=== PATIENT | male | born 1970 | race Caucasian/White ===

== ENCOUNTER 2018-03-10 16:04 | Outpatient (REF) | payer MEDICAID, SELFPAY ==
[2018-03-10 20:16] LABS: Abs Immature Grans 0.03 k/cumm (0.0-0.09); Absolute Basophil Count 0.07 k/cumm (0.0-0.2); Absolute Lymphocyte Count 2.57 k/cumm (1.2-3.4); Absolute Monocyte Count 0.36 k/cumm (0.11-0.7); Absolute Neutrophil Count 2.37 k/cumm (1.2-6.7); Basophils % 1.3; Eosinophils % 3.6; Immature Grans % 0.5; Lymphocytes % 45.9; Mean Corp. HGB Concentration 35.6 g/dL (32.0-36.0); Mean Corpuscular Hemoglobin 30.6 pg (27.0-33.0); Mean Platelet Volume 10.4 fL (8.0-11.0); Monocytes % 6.4; Neutrophils % 42.3; Platelet Count 247 x1000/uL (130-400); RBC 5.23 m/cumm (4.50-6.00); RBC Distribution Width 12.5 % (11.8-14.1)
[2018-03-10 20:23] LABS: Mono Screening Negative (Negative)
== END 2018-03-10 16:24 ==
LOC: NCHCN 16:04
PROVIDERS: PCP Specialist/Technologist Athletic Trainer; Visit Provider Specialist/Technologist Athletic Trainer
DX: R53.83 Other fatigue (principal)
CPT/HCPCS: 85025; 86308

== ENCOUNTER 2018-03-17 09:59 | Outpatient (REF) | payer MEDICAID, SELFPAY ==
[2018-03-17 19:33] LABS: Abs Immature Grans 0.02 k/cumm (0.0-0.09); Absolute Basophil Count 0.07 k/cumm (0.0-0.2); Absolute Eosinophil Count 0.25 k/cumm (0.0-0.7); Absolute Lymphocyte Count 2.58 k/cumm (1.2-3.4); Absolute Monocyte Count 0.45 k/cumm (0.11-0.7); Absolute Neutrophil Count 2.49 k/cumm (1.2-6.7); Basophils % 1.2; Eosinophils % 4.3; HCT 44.7 % (40.0-50.0); HGB 16.1 g/dL (13.5-17.5); Immature Grans % 0.3; Mean Corpuscular Hemoglobin 30.4 pg (27.0-33.0); Mean Corpuscular Volume 84.5 fL (80-95); Mean Platelet Volume 9.8 fL (8.0-11.0); Monocytes % 7.7; Neutrophils % 42.5; Platelet Count 246 x1000/uL (130-400); RBC 5.29 m/cumm (4.50-6.00); RBC Distribution Width 12.3 % (11.8-14.1); White Blood Cell Count 5.86 k/cumm (4.4-10.8)
[2018-03-17 19:47] LABS: Anion Gap 10.1 mmol/L (3-11); BUN 19 mg/dL (7-18); C-Reactive Protein 0.17 mg/dL (0.0-0.3); CO2 24.9 mmol/L (21.0-32.0); Calcium 9.1 mg/dL (8.5-10.1); Chloride 104 mmol/L (98-107); Glucose 115 mg/dL (70-100); Magnesium 1.7 mg/dL (1.8-2.4); Potassium 4.1 mmol/L (3.5-5.1); Sodium 139 mmol/L (136-145)
[2018-03-17 21:04] LABS: ESR 5 MM/HR (0-15)
== END 2018-03-17 10:19 ==
LOC: NCHCN 09:59
PROVIDERS: PCP Specialist/Technologist Athletic Trainer; Visit Provider Specialist/Technologist Athletic Trainer
DX: R53.83 Other fatigue (principal)
CPT/HCPCS: 80048; 85652; 83735; 84443; 85025; 86140

== ENCOUNTER 2018-05-22 12:17 | Outpatient (REF) | payer MEDICAID, SELFPAY ==
[2018-05-22 19:18] LABS: HCT 43.6 % (40.0-50.0); HGB 15.4 g/dL (13.5-17.5); Mean Corp. HGB Concentration 35.3 g/dL (32.0-36.0); Mean Corpuscular Hemoglobin 30.4 pg (27.0-33.0); Mean Platelet Volume 10.4 fL (8.0-11.0); Platelet Count 243 x1000/uL (130-400); RBC 5.07 m/cumm (4.50-6.00); RBC Distribution Width 12.7 % (11.8-14.1); White Blood Cell Count 6.14 k/cumm (4.4-10.8)
[2018-05-22 19:30] LABS: ALT 25 U/L (12-78); AST 16 U/L (15-37); Albumin 3.8 g/dL (3.4-5.0); Alkaline Phosphatase 97 U/L (46-116); Anion Gap 10.9 mmol/L (3-11); BUN 16 mg/dL (7-18); Bilirubin, Total 0.6 mg/dL (0.2-1.0); CO2 25.1 mmol/L (21.0-32.0); Calcium 8.6 mg/dL (8.5-10.1); Chloride 106 mmol/L (98-107); Glucose 86 mg/dL (70-100); Potassium 3.9 mmol/L (3.5-5.1); Sodium 142 mmol/L (136-145); Total Protein 6.7 g/dL (6.4-8.2)
== END 2018-05-22 12:37 ==
LOC: NCHCN 12:17
PROVIDERS: PCP Specialist/Technologist Athletic Trainer; Visit Provider Nurse Practitioner Family
DX: R53.83 Other fatigue (principal); R51 Headache
CPT/HCPCS: 80053; 85027

== ENCOUNTER 2018-08-04 05:48 | Emergency (ER) | payer MEDICAID, SELFPAY ==
--- NOTE | 2018-08-04 05:50 | W.ED.GENAD ---
Discharge Plan Disposition Patient Disposition: HOME Condition: Stable Discharge Details Chief Complaint: Abd Prob Clinical Impression: Abdominal pain Primary Care Provider: Braxton Suero ED Provider: Maira Noel Home Meds and New Rx's Prescriptions: New ondansetron HCl [Zofran] 4 mg tablet 4 mg PO TID PRN (Reason: nausea and vomiting) Qty: 6 RF: 0 dicyclomine 20 mg tablet 20 mg PO QID PRN (Reason: abdominal pain) Qty: 10 RF: 0 Continued omeprazole 40 MG capsule,delayed release(DR/EC) 40 mg PO BID Qty: 60 RF: 3 aspirin 81 mg Tablet,Delayed Release (Dr/Ec) 81 mg PO DAILY RF: 0 Discharge Instructions Instructions: Abdominal Pain (ED) Additional Instructions: Take the Zofran as needed and directed for nausea and vomiting and the Bentyl as needed and directed for pain. Alternate Tylenol and Motrin as needed directed for pain. Follow-up with gastroenterology appointment scheduled for you at [facility] on September 29 at 9 AM. Return immediately to the emergency department with any worsening or concerning symptoms. Discharge Data Discharge Date/Time-TO BE ENTERED AT DEPARTURE: 08/04/18 09:40 Discharge Physician: Maira Noel Medical Decision Making <Dung Valero MD - Last Filed: 08/04/18 19:52> 48 yo male with hx of diverticulitis, gerd, comes in with chief complaint of left lower abdominal pain worsening for 1 day. Has had nausea but no vomit, denies fevers. Has had a ex lap and states they took his appendix out when they did this. He has no scrotal pain or swelling and no urinary symptoms. On exam he has no upper or right sided pain, has llq pain with minimal guarding. Will obtain lab work and imaging to eval for possible diverticulitis among other pathology pt's labs are unremarkable, awaiting CT. Still has quite a bit of pain, will order dilaudid CT scan shows no acute findings. Still has pain in the left lower and now has pain in the right lower abdomen, still no pain on testicle exam. he has mild guarding still in the left and is in severe pain. Will obtain surgical consult given his degree of pain pt will be signed out to oncoming provider pending surgical consult Differential Diagnosis diverticulitis, pneumoperitoneum, colitis Medical Records Medical records reviewed: Yes I reviewed the patient's medical records. Imaging Data Radiologic Study: Attestation: I personally reviewed and interpreted this imaging study as follows: Imaging: CT Scan Radiologist's impression: no acute findings Lab Data Lab results reviewed: Yes I reviewed the patient's lab results. <Maira Ross Schwartzfatimah, - Last Filed: 08/04/18 09:31> Please see Dr. Valero's note for initial presentation, exam and plan. Patient is a 48-year-old male with a history of diverticulitis, GERD, depression, suicide attempt and chronic abdominal pain who presented to ED with complaint of constant sharp lower abdominal pain, worse in the left lower quadrant since yesterday. Patient states the pain was worse after eating popcorn and felt similar to his previous episode of diverticulitis 3 years ago. Patient had lab work and imaging done on arrival which were unremarkable. Per Dr. Valero's reassessment, patient still in severe pain and was referred for surgical consult. Case was endorsed to follow-up with Dr. Teran regarding her recommendations. Discussed with Dr. Teran and she has seen patient multiple times in the past for chronic abdominal pain, as well as performed an EGD and colonoscopy in May of last year which noted mild esophagitis, gastritis, mild sigmoid diverticulosis as well as small internal hemorrhoids. She reviewed the CAT scan and does not see any acute findings and has no other recommendations for patient at this time. She states that there was a possible consideration for IBS in the past. She had referred patient to GI at [facility] in the past and recommends that patient follow-up with them for reevaluation. Patient has no risk factors or physical exam findings consistent with ischemia, so I do not see further indication for imaging for this at this time. Patient had a CTA abdomen 10/2017 which was negative. Had a long discussion with patient in the room as he is still complaining of pain. Patient discussed that he has been told in the past that he possibly could have IBS. Discussed with patient that with reassuring vital signs, lab work and CT imaging, do not see any acute indication for further testing or admission at this time and he is understanding of this and feels okay to go home at this time. Will give a dose of Zofran and Bentyl here as well as prescriptions for home. Care management was able to arrange for a follow-up appointment for patient with gastroenterology at [facility] on September 29 at 9 AM. He was also placed on a wait list. He is instructed to return here immediately with any significant worsening or new concerning symptoms. Medical Records Medical records reviewed: Yes I reviewed the patient's medical records. Imaging Data Radiologic Study: Radiologist's impression: CT Abdomen and Pelvis With Contrast EXAM DATE/TIME: 08/04/2018 5:56 AM FINDINGS: Lungs: Stable 7 mm subpleural nodule within the posterior segment of the left lower lobe (4:1). ABDOMEN: Liver: Normal. No mass. Gallbladder and bile ducts: Normal. No calcified stones. No ductal dilation. Pancreas: Normal. No ductal dilation. Spleen: Normal. No splenomegaly. Adrenals: Normal. No mass. Kidneys and ureters: Exophytic bilateral renal cysts. Stomach and bowel: Colonic diverticulosis. Appendix: Appendectomy. PELVIS: Bladder: Unremarkable as visualized. Reproductive: Prostate is enlarged. ABDOMEN and PELVIS: Intraperitoneal space: Normal. No free air. No significant fluid collection. Bones/joints: No acute fracture. No dislocation. Soft tissues: Unremarkable. Vasculature: Normal. No abdominal aortic aneurysm. Lymph nodes: Normal. No enlarged lymph nodes. IMPRESSION: No evidence of acute abdominopelvic pathology. Lab Data Lab results reviewed: Yes I reviewed the patient's lab results. Laboratory Tests Range/Units 08/04/18 08/04/18 08/04/18 06:16 06:16 06:16 WBC (4.4-10.8) k/cumm 5.18 RBC (4.50-6.00) m/cumm 5.26 Hgb (13.5-17.5) g/dL 16.0 Hct (40.0-50.0) % 44.2 MCV (80-95) fL 84.0 MCH (27.0-33.0) pg 30.4 MCHC (32.0-36.0) g/dL 36.2 H RDW (11.8-14.1) % 12.5 Plt Count (130-400) x1000/uL 224 MPV (8.0-11.0) fL 9.5 Immature Gran % 1.0 Neutrophils % 48.5 Lymphocytes % 36.3 Monocytes % 8.1 Eosinophils % 4.4 Basophils % 1.7 Absolute Neutrophils (1.2-6.7) k/cumm 2.51 Absolute Lymphocytes (1.2-3.4) k/cumm 1.88 Absolute Monocytes (0.11-0.7) k/cumm 0.42 Absolute Eosinophils (0.0-0.7) k/cumm 0.23 Absolute Basophils (0.0-0.2) k/cumm 0.09 PT (9.3-11.0) sec 10.2 INR (0.9-1.1) 1.0 APTT (21.0-31.4) sec 24.3 Sodium (136-145) mmol/L 139 Potassium (3.5-5.1) mmol/L 3.7 Chloride (98-107) mmol/L 103 Carbon Dioxide (21.0-32.0) mmol/L 27.9 Anion Gap (3-11) mmol/L 8.1 BUN (7-18) mg/dL 17 Creatinine (0.70-1.30) mg/dL 1.10 Estimated GFR/1.73 m2 (mL/min/1.73m2) >= 60.00 Glucose (70-100) mg/dL 125 H Calcium (8.5-10.1) mg/dL 8.3 L Magnesium (1.8-2.4) mg/dL 1.8 Total Bilirubin (0.2-1.0) mg/dL 0.6 AST (15-37) U/L 16 ALT (12-78) U/L 32 Alkaline Phosphatase (46-116) U/L 90 Total Protein (6.4-8.2) g/dL 6.7 Albumin (3.4-5.0) g/dL 3.6 Lipase (73-393) U/L 93 HPI <Dung Valero MD - Last Filed: 08/04/18 19:52> General Mode of arrival: ambulatory. Date/Time Provider Initiated Documentation: 08/04/18 05:50. Limitations to Documentation: no limitations. Information obtained by: patient. History of Present Illness 48 year old M presents to the emergency department with the chief complaint of abdominal pain, described as moderate, Quality is described as stabbing, and is localized to the abdomen. Patient reports no radiation. Patient started experiencing this day(s) (1) and it has been constant. No relieving factors improve symptom(s), No exacerbating factors reported . Patient notes other (nausea). Patient did receive the following treatments prior to arrival, none Related Data Home Medications Medication Instructions Recorded Confirmed omeprazole 40 mg PO BID #60 tab-cap 06/09/17 08/04/18 aspirin 81 mg PO DAILY 08/04/18 08/04/18 dicyclomine 20 mg PO QID PRN #10 tab 08/04/18 ondansetron HCl [Zofran] 4 mg PO TID PRN #6 tab 08/04/18 Previous Rx's Medication Instructions Recorded omeprazole 40 mg PO BID #60 tab-cap 06/09/17 dicyclomine 20 mg PO QID PRN #10 tab 08/04/18 ondansetron HCl [Zofran] 4 mg PO TID PRN #6 tab 08/04/18 Allergies Allergy/AdvReac Type Severity Reaction Status Date / Time No Known Allergies Allergy Unverified 08/04/18 05:53 Review of Systems <Dung Valero MD - Last Filed: 08/04/18 19:52> Review of Systems All systems reviewed & are unremarkable except as noted in HPI and below Constitutional Denies chills and Denies fever(s) Cardiovascular Denies chest pain and Denies dyspnea Respiratory Denies cough and Denies dyspnea Gastrointestinal Denies abdominal pain, Denies nausea and Denies vomiting PFSH <Dung Valero MD - Last Filed: 08/04/18 19:52> Medical History Diverticulitis Family History Grandfather No problems noted. Social History Smoking/Tobacco Use Status: Never Drug use: Occasionally Do you feel safe at home: Yes Do you feel safe in your relationship?: Yes Exam <Dung Valero MD - Last Filed: 08/04/18 19:52> Const General: no acute distress Orientation: alert HENOR Head: normal to inspection Ears: external ears normal General nose exam: external nose normal Mouth: moist mucous membranes Eyes General: appearance normal, both eyes and all related structures Neck Neck: normal visual inspection Resp Effort & Inspection: normal respiratory effort and able to speak in complete sentences Cardio Rate: regular rate GI Inspection: normal to inspection and no abdominal wall ecchymosis Skin General skin exam: no rashes or lesions noted Neuro General: alert and oriented x3 Extrem General: normal to inspection Psych Mental Status: mental status grossly normal Sign Out <Dung Valero MD - Last Filed: 08/04/18 19:52> Sign Out Data: Sign Out Comment: follow up on general surgery recommendations Last updated by Dung Valero MD at 08/04/18 07:44
[2018-08-04 05:51] VITALS: BP 158/107; PULSE 65; RESP 22; TEMP 37; O2SAT 96
--- NOTE | 2018-08-04 05:55 | DI.CT_ITS ---
SYMPTOM/DIAGNOSIS: LT LOW ABD PAIN ABDOMEN AND PELVIC CT: CT scan of the abdomen and pelvis was performed following the uneventful administration of intravenous contrast material. Comparison examination is 05/30/17. The lung bases again show left lower lobe pulmonary nodules which appear stable. The liver is normal in size. The portal, superior mesenteric and splenic veins are patent. The gallbladder is negative. There is no biliary ductal dilatation. The pancreas, spleen and adrenal glands are unremarkable. The kidneys show normal and symmetric enhancement. No evidence of a solid renal mass or obstruction is present. There are stable bilateral renal cysts. The urinary bladder is intact. The reproductive organs are unremarkable. The abdominal aorta is of normal caliber with mild atherosclerosis. No aneurysmal dilatation is present. No significant abdominal or pelvic adenopathy, ascites or pneumoperitoneum is present. There is diverticulosis seen in the sigmoid colon but no evidence of acute diverticulitis. The bowel is otherwise unremarkable. No findings of an acute appendicitis are present. The bones appear intact. IMPRESSION: No evidence of an acute abdomen.
[2018-08-04] MEDS: Ondansetron 4 MG/2 ML VIAL IVP (06:18)
[2018-08-04] MEDS: Normal Saline 1,000 ML 1000 ML IV (06:18)
[2018-08-04] MEDS: Ketorolac 15 MG/ML VIAL IVP (06:18)
[2018-08-04 06:23] LABS: Abs Immature Grans 0.05 k/cumm (0.0-0.09); Absolute Basophil Count 0.09 k/cumm (0.0-0.2); Absolute Eosinophil Count 0.23 k/cumm (0.0-0.7); Absolute Lymphocyte Count 1.88 k/cumm (1.2-3.4); Absolute Monocyte Count 0.42 k/cumm (0.11-0.7); Absolute Neutrophil Count 2.51 k/cumm (1.2-6.7); Basophils % 1.7; Eosinophils % 4.4; HCT 44.2 % (40.0-50.0); Lymphocytes % 36.3; Mean Corp. HGB Concentration 36.2 g/dL (32.0-36.0); Mean Corpuscular Hemoglobin 30.4 pg (27.0-33.0); Mean Platelet Volume 9.5 fL (8.0-11.0); Monocytes % 8.1; Neutrophils % 48.5; Platelet Count 224 x1000/uL (130-400); RBC 5.26 m/cumm (4.50-6.00); RBC Distribution Width 12.5 % (11.8-14.1); White Blood Cell Count 5.18 k/cumm (4.4-10.8)
[2018-08-04 06:36] LABS: ALT 32 U/L (12-78); AST 16 U/L (15-37); Albumin 3.6 g/dL (3.4-5.0); Alkaline Phosphatase 90 U/L (46-116); Anion Gap 8.1 mmol/L (3-11); BUN 17 mg/dL (7-18); Bilirubin, Total 0.6 mg/dL (0.2-1.0); CO2 27.9 mmol/L (21.0-32.0); Calcium 8.3 mg/dL (8.5-10.1); Chloride 103 mmol/L (98-107); Glucose 125 mg/dL (70-100); Lipase 93 U/L (73-393); Magnesium 1.8 mg/dL (1.8-2.4); PTT Activated 24.3 sec (21.0-31.4); Potassium 3.7 mmol/L (3.5-5.1); Prothrombin Time 10.2 sec (9.3-11.0); Sodium 139 mmol/L (136-145); Total Protein 6.7 g/dL (6.4-8.2)
[2018-08-04] MEDS: Omnipaque 350 MG/ML 100 ML BTL IJ (06:37)
[2018-08-04] MEDS: HYDROmorphone 2 MG/ML VIAL 1 MG IVP (06:55)
--- NOTE | 2018-08-04 07:29 | DI.VRAD_ITS ---
EXAM: CT Abdomen and Pelvis With Contrast EXAM DATE/TIME: 08/04/2018 5:56 AM CLINICAL HISTORY: 48 years old, male; Abdominal pain; Localized; Left lower quadrant (llq); Patient HX: HX diverticulitis; Additional info: Bloody stool a couple days after eating popcorn. HX diverticulitis TECHNIQUE: Imaging protocol: Axial computed tomography images of the abdomen and pelvis with intravenous contrast. Coronal and sagittal reformatted images were created and reviewed. Radiation optimization: All CT scans at this facility use at least one of these dose optimization techniques: automated exposure control; mA and/or kV adjustment per patient size (includes targeted exams where dose is matched to clinical indication); or iterative reconstruction. Contrast material: [id number]; Contrast volume: 100 ml; Contrast route: IV; COMPARISON: CT ABD PELVIS WITH CONTRAST 05/30/2017 5:30 PM FINDINGS: Lungs: Stable 7 mm subpleural nodule within the posterior segment of the left lower lobe (4:1). ABDOMEN: Liver: Normal. No mass. Gallbladder and bile ducts: Normal. No calcified stones. No ductal dilation. Pancreas: Normal. No ductal dilation. Spleen: Normal. No splenomegaly. Adrenals: Normal. No mass. Kidneys and ureters: Exophytic bilateral renal cysts. Stomach and bowel: Colonic diverticulosis. Appendix: Appendectomy. PELVIS: Bladder: Unremarkable as visualized. Reproductive: Prostate is enlarged. ABDOMEN and PELVIS: Intraperitoneal space: Normal. No free air. No significant fluid collection. Bones/joints: No acute fracture. No dislocation. Soft tissues: Unremarkable. Vasculature: Normal. No abdominal aortic aneurysm. Lymph nodes: Normal. No enlarged lymph nodes. IMPRESSION: No evidence of acute abdominopelvic pathology. Dictated and Authenticated by: Melvin Flood MD. Ordering:LADI Razo MD
[2018-08-04] MEDS: Dicyclomine 20 MG TAB PO (08:51)
[2018-08-04] MEDS: Ondansetron O.D.T. 4 MG TABEF PO (08:52)
[2018-08-04 09:38] VITALS: BP 130/78; PULSE 72; RESP 18; TEMP 37; O2SAT 96
--- NOTE | 2018-08-04 09:58 | PDOC.ERCMPRO ---
Care Management Progress Note 08/04-Dr. Noel requested assistance with a [facility] appt for abdominal pain ?IBS. Dr. jalloh has seen Malachi and referred him to [facility] in the past. Called [facility] and spoke with Laura. Laura scheduled Malachi to see Maira Stauffer APRN on September 29 at 0900. Laura has also added Malachi to the high priority wait list. Laura requested provider note and demographics be faxed to [phone] for which was done. Patient given appt card. Dr. Noel aware and in agreement with the above.
--- NOTE | 2018-08-04 10:09 | CMPROGNOTE_ITS ---
Care Management Progress Note 08/04-Dr. Noel requested assistance with [place] [facility] [place]. Dr. jalloh has seen Malachi and referred him [place] [facility] [place] [place]. [place] [facility] and spoke with Laura. Laura scheduled Malachi to see Maira Stauffer APRN on September 29 at 0900. Laura has also added Malachi to the high priority wait list. Laura requested provider note and demographics be faxed to [phone] for which was done. Patient given appt card. Dr. Noel aware and in agreement with the above.
== END 2018-08-04 09:40 | disposition home or self-care (01) ==
PROVIDERS: Emergency Medicine; Emergency Provider Physician Assistant; PCP Specialist/Technologist Athletic Trainer
DX: R10.31 Right lower quadrant pain (principal); R10.32 Left lower quadrant pain; Z98.890 Other specified postprocedural states
CPT/HCPCS: 80053; 83690; 96361; 96374; 96375; 99285; 74177; 83735; 85025; 85610; 85730; 99284; J1885; J2405; J3490

== ENCOUNTER 2018-08-05 15:28 | Emergency (ER) | payer MEDICAID, SELFPAY ==
[2018-08-05 16:08] VITALS: BP 150/83; PULSE 57; RESP 16; TEMP 36.7; O2SAT 98
[2018-08-05] MEDS: Ondansetron 4 MG/2 ML VIAL IVP (16:19)
[2018-08-05] MEDS: Normal Saline 500 ML 1000 ML IV (16:19)
[2018-08-05] MEDS: Pantoprazole 40 MG VIAL IVP (16:25)
[2018-08-05] MEDS: Metoclopramide 10 MG/2 ML VIAL IVP (16:30)
[2018-08-05 16:42] LABS: Abs Immature Grans 0.05 k/cumm (0.0-0.09); Absolute Basophil Count 0.09 k/cumm (0.0-0.2); Absolute Eosinophil Count 0.23 k/cumm (0.0-0.7); Absolute Lymphocyte Count 2.77 k/cumm (1.2-3.4); Absolute Monocyte Count 0.49 k/cumm (0.11-0.7); Absolute Neutrophil Count 2.55 k/cumm (1.2-6.7); Basophils % 1.5; Eosinophils % 3.7; HCT 42.1 % (40.0-50.0); HGB 15.3 g/dL (13.5-17.5); Immature Grans % 0.8; Lymphocytes % 44.8; Mean Corp. HGB Concentration 36.3 g/dL (32.0-36.0); Mean Corpuscular Hemoglobin 30.7 pg (27.0-33.0); Mean Corpuscular Volume 84.4 fL (80-95); Mean Platelet Volume 9.7 fL (8.0-11.0); Monocytes % 7.9; Neutrophils % 41.3; Platelet Count 223 x1000/uL (130-400); RBC 4.99 m/cumm (4.50-6.00); RBC Distribution Width 12.4 % (11.8-14.1); White Blood Cell Count 6.18 k/cumm (4.4-10.8)
[2018-08-05] MEDS: Sucralfate 1 GM TAB PO (16:45)
[2018-08-05 16:54] LABS: ALT 31 U/L (12-78); AST 15 U/L (15-37); Albumin 3.6 g/dL (3.4-5.0); Alkaline Phosphatase 91 U/L (46-116); BUN 13 mg/dL (7-18); Bilirubin, Total 0.4 mg/dL (0.2-1.0); CREATININE 1.16 mg/dL (0.70-1.30); Calcium 8.7 mg/dL (8.5-10.1); Chloride 104 mmol/L (98-107); Glucose 101 mg/dL (70-100); Lipase 96 U/L (73-393); Potassium 3.5 mmol/L (3.5-5.1); Sodium 138 mmol/L (136-145); Total Protein 6.8 g/dL (6.4-8.2)
[2018-08-05 17:09] LABS: Troponin I < 0.02 ng/mL (0.00-0.06)
--- NOTE | 2018-08-05 18:38 | ED.GENADUL_ITS ---
Discharge Plan Disposition Patient Disposition: HOME Condition: Improving Discharge Details Chief Complaint: Abd Prob Clinical Impression: Abdominal pain, Gastritis Primary Care Provider: Nanci Spivey ED Provider: Gian Salazar Home Meds and New Rx's Prescriptions: New ranitidine HCl 300 mg capsule 300 mg PO QHS Qty: 60 RF: 0 sucralfate [Carafate] 100 mg/mL suspension 10 ml PO QID Qty: 420 RF: 2 dicyclomine 20 mg tablet 20 mg PO QID Qty: 20 RF: 0 No Action omeprazole 40 MG capsule,delayed release(DR/EC) 40 mg PO BID Qty: 60 RF: 3 aspirin 81 mg Tablet,Delayed Release (Dr/Ec) 81 mg PO DAILY RF: 0 ondansetron HCl [Zofran] 4 mg tablet 4 mg PO TID PRN (Reason: nausea and vomiting) Qty: 6 RF: 0 dicyclomine 20 mg tablet 20 mg PO QID PRN (Reason: abdominal pain) Qty: 10 RF: 0 Discharge Instructions Instructions: Gastritis (ED), Abdominal Pain (ED) Additional Instructions: Please avoid any citrus-based products, mint products, spicy products, tomato- based products, caffeine, or coffee. Take the medication as directed. Use additional Mylanta as needed for pain. Please take the Bentyl as directed. If you notice any worsening of your symptoms, or any new symptoms such as vomiting, diarrhea, worsening abdominal pain, fever, chills, shortness of breath, chest pain, numbness, weakness, or fainting , please return immediately to the emergency department for reevaluation. Please follow up with your primary care provider as soon as possible for reassessment and reevaluation. As always, it was a pleasure participating in your medical care today. Stand Alone Forms: Work Release Referrals: Nanci Spivey [Primary Care Provider] - Discharge Data Discharge Date/Time-TO BE ENTERED AT DEPARTURE: 08/05/18 18:50 Medical Decision Making This is a pleasant 48-year-old male who presents today for evaluation of diffuse abdominal pain. He was seen and assessed yesterday, had a very appropriate work-up and after no significant abnormalities on CT imaging or labs, and feeling better he was discharged home with follow-up on an outpatient basis. He presents today for continuation of his mild to moderate generalized abdominal pain. There appears to be no focality. He has no vomiting or diarrhea. He does admit to occasional bright red blood in his stools, this is usually on the outside. His pain seems to be notable is really worse after eating, and the pain becomes severe roughly 5 to 10 minutes after eating. Although it is diffuse in nature he does describe some focality in the left upper abdominal quadrant. No clinical evidence of an appendicitis or acute cholecystitis clinically. Vital signs are notably reassuring with no tachycardia or fever. I did present the option of reimaging in the patient through shared decision making process would like to hold off on any additional CT scans. We did elect to do a repeat laboratory evaluation, and treat with a GI cocktail as there is a strong concern that his symptoms seem to be related to a gastric ulcer-like presentation, especially with his known history of this. Laboratory work-up has returned, lipase is normal, troponin is normal, EKG benign, no white count, electrolyte abnormality, bandemia or left shift. He has notably reassuring labs. After the GI cocktail the patient was actually feeling much better. He continues to demonstrate a nonsurgical abdomen with no medical evidence of an acute surgical pathology or recurrent life-threatening etiology requiring immediate admission or surgical intervention. With the patient's known history of gastric ulcer disease, those symptoms ameliorated by a GI cocktail, I do feel that his symptoms are most likely secondary to peptic ulcer disease. Stool Hemoccult was performed and this was negative for any evidence of blood. Clinical signs and symptoms as well as laboratory work-up is inconsistent with upper or lower GI bleed, I imagine it is mild hemorrhoids and fissures causing the bright red blood. We will start the patient on maximum dose [id number], recommend continuation of his omeprazole. We will give Bentyl, prescription for Carafate, for home use. We discussed the absolute importance of strict diet adherence. Discussed red flags for which to return and the importance of follow-up with his GI specialist at [facility]. I have extensively reviewed the treatment plan and discharge instructions with the patient and their family. I have addressed all patient concerns at this time. The patient and family was made aware of what symptoms to monitor for that would warrant a return to the emergency department. Discussed the plan with the patient and family, they demonstrate verbal understanding and agreement with our assessment and plan at this time. EKG 17: 22 Rate 52, sinus bradycardia, GA 200, intervals otherwise normal, no significant ST elevations or depressions, inverted T wave in lead III and aVR, unchanged from prior EKG on 11/13/2017. No evidence of STEMI. HPI General Date/Time Provider Initiated Documentation: 08/05/18 15:37 . HPI Narrative: This is a 48-year-old male with a past medical history of known gastritis, gastric ulcers, who presents today for evaluation of diffuse abdominal pain. The patient was seen and assessed here yesterday, at that time he had a thorough work-up by my colleagues Dr. Valero and Dr. Noel. At that time he had a negative CT scan of his abdomen and pelvis, benign laboratory work-up. Surgical consult was requested of Dr. Teran at that time, and although she did not personally see the patient she did review the labs and images and felt that there was nothing that she could add to his current management. Eventually the patient's pain improved and he was discharged home after having a gastroenterology appointment set up for him at [facility]. Patient is on omeprazole but denies any other new GI medications. He presents today for continuation of the pain. He describes it as gnawing and aching with associated nausea throughout his entire abdomen. No specific focality. He does smoke marijuana but only occasionally. He denies any vomiting or dry heaving. He denies any diarrhea. He does admit to seeing occasional bright red blood on the outside of his stool. He denies any melena. He states that when this occurs he does have pain with his bowel movement. After he does have a bowel movement his pain does slightly improved. He does also admit to bloating. Mild pain in his low back, and his pain is notably worsened with eating. Patient states that the pain gets significantly worse roughly 5 to 10 minutes after he eats. He does drink 1 cup of coffee a day, he denies any spicy foods, but occasionally does have tomato-based foods and mint-based foods. He denies significant citric food intake. Patient denies any other modifying factors. No other complaints at this time. Related Data Home Medications Medication Instructions Recorded Confirmed omeprazole 40 mg PO BID #60 tab-cap 06/09/17 08/05/18 aspirin 81 mg PO DAILY 08/04/18 08/05/18 dicyclomine 20 mg PO QID PRN #10 tab 08/04/18 08/05/18 ondansetron HCl [Zofran] 4 mg PO TID PRN #6 tab 08/04/18 08/05/18 dicyclomine 20 mg PO QID #20 tab 08/05/18 ranitidine HCl 300 mg PO QHS #60 cap 08/05/18 sucralfate [Carafate] 10 ml PO QID #420 ml 08/05/18 Previous Rx's Medication Instructions Recorded omeprazole 40 mg PO BID #60 tab-cap 06/09/17 dicyclomine 20 mg PO QID PRN #10 tab 08/04/18 ondansetron HCl [Zofran] 4 mg PO TID PRN #6 tab 08/04/18 dicyclomine 20 mg PO QID #20 tab 08/05/18 ranitidine HCl 300 mg PO QHS #60 cap 08/05/18 sucralfate [Carafate] 10 ml PO QID #420 ml 08/05/18 Allergies Allergy/AdvReac Type Severity Reaction Status Date / Time No Known Allergies Allergy Unverified 08/05/18 17:47 General Stated Complaint: Abd Prob NEELIMA: 3 Review of Systems Review of Systems All systems reviewed & are unremarkable except as noted in HPI and below PFSH Medical History Diverticulitis Family History Grandfather No problems noted. Social History Smoking/Tobacco Use Status: Never Drug use: Occasionally Do you feel safe at home: Yes Do you feel safe in your relationship?: Yes Exam Narrative Exam Narrative: 1.Const: Well-nourished, Well-developed, appearing stated age 2.Eyes: PERRL, no conjunctival injection, and symmetrical lids. 3.ENT: Atraumatic external nose and ears. Moist MM. Neck: Symmetric, trachea midline, No thyromegaly. 4.CVS: +S1/S2, No murmurs or gallops. Peripheral pulses 2+ and equal in all extremities. Brisk capillary refill in all extremities. 5.RESP: Unlabored respiratory effort. Clear to auscultation bilaterally. No wheezes rales or rhonchi 6.GI: Soft, Nondistended, No hepatosplenomegaly. No guarding or rebound. No pain at McBurney's point, negative Kline sign. Diffuse subjective tenderness throughout. No flank or CVA tenderness. Negative obturator and psoas signs. 7.MSK: Normocephalic/Atraumatic, Extremities w/o deformity or ttp No cyanosis or clubbing, Normal movement of all extremities 8.Skin: Warm, Dry. No rashes or lesions. 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 Sensation grossly intact, no focal neurologic deficits. 10.Psych: (AAO) x3. Appropriate mood and affect Course Vital Signs Temperature 36.7 C 08/05/18 16:08 Pulse 57 L 08/05/18 16:08 Respiratory Rate 16 08/05/18 16:08 Blood Pressure 150/83 H 08/05/18 16:08 Pulse Oximetry 98 08/05/18 16:08 Temperature 36.7 C 08/05/18 16:08 Temperature Source Skin 08/05/18 16:08 Pulse 57 L 08/05/18 16:08 Respiratory Rate 16 08/05/18 16:08 Respiratory Effort 08/05/18 16:08 Blood Pressure 150/83 H 08/05/18 16:08 Blood Pressure Position Sitting 08/05/18 16:08 Pulse Oximetry 98 08/05/18 16:08 Oxygen Delivery Method Room Air 08/05/18 16:08 Oxygen Flow Rate 0 08/05/18 16:08 Pain Level 9 08/05/18 16:08 Lab/Test Results Lab/Test Results: Laboratory Tests Range/Units 08/05/18 08/05/18 08/05/18 16:05 16:05 16:05 WBC (4.4-10.8) k/cumm 6.18 RBC (4.50-6.00) m/cumm 4.99 Hgb (13.5-17.5) g/dL 15.3 Hct (40.0-50.0) % 42.1 MCV (80-95) fL 84.4 MCH (27.0-33.0) pg 30.7 MCHC (32.0-36.0) g/dL 36.3 H RDW (11.8-14.1) % 12.4 Plt Count (130-400) x1000/uL 223 MPV (8.0-11.0) fL 9.7 Immature Gran % 0.8 Neutrophils % 41.3 Lymphocytes % 44.8 Monocytes % 7.9 Eosinophils % 3.7 Basophils % 1.5 Absolute Neutrophils (1.2-6.7) k/cumm 2.55 Absolute Lymphocytes (1.2-3.4) k/cumm 2.77 Absolute Monocytes (0.11-0.7) k/cumm 0.49 Absolute Eosinophils (0.0-0.7) k/cumm 0.23 Absolute Basophils (0.0-0.2) k/cumm 0.09 Sodium (136-145) mmol/L 138 Potassium (3.5-5.1) mmol/L 3.5 Chloride (98-107) mmol/L 104 Carbon Dioxide (21.0-32.0) mmol/L 27.0 Anion Gap (3-11) mmol/L 7.0 BUN (7-18) mg/dL 13 Creatinine (0.70-1.30) mg/dL 1.16 Estimated GFR/1.73 m2 (mL/min/1.73m2) >= 60.00 Glucose (70-100) mg/dL 101 H Calcium (8.5-10.1) mg/dL 8.7 Total Bilirubin (0.2-1.0) mg/dL 0.4 AST (15-37) U/L 15 ALT (12-78) U/L 31 Alkaline Phosphatase (46-116) U/L 91 Troponin I (0.00-0.06) ng/mL < 0.02 Total Protein (6.4-8.2) g/dL 6.8 Albumin (3.4-5.0) g/dL 3.6 Lipase (73-393) U/L 96
[2018-08-05] MEDS: Dicyclomine 20 MG TAB PO (18:40)
[2018-08-05 18:55] VITALS: BP 138/93; PULSE 56; RESP 16; TEMP 36.7; O2SAT 98
[2018-08-11 12:19] LABS: Helicobacter pylori Ag, Feces Negative (NEGAT)
== END 2018-08-05 18:50 | disposition home or self-care (01) ==
PROVIDERS: Emergency Provider Student in an Organized Health Care Education/Training Program; PCP Nurse Practitioner Family
DX: R10.84 Generalized abdominal pain (principal); R10.12 Left upper quadrant pain; K29.00 Acute gastritis without bleeding; R11.0 Nausea
CPT/HCPCS: 36415; 80053; 83690; 87338; 93005; 96361; 96374; 96375; 99284; 84484; 85025; 93010; 99285; J2405; J2765

== ENCOUNTER 2018-08-11 10:24 | Emergency (ER) | payer MEDICAID, SELFPAY ==
[2018-08-11 10:31] VITALS: BP 140/92; PULSE 52; PULSE 55; RESP 11; O2SAT 96
[2018-08-11 10:34] VITALS: BP 164/98; PULSE 53; RESP 12; TEMP 36.5; O2SAT 96
[2018-08-11 10:46] VITALS: BP 144/98; PULSE 50; PULSE 51; RESP 11; O2SAT 97
--- NOTE | 2018-08-11 10:56 | DI.CT_ITS ---
SYMPTOMS/DIAGNOSIS: LEFT EYE VISION LOSS NONCONTRAST HEAD CT: No intracranial hemorrhage, mass or infarct is seen. The ventricles are normal in size. There is no evidence of atrophy. The sinuses show mild mucosal thickening. No air fluid levels or bony destruction is seen. The mastoid air cells appear clear. IMPRESSION: Sinus disease, otherwise negative.
[2018-08-11 11:01] VITALS: BP 161/100; PULSE 47; PULSE 56; RESP 16; O2SAT 95
[2018-08-11 11:14] LABS: Abs Immature Grans 0.06 k/cumm (0.0-0.09); Absolute Basophil Count 0.08 k/cumm (0.0-0.2); Absolute Eosinophil Count 0.21 k/cumm (0.0-0.7); Absolute Monocyte Count 0.38 k/cumm (0.11-0.7); Absolute Neutrophil Count 2.34 k/cumm (1.2-6.7); Basophils % 1.4; Eosinophils % 3.6; HGB 15.7 g/dL (13.5-17.5); Lymphocytes % 46.8; Mean Corp. HGB Concentration 36.5 g/dL (32.0-36.0); Mean Corpuscular Volume 84.8 fL (80-95); Mean Platelet Volume 9.4 fL (8.0-11.0); Monocytes % 6.6; Neutrophils % 40.6; Platelet Count 224 x1000/uL (130-400); RBC 5.07 m/cumm (4.50-6.00); RBC Distribution Width 12.6 % (11.8-14.1); White Blood Cell Count 5.77 k/cumm (4.4-10.8)
[2018-08-11] MEDS: Acetaminophen 500 MG TAB 1000 MG PO (11:27)
[2018-08-11] MEDS: diphenhydrAMINE 50 MG/ML VIAL 25 MG IVP (11:27)
[2018-08-11] MEDS: Normal Saline 1,000 ML 1000 ML IV (11:28)
[2018-08-11] MEDS: Prochlorperazine 10 MG/2 ML VIAL IVP (11:29)
--- NOTE | 2018-08-11 11:30 | ED.GENADUL_ITS ---
Discharge Plan Disposition Patient Disposition: HOME Condition: Good Discharge Details Chief Complaint: Headache Clinical Impression: Ophthalmic migraine Primary Care Provider: Nanci Spivey ED Provider: Gian Salazar Home Meds and New Rx's Prescriptions: New sumatriptan succinate [Imitrex] 25 mg tablet 25 mg PO ONCE Qty: 10 RF: 0 No Action omeprazole 40 MG capsule,delayed release(DR/EC) 40 mg PO BID Qty: 60 RF: 3 aspirin 81 mg Tablet,Delayed Release (Dr/Ec) 81 mg PO DAILY RF: 0 dicyclomine 20 mg tablet 20 mg PO QID PRN (Reason: abdominal pain) Qty: 10 RF: 0 ranitidine HCl 300 mg capsule 300 mg PO QHS Qty: 60 RF: 0 sucralfate [Carafate] 100 mg/mL suspension 10 ml PO QID Qty: 420 RF: 2 Discharge Instructions Instructions: Ocular Migraine (ED) Additional Instructions: Please follow-up promptly with neurology. I suspect that you have an ocular migraine as the cause of your symptoms. If you notice any return of your symptoms so please return immediately for reassessment. 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 If you notice any worsening of your symptoms, or any new symptoms such as vomiting, diarrhea, fever, chills, shortness of breath, chest pain, numbness, weakness, or fainting , please return immediately to the emergency department for reevaluation. Please follow up with your primary care provider as soon as possible for reassessment and reevaluation. As always, it was a pleasure participating in your medical care today. Referrals: Nanci Spivey [Primary Care Provider] - Medical Decision Making This is a very pleasant 48-year-old male who presents for intermittent left eye vision loss over the last 2 days. Episodes last 1 to 2 minutes, he has had 11 episodes total between today and yesterday. He had a very thorough ophthalmologic work-up yesterday at the [facility], no abnormaliti es were noted at that time. He was discharged home but had continuation and worsening of his symptoms today. He was again seen and assessed there, they continued to note no abnormalities and recommended evaluation here for further assessment. Exam demonstrates a notably normal neurologic exam, normal sensation, and normal vision. Pupils equal round reactive, the retina shows no signs of a vascular component. Bedside ultrasound shows no abnormalities, both eyes were compared and are symmetric in identical, optic nerve is less than 5 mm. Exam demonstrates no evidence of neurologic deficit, neck pain or stiffness. No clinical evidence of meningitis. Pressures in the eyes are symmetric bilaterally and 14 bilaterally. No evidence of acute angle-closure glaucoma. Vision is intact. Differential includes temporal arteritis which I feel less likely, complex optic migraine, or mass. We will get a CT scan to rule out acute intracranial process. We will treat with migraine cocktail, get basic labs, and reassess. 2:[address] scan results have returned there is no evidence of acute intracranial process per Dr. Estrada. After the migraine cocktail the patient had complete resolution of his symptoms. He has no visual complaints whatsoever, and his headache is gone. On reassessment of the historical component, it appears that the visual murray were wildly variant. At one point it was the right side of his vision in his left eye at another point it was the left, one time it was top and one time it was the bottom. 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 Especially with his resolution after migraine cocktail. I discussed with the patient overnight admission, MRI, neurology consult and at this time understanding the risks and benefits, the patient does feel comfortable going home and would like to go home. We will schedule outpatient neurology follow-up, and we have made it very clear that if he has any return of his symptoms he needs to come back immediately for reassessment. We will give Imitrex for home use, he has no cardiac disease, history of cardiac disease or smoking. We discussed red flags which to return, the risks and benefits of discharge versus admission, and the patient understands and is of sound mind. Additionally repeat neurologic exam prior to discharge demonstrates no significant abnormalities. I have extensively reviewed the treatment plan and discharge instructions with the patient. I have addressed all patient concerns at this time. The patient was made aware of what symptoms to monitor for that would warrant a return to the emergency department. Discussed the plan with the patient, they demonstrate verbal understanding and agreement with our assessment and plan at this time. Ocular US Exam type: diagnostic\par Indication for exam: vision complaint Views obtained: Eye transverse and longitudinal Findings and interpretations: all views were adequate. Retinal contour was normal. Vitreous body was anechoic. Lens was well positioned. No evidence of lens dislocation or retinal detachment. Optic nerve was measured and found to be less than 5mm. The patient tolerated the procedure well and there were no complications. EKG 11: 09 Rate 45, LA 214, QTc 382, QRS 90, sinus bradycardia, no significant ST elevations or depression. Inverted T wave in lead III which is chronic, flattened T wave in V2, which appears slightly new from 08/05/2018. No evidence of STEMI. HPI General Date/Time Provider Initiated Documentation: 08/11/18 10:56 . HPI Narrative: This is a pleasant 48-year-old male with a past medical history of notable gastric ulcers for which he is medicated, as well as a history of occasional migraine headaches, who presents today for intermittent left-sided vision loss. The patient states that over the last 2 to 3 days he has had transient loss of vision in his left eye. He would describe it as large black spots, that completely off his gait most of his vision in his left eye. He has associated pain with this, which she describes as an achy-like sensation and pressure behind his eye.. The episodes last 1 to 2 minutes and then completely resolved. When they occur the pain is made worse with light. He denies any worsening of his symptoms with movement. They relieve on their own spontaneously. He did see optometry yesterday and again today, yesterday he had normal macula, normal retinal contour, normal pressures, no evidence of any abnormality, no signs of iritis. He returned again today because of his continued symptoms, optometry again noted normal pressures, and normal exam without abnormality. They sent him over here for further evaluation. The patient does admit to having an episode like this a few years ago, it resolved on his own, with no subsequent abnormalities. He denies any trauma, history of autoimmune disease, history of lupus, stroke, or [place]. He has no history of high cholesterol or diabetes. No other modifying factors. Related Data Home Medications Medication Instructions Recorded Confirmed omeprazole 40 mg PO BID #60 tab-cap 06/09/17 08/11/18 aspirin 81 mg PO DAILY 08/04/18 08/11/18 dicyclomine 20 mg PO QID PRN #10 tab 08/04/18 08/11/18 ranitidine HCl 300 mg PO QHS #60 cap 08/05/18 08/11/18 sucralfate [Carafate] 10 ml PO QID #420 ml 08/05/18 08/11/18 sumatriptan succinate [Imitrex] 25 mg PO ONCE #10 tab 08/11/18 Previous Rx's Medication Instructions Recorded omeprazole 40 mg PO BID #60 tab-cap 06/09/17 dicyclomine 20 mg PO QID PRN #10 tab 08/04/18 ranitidine HCl 300 mg PO QHS #60 cap 08/05/18 sucralfate [Carafate] 10 ml PO QID #420 ml 08/05/18 sumatriptan succinate [Imitrex] 25 mg PO ONCE #10 tab 08/11/18 Allergies Allergy/AdvReac Type Severity Reaction Status Date / Time No Known Allergies Allergy Unverified 08/11/18 10:38 General Stated Complaint: Headache NEELIMA: 2 Review of Systems Review of Systems All systems reviewed & are unremarkable except as noted in HPI and below PFSH Medical History Diverticulitis Family History Grandfather No problems noted. Social History Smoking/Tobacco Use Status: Never Alcohol Intake: current Alcohol Intake frequency: a few times a week Drug use: Occasionally Substance use type: marijuana Do you feel safe at home: Yes Do you feel safe in your relationship?: Yes Exam Narrative Exam Narrative: 1.Const: Well-nourished, Well-developed, appearing stated age 2.Eyes: PERRL, no conjunctival injection, and symmetrical lids. Left eye: EOMI, PERRL, Peripheral vision intact. No nystagmus. Fundoscopic exam shows normal optic discs and normal vasculature. No external signs of preseptal cellulitis, no redness around the eye, no proptosis. No hyphema, no signs of trauma around the eye, no periorbital emphysema. Visual acuity as documented in chart. No tenderness over the left temporal artery. 3.ENT: Atraumatic external nose and ears. Moist MM. Neck: Symmetric, trachea midline, No thyromegaly. 4.CVS: +S1/S2, No murmurs or gallops. Peripheral pulses 2+ and equal in all extremities. Brisk capillary refill in all extremities. 5.RESP: Unlabored respiratory effort. Clear to auscultation bilaterally. No wheezes rales or rhonchi 6.GI: Soft, Nontender/Nondistended, No hepatosplenomegaly. No guarding or rebound. 7.MSK: Normocephalic/Atraumatic, Extremities w/o deformity or ttp No cyanosis or clubbing, Normal movement of all extremities 8.Skin: Warm, Dry. No rashes or lesions. 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 Sensation grossly intact, no focal neurologic deficits. All 6 cardinal planes of vision are fully intact. No evidence of rotatory or vertical nystagmus. The patient demonstrated a normal [id number], good dexterity. There was no evidence of dysdiadochokinesia. Patient was able to ambulate without difficulty. There was no wide-based gait. Romberg, and [id number] are both normal on testing. Sensation was intact bilaterally as well as muscle strength bilaterally for all extremities. Patient was able to verbalize butter cup with no slurring, or miss pronunciation. 10.Psych: (AAO) x3. Appropriate mood and affect Course Vital Signs Temperature 36.5 C 08/11/18 10:34 Pulse 53 L 08/11/18 10:34 Respiratory Rate 12 08/11/18 10:34 Blood Pressure 164/98 H 08/11/18 10:34 Pulse Oximetry 96 08/11/18 10:34 Temperature 36.5 C 08/11/18 10:34 Temperature Source Temporal Artery Scan 08/11/18 10:34 Pulse 53 L 08/11/18 10:34 Respiratory Rate 12 08/11/18 10:34 Respiratory Effort Non-Labored 08/11/18 10:37 Blood Pressure 164/98 H 08/11/18 10:34 Blood Pressure Position Supine 08/11/18 10:34 Pulse Oximetry 96 08/11/18 10:34 Oxygen Delivery Method Room Air 08/11/18 10:34 Oxygen Flow Rate 0 08/11/18 10:34 Pain Level 9 08/11/18 10:34 Comment 08/11/18 10:34 Lab/Test Results Lab/Test Results: Laboratory Tests Range/Units 08/11/18 10:46 WBC (4.4-10.8) k/cumm 5.77 RBC (4.50-6.00) m/cumm 5.07 Hgb (13.5-17.5) g/dL 15.7 Hct (40.0-50.0) % 43.0 MCV (80-95) fL 84.8 MCH (27.0-33.0) pg 31.0 MCHC (32.0-36.0) g/dL 36.5 H RDW (11.8-14.1) % 12.6 Plt Count (130-400) x1000/uL 224 MPV (8.0-11.0) fL 9.4 Immature Gran % 1.0 Neutrophils % 40.6 Lymphocytes % 46.8 Monocytes % 6.6 Eosinophils % 3.6 Basophils % 1.4 Absolute Neutrophils (1.2-6.7) k/cumm 2.34 Absolute Lymphocytes (1.2-3.4) k/cumm 2.70 Absolute Monocytes (0.11-0.7) k/cumm 0.38 Absolute Eosinophils (0.0-0.7) k/cumm 0.21 Absolute Basophils (0.0-0.2) k/cumm 0.08
[2018-08-11 11:32] LABS: ALT 27 U/L (12-78); AST 14 U/L (15-37); Albumin 3.8 g/dL (3.4-5.0); Alkaline Phosphatase 99 U/L (46-116); Anion Gap 9.5 mmol/L (3-11); BUN 14 mg/dL (7-18); Bilirubin, Total 0.4 mg/dL (0.2-1.0); CO2 25.5 mmol/L (21.0-32.0); CREATININE 1.16 mg/dL (0.70-1.30); Calcium 8.6 mg/dL (8.5-10.1); Chloride 105 mmol/L (98-107); Glucose 96 mg/dL (70-100); Potassium 3.8 mmol/L (3.5-5.1); Sodium 140 mmol/L (136-145)
[2018-08-11 11:39] LABS: C-Reactive Protein 0.13 mg/dL (0.0-0.3)
[2018-08-11 11:59] LABS: ESR 4 MM/HR (0-15)
[2018-08-11] MEDS: methylPREDNISolone SUCC 125 MG VIAL IVP (12:51)
[2018-08-11] MEDS: Ketorolac 15 MG/ML VIAL IVP (12:51)
[2018-08-11 14:42] VITALS: BP 161/100; PULSE 47; RESP 16; TEMP 36.5; O2SAT 95
--- NOTE | 2018-08-12 08:10 | CMPROGNOTE_ITS ---
Care Management Progress Note 08/12-Dr Salazar requested assistance with a neurology consult within one month for complex optic migraine. Referral faxed to [facility] Neurology this am.
== END 2018-08-11 14:18 | disposition home or self-care (01) ==
PROVIDERS: Emergency Provider Student in an Organized Health Care Education/Training Program; PCP Nurse Practitioner Family
DX: G43.B0 Ophthalmoplegic migraine, not intractable (principal)
CPT/HCPCS: 80053; 85652; 93005; 99284; 70450; 85025; 86140; 93010; J0780; J1200; J1885; J2930

== ENCOUNTER 2018-09-06 07:00 | Emergency (ER) | payer MEDICAID, SELFPAY ==
[2018-09-06 07:03] VITALS: BP 142/93; PULSE 64; RESP 20; TEMP 36.7; O2SAT 96
--- NOTE | 2018-09-06 07:32 | W.ED.GENAD ---
Discharge Plan Disposition Patient Disposition: HOME Condition: Good Discharge Details Chief Complaint: Cellulitis Clinical Impression: Subungual foreign body of finger Primary Care Provider: Nanci Spivey ED Provider: Gian Salazar Home Meds and New Rx's Prescriptions: New cephalexin [Keflex] 500 mg capsule 500 mg PO QID 7 Days Qty: 28 RF: 0 No Action sumatriptan succinate [Imitrex] 25 mg tablet 25 mg PO ONCE Qty: 10 RF: 0 omeprazole 40 MG capsule,delayed release(DR/EC) 40 mg PO DAILY RF: 0 sucralfate [Carafate] 100 mg/mL suspension 10 ml PO QID Qty: 420 RF: 2 Discharge Instructions Instructions: Cellulitis (ED) Additional Instructions: There is a small amount of infection in your fingertip. Please take the antibiotic as directed. Please wash the fingertip and continue to apply triple antibiotic ointment 2-3 times daily. If you notice any continuing redness, worsening of the redness, spreading, worsening pain, please return immediately for reassessment. Referrals: Nanci Spivey [Primary Care Provider] - Medical Decision Making This is a pleasant 48-year-old male who states that his tetanus is up-to-date presents with complaint of pain under the fingernail of his middle finger on his right hand. He was taking Imdur yesterday which led to a notable amount of dirt going fairly deep under the nail. Currently there is dirt roughly 1 cm back under the nail causing notable pain. There is mild redness in the finger itself. Symptoms are concerning for foreign body under the nail, with mild associated infection. We will perform a digital block, and remove said debris. I do feel that the patient would benefit from a course of antibiotics for improvement of the infection. 8 AM Patient's finger was numbed with 10 cc of a 50-50 mixture of lidocaine with Pinnacaine. Patient tolerated this well, small aspect of the distal tip of his nail was removed, and all debris was removed from underneath the nail. Small splinter was also removed from the pulp aspect of his fingertip. He tolerated all this very well. It was then bandaged after triple antibiotic application. Patient tolerated this well. He will be discharged home. We are unable to find his tetanus status but he assures us that it is up-to-date. He is refusing tetanus shot at this time. I have extensively reviewed the treatment plan and discharge instructions with the patient. I have addressed all patient concerns at this time. The patient was made aware of what symptoms to monitor for that would warrant a return to the emergency department. Discussed the plan with the patient, they demonstrate verbal understanding and agreement with our assessment and plan at this time. HPI General Date/Time Provider Initiated Documentation: 09/06/18 07:15. HPI Narrative: This is a pleasant 48-year-old male who presents today with pain under the fingernail of his middle finger in his right hand. 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 He tried to get it out yesterday however he was unable to get deep enough. Since then he has had notable worsening of his pain, subsequent swelling. He is concerned for infection. He denies any IV or illicit drug use, any trauma, or any other associated complaints. He denies any numbness or tingling. Related Data Home Medications Medication Instructions Recorded Confirmed sucralfate [Carafate] 10 ml PO QID #420 ml 08/05/18 09/06/18 sumatriptan succinate [Imitrex] 25 mg PO ONCE #10 tab 08/11/18 09/06/18 cephalexin [Keflex] 500 mg PO QID 7 Days #28 cap 09/06/18 omeprazole 40 mg PO DAILY 09/06/18 09/06/18 Previous Rx's Medication Instructions Recorded sucralfate [Carafate] 10 ml PO QID #420 ml 08/05/18 sumatriptan succinate [Imitrex] 25 mg PO ONCE #10 tab 08/11/18 cephalexin [Keflex] 500 mg PO QID 7 Days #28 cap 09/06/18 Allergies Allergy/AdvReac Type Severity Reaction Status Date / Time No Known Allergies Allergy Unverified 08/11/18 10:38 General Stated Complaint: Cellulitis NEELIMA: 4 Review of Systems Review of Systems All systems reviewed & are unremarkable except as noted in HPI and below PFSH Medical History Diverticulitis Family History Grandfather No problems noted. Social History Smoking/Tobacco Use Status: Never Alcohol Intake: current Alcohol Intake frequency: a few times a week Drug use: Occasionally Substance use type: marijuana Do you feel safe at home: Yes Do you feel safe in your relationship?: Yes Exam Narrative Exam Narrative: 1.Const: Well-nourished, Well-developed, appearing stated age 2.Eyes: PERRL, no conjunctival injection, and symmetrical lids. 3.ENT: Atraumatic external nose and ears. Moist MM. Neck: Symmetric, trachea midline, No thyromegaly. 4.CVS: +S1/S2, No murmurs or gallops. Peripheral pulses 2+ and equal in all extremities. Brisk capillary refill in all extremities. 5.RESP: Unlabored respiratory effort. Clear to auscultation bilaterally. No wheezes rales or rhonchi 6.GI: Soft, Nontender/Nondistended, No hepatosplenomegaly. No guarding or rebound. 7.MSK: Normocephalic/Atraumatic, Extremities w/o deformity or ttp No cyanosis or clubbing, Normal movement of all extremities. Finger nail of the middle finger on the right hand demonstrates a mild to moderate amount of dirt extending roughly 1 cm under the nail in the central aspect. There is notable redness, tenderness to palpation of the distal fingertip because of this. No subungual hematoma. 8.Skin: Warm, Dry. No rashes or lesions. 9.Neuro: siding mechanic II-XII grossly intact. Sensation grossly intact, no focal neurologic deficits. 10.Psych: (AAO) x3. Appropriate mood and affect Course Vital Signs Temperature 36.7 C 09/06/18 07:03 Pulse 64 09/06/18 07:03 Respiratory Rate 20 09/06/18 07:03 Blood Pressure 142/93 H 09/06/18 07:03 Pulse Oximetry 96 09/06/18 07:03 Temperature 36.7 C 09/06/18 07:03 Temperature Source Skin 09/06/18 07:03 Pulse 64 09/06/18 07:03 Respiratory Rate 20 09/06/18 07:03 Respiratory Effort 09/06/18 07:06 Blood Pressure 142/93 H 09/06/18 07:03 Blood Pressure Position Sitting 09/06/18 07:03 Pulse Oximetry 96 09/06/18 07:03 Oxygen Delivery Method Room Air 09/06/18 07:03 Oxygen Flow Rate 0 09/06/18 07:03 Pain Level 8 09/06/18 07:03
== END 2018-09-06 07:59 | disposition home or self-care (01) ==
PROVIDERS: Emergency Provider Student in an Organized Health Care Education/Training Program; PCP Nurse Practitioner Family
DX: S60.452A Superficial foreign body of right middle finger, initial encounter (principal); L03.113 Cellulitis of right upper limb; X58.XXXA Exposure to other specified factors, initial encounter
CPT/HCPCS: 64450; 99283

== ENCOUNTER 2018-11-08 20:09 | Emergency (ER) | payer MEDICAID, SELFPAY ==
[2018-11-08 20:13] VITALS: BP 141/93; PULSE 71; RESP 18; TEMP 36.7; O2SAT 94
--- NOTE | 2018-11-08 20:26 | ED.GENADUL_ITS ---
Discharge Plan Disposition Patient Disposition: HOME Condition: Improving Discharge Details Chief Complaint: Abd Prob Clinical Impression: Abdominal pain Primary Care Provider: Nanci Spivey ED Provider: Rafael Almanza Home Meds and New Rx's Prescriptions: New amoxicillin-pot clavulanate 875-125 mg tablet 1 tab PO BID 10 Days Qty: 20 RF: 0 Continued sumatriptan succinate [Imitrex] 25 mg tablet 25 mg PO ONCE Qty: 10 RF: 0 omeprazole 40 MG capsule,delayed release(DR/EC) 40 mg PO DAILY RF: 0 Discharge Instructions Instructions: Abdominal Pain (ED) Additional Instructions: Home to rest this evening. Small, frequent sips of fluids to maintain hydration. As we discussed, we will begin a course of Augmentin. I recommend you take an [id number] probiotic once daily in the middle of the day while on the antibiotic. Follow-up with Nanci Arriaga if not improving in 3 to 5 days time. Return to the emergency department if develop progressive or worsening pain, abdominal distention, fever, or any other acute concern Medical Decision Making 48-year-old male presents from home with 3 to 4 days of progressive, constant predominantly right-sided abdominal pain that is worse with eating and worse with movement. He does have history of diverticulitis. Status post appendectomy. He is afebrile with essentially normal vital signs, and exam that reveals significant right-sided abdominal tenderness with mild rebound. Differential diagnosis includes diverticulitis, colitis, biliary colic or cholecystitis. IV placed, labs obtained, patient given fluids, parenteral medications. He is improving. Diagnostics: CBC with white count 7, hematocrit 43, platelets 236. Chemistries notable for BUN of 23, creatinine 1.1, glucose 116, normal LFTs with exception of slightly elevated AST of 86. Troponin negative. Lipase is normal. UA: Unremarkable. CT scan of the abdomen pelvis read as no significant acute findings. His presentation is suspicious for smoldering diverticulitis without radiographic findings. I discussed this with the patient and his at the bedside. We will start a course of Augmentin, single therapy for presumptive diverticulitis. He will follow-up with regular doctor if not improving in 3 to 5 days time. They understand return precautions to the ED Lab Data Lab results reviewed: Yes I reviewed the patient's lab results. Laboratory Results - last 24 hr 11/08/18 11/08/18 20:27 20:27 WBC 7.04 RBC 5.03 Hgb 15.6 Hct 43.1 MCV 85.7 MCH 31.0 MCHC 36.2 H RDW 12.5 Plt Count 236 MPV 9.8 Immature Gran % 0.6 Neutrophils % 44.8 Lymphocytes % 42.2 Monocytes % 8.1 Eosinophils % 3.3 Basophils % 1.0 Absolute Neutrophils 3.16 Absolute Lymphocytes 2.97 Absolute Monocytes 0.57 Absolute Eosinophils 0.23 Absolute Basophils 0.07 Sodium 141 Potassium 3.7 Chloride 106 Carbon Dioxide 23.2 Anion Gap 11.8 H BUN 23 H Creatinine 1.19 Estimated GFR/1.73 m2 >= 60.00 Glucose 116 H Calcium 8.5 Magnesium 1.9 Total Bilirubin 0.4 AST 86 H ALT 61 Alkaline Phosphatase 110 Total Protein 7.1 Albumin 3.8 Lipase 105 ECG Data Attestation: I personally reviewed and interpreted this ECG (s) as follows: Interpretation: Sinus bradycardia, rate 54, the QRS is narrow, there is discrete J-point elevation present in leads I and aVL. No acute ST segment elevation. HPI General Mode of arrival: ambulatory . Date/Time Provider Initiated Documentation: 11/08/18 20:10 . Limitations to Documentation: no limitations . Information obtained by: patient and family . History of Present Illness 48 year old M presents to the emergency department with the chief complaint of Right-sided abdominal pain, described as moderate, Quality is described as dull, and is localized to the abdomen and right. Patient started experiencing this day(s) and it has been constant. Rest improves symptom(s), Eating worsens symptoms and Movement worsens symptoms . Patient notes fever/chills and loss of appetite; denies chest pain. Patient did receive the following treatments prior to arrival, none Related Data Home Medications Medication Instructions Recorded Confirmed sumatriptan succinate [Imitrex] 25 mg PO ONCE #10 tab 08/11/18 11/08/18 omeprazole 40 mg PO DAILY 09/06/18 11/08/18 amoxicillin-pot clavulanate 1 tab PO BID 10 Days #20 tab 11/08/18 Previous Rx's Medication Instructions Recorded sumatriptan succinate [Imitrex] 25 mg PO ONCE #10 tab 08/11/18 amoxicillin-pot clavulanate 1 tab PO BID 10 Days #20 tab 11/08/18 Allergies Allergy/AdvReac Type Severity Reaction Status Date / Time No Known Allergies Allergy Unverified 11/08/18 20:16 General Stated Complaint: Abd Prob NEELIMA: 3 Review of Systems Review of Systems Watery stool, fever and chills, nauseated. No vomiting. Recently well. No travel. 8 systems reviewed and otherwise negative [facility] Medical History Depression (Chronic) Diverticulitis GERD (gastroesophageal reflux disease) (Chronic) Surgical History Appendectomy Colonoscopy - MAC (05/13/17) EGD - MAC (05/13/17) wrist surgery Family History Grandfather No problems noted. Social History Smoking/Tobacco Use Status: Never Alcohol Intake: current Alcohol Intake frequency: a few times a week Drug use: Occasionally Substance use type: marijuana Do you feel safe at home: Yes Do you feel safe in your relationship?: Yes Exam Narrative Exam Narrative: GEN: awake, alert, oriented 3. Pleasant, well groomed, interact carmelita. HEAD: Normocephalic, atraumatic ENT: Mucous membranes moist, oropharynx unremarkable, External ear exam unremarkable EYES: PERRL, EOMI NECK: Full ROM, no NATY, no menigismus CHEST/RESP: Nontender, clear to auscultation bilateral, no wheeze/rhonchi/rales CARDIOVASCULAR: RRR, no murmur, rub dudley. 2+ Rad pulse bilateral ABDOMEN: Soft, tender in the right upper and lower quadrants with mild rebound, no mass. +Bowel sounds, diminished EXT: Full ROM, no edema, no rash Neuro: Grossly normal neurologic exam, conversant, interactive. Psych: Speech fluent, thoughts congruent, affect normal Course Vital Signs Temperature 36.7 C 11/08/18 20:13 Pulse 71 11/08/18 20:13 Respiratory Rate 18 11/08/18 20:13 Blood Pressure 141/93 H 11/08/18 20:13 Pulse Oximetry 94 L 11/08/18 20:13 Temperature 36.7 C 11/08/18 20:13 Temperature Source Skin 11/08/18 20:13 Pulse 71 11/08/18 20:13 Respiratory Rate 18 11/08/18 20:13 Blood Pressure 141/93 H 11/08/18 20:13 Pulse Oximetry 94 L 11/08/18 20:13 Pain Level 8 11/08/18 20:13
[2018-11-08] MEDS: Normal Saline 1,000 ML 1000 ML IV (20:35)
[2018-11-08] MEDS: HYDROmorphone 2 MG/ML VIAL 0.5 MG IVP (20:37)
[2018-11-08] MEDS: Ondansetron 4 MG/2 ML VIAL IVP (20:37)
[2018-11-08 20:39] LABS: Abs Immature Grans 0.04 k/cumm (0.0-0.09); Absolute Basophil Count 0.07 k/cumm (0.0-0.2); Absolute Eosinophil Count 0.23 k/cumm (0.0-0.7); Absolute Lymphocyte Count 2.97 k/cumm (1.2-3.4); Absolute Monocyte Count 0.57 k/cumm (0.11-0.7); Absolute Neutrophil Count 3.16 k/cumm (1.2-6.7); Eosinophils % 3.3; HCT 43.1 % (40.0-50.0); HGB 15.6 g/dL (13.5-17.5); Immature Grans % 0.6; Lymphocytes % 42.2; Mean Corp. HGB Concentration 36.2 g/dL (32.0-36.0); Mean Corpuscular Volume 85.7 fL (80-95); Mean Platelet Volume 9.8 fL (8.0-11.0); Monocytes % 8.1; Neutrophils % 44.8; Platelet Count 236 x1000/uL (130-400); RBC 5.03 m/cumm (4.50-6.00); RBC Distribution Width 12.5 % (11.8-14.1); White Blood Cell Count 7.04 k/cumm (4.4-10.8)
[2018-11-08 21:00] LABS: ALT 61 U/L (12-78); AST 86 U/L (15-37); Albumin 3.8 g/dL (3.4-5.0); Alkaline Phosphatase 110 U/L (46-116); Anion Gap 11.8 mmol/L (3-11); BUN 23 mg/dL (7-18); Bilirubin, Total 0.4 mg/dL (0.2-1.0); CO2 23.2 mmol/L (21.0-32.0); CREATININE 1.19 mg/dL (0.70-1.30); Calcium 8.5 mg/dL (8.5-10.1); Chloride 106 mmol/L (98-107); Glucose 116 mg/dL (70-100); Lipase 105 U/L (73-393); Magnesium 1.9 mg/dL (1.8-2.4); Potassium 3.7 mmol/L (3.5-5.1); Sodium 141 mmol/L (136-145); Total Protein 7.1 g/dL (6.4-8.2)
[2018-11-08] MEDS: Omnipaque 350 MG/ML 100 ML BTL IJ (21:01)
--- NOTE | 2018-11-08 21:05 | DI.CT_ITS ---
SYMPTOM/DIAGNOSIS: RT SIDED ABD PAIN, PREV H/O DIVERTICULITIS ABDOMINAL AND PELVIC CT: 11/08 CT examination of the abdomen and pelvis was performed with a bolus infusion of 100 cc Omnipaque 350. Note is made of two nodules at the left lung base, these measure about 7 and 6 mm in mean diameter respectively. These have been present on previous CT examinations dating back to Jan 2016. These appear stable. Liver, spleen and pancreas appear normal. Gallbladder and bile ducts are CT normal. Adrenals and kidneys are unremarkable in appearance except for small bilateral renal presumed cysts. No evidence of hydronephrosis or nephrolithiasis. Abdominal aorta is of normal diameter and no major vascular abnormalities seen. No significant abdominal wall hernia seen. Appendix appears to have been surgically removed. No evidence of diverticulitis or bowel obstruction. No abdominal or pelvic adenopathy. CONCLUSION: No evidence of acute intra-abdominal process.
[2018-11-08] MEDS: HYDROmorphone 2 MG/ML VIAL 1 MG IVP (21:24)
[2018-11-08 21:27] VITALS: BP 134/77; PULSE 53; RESP 16; O2SAT 95
--- NOTE | 2018-11-08 21:46 | DI.VRAD_ITS ---
Addendum created by Deuce Novak DO on 11/08/2018 9:57:14 PM EDT 7 mm nodule in left lung base. Pseudo-CT is recommended in 6-12 months if at low risk and at 3-6 months if at high risk for development of lung cancer. Initial report created on 11/08/2018 9:46:17 PM EDT EXAM: CT Abdomen and Pelvis With Contrast EXAM DATE/TIME: 11/08/2018 8:26 PM CLINICAL HISTORY: 48 years old, male; Abdominal pain; Generalized; Prior surgery; Surgery date: 6+ months; Surgery type: Appendectomy; Patient HX: Abdominal mostly pain in ruq but also mid abdomen; Additional info: Nausea, watery stool, prev HX of diverticulitis TECHNIQUE: Imaging protocol: Axial computed tomography images of the abdomen and pelvis with intravenous contrast. Coronal and sagittal reformatted images were created and reviewed. Radiation optimization: All CT scans at this facility use at least one of these dose optimization techniques: automated exposure control; mA and/or kV adjustment per patient size (includes targeted exams where dose is matched to clinical indication); or iterative reconstruction. Contrast material: OMNIPAQUE 350;Contrast volume: 100 ml;Contrast route: IV RAC; COMPARISON: CT ABDOMEN PELVIS W 08/04/2018 6:32 AM FINDINGS: Lungs: There is minimal bibasilar atelectasis. 7 mm, average diameter subpleural nodule left lung base. Liver: Normal. No mass. Gallbladder and bile ducts: Normal. No calcified stones. No ductal dilation. Pancreas: Normal. No ductal dilation. Spleen: Normal. No splenomegaly. Adrenals: Normal. No mass. Kidneys and ureters: Simple cyst right kidney. Stomach and bowel: Colonic diverticula. No obstruction. Appendix: No appendix demonstrated. Intraperitoneal space: Normal. No free air. No significant fluid collection. Vasculature: Normal. No abdominal aortic aneurysm. Lymph nodes: Normal. No enlarged lymph nodes. Bladder: Unremarkable as visualized. Reproductive: Unremarkable as visualized. Bones/joints: No acute fracture. No dislocation. Soft tissues: Unremarkable. IMPRESSION: No acute findings. Dictated and Authenticated by: Deuce Novak MD. Ordering:CARY Hall MD
[2018-11-08 22:12] VITALS: BP 125/72; PULSE 55; RESP 16; O2SAT 94
[2018-11-08 22:38] LABS: Troponin I < 0.05 ng/mL (0.00-0.06)
[2018-11-08 23:04] LABS: Bilirubin Negative (Negative); Blood Small (Negative); Clarity Clear (Clear); Glucose Negative (Negative); Ketones Negative (Negative); Leukocyte Esterase Negative (Negative); Nitrite Negative (Negative); Urobilinogen 0.2 EU/dL (Up TO 0.2)
[2018-11-08 23:10] LABS: Bacteria Rare HPF (Negative); C & S Indicated? No; Casts Negative LPF (Negative); Crystals Negative HPF (Negative); Epithelial Cells Rare HPF (Negative); Mucus Negative (Negative); Other Cells Negative (Negative); WBC Negative HPF (0-5)
[2018-11-08 23:11] LABS: RBC 0-2 (0-2)
[2018-11-08 23:25] VITALS: BP 127/79; PULSE 57; RESP 16; O2SAT 97
[2018-11-08] MEDS: Amoxicillin 875/Clav. 125 TAB PO (23:25)
== END 2018-11-08 23:30 | disposition home or self-care (01) ==
PROVIDERS: Emergency Provider Emergency Medicine; PCP Nurse Practitioner Family
DX: R19.7 Diarrhea, unspecified (principal); R50.9 Fever, unspecified; R11.0 Nausea; R10.11 Right upper quadrant pain; R10.31 Right lower quadrant pain
CPT/HCPCS: 36415; 80053; 83690; 93005; 96361; 96374; 96375; 96376; 99285; 74177; 81003; 81015; 83735; 84484; 85025; 93010; 99284; J2405; J3490

== ENCOUNTER 2018-11-11 08:22 | Observation (INO) | payer MEDICAID, SELFPAY ==
[2018-11-11] VITALS (20 sets, daily range): BP systolic 110–153; BP diastolic 61–86; PULSE 53–80; RESP 14–20; TEMP 36–36.8; O2SAT 91–97
--- NOTE | 2018-11-11 08:37 | ED.GENADUL_ITS ---
Discharge Plan Discharge Details Chief Complaint: Abd Prob Primary Care Provider: Nanci Spivey ED Provider: Dung Valero Home Meds and New Rx's Prescriptions: No Action sumatriptan succinate [Imitrex] 25 mg tablet 25 mg PO ONCE Qty: 10 RF: 0 omeprazole 40 MG capsule,delayed release(DR/EC) 40 mg PO DAILY RF: 0 amoxicillin-pot clavulanate 875-125 mg tablet 1 tab PO BID 10 Days Qty: 20 RF: 0 Medical Decision Making 48 yo male with hx of prior appendectomy and was here in the ED on 11/08 and dx'd with likely diverticulitis with negative imaging and started on augment, comes in with acute worsening of pain along with onset of n/v today. Denies fevers, chest pain, dyspnea. Has diffuse pain in the abdomen and is tender most on exam in the lower quadrants, abdomen is not rigid. Pt does appear anxious on exam as well. Will obtain CTA to eval for possible ischemic bowel and obtain lipase and lfts and monitor. ct and labs unremarkable, he is sleeping when I enter the room but when I wake him up he states he still has severe pain and is localizes to the ruq. No evidence of cholelithiasis, cholecystitis on ct. Discussed other imaging we could do and after discussion will obtain u/s to evaluate for possible gallbladder disorders u/s also negative. still has quite a bit of pain and tender in the upper abdomen. Will consult surgery for assessment dr. conrad assessed and will admit for endoscopy Differential Diagnosis colitis, diverticulitis, pneumoperitoneum Imaging Data Radiologic Study: Attestation: I personally reviewed and interpreted this imaging study as follows: Imaging: CT Scan Radiologist's impression: no acute findings Radiologic Study #2: Attestation: I personally reviewed and interpreted this imaging study as follows: Imaging: Ultrasound Radiologist's impression: negative ultrasound Lab Data Lab results reviewed: Yes I reviewed the patient's lab results. HPI General Mode of arrival: ambulatory . Date/Time Provider Initiated Documentation: 11/11/18 08:24 . Limitations to Documentation: no limitations . Information obtained by: patient . History of Present Illness 48 year old M presents to the emergency department with the chief complaint of abdominal pain, described as moderate and severe, Quality is described as stabbing, and is localized to the abdomen. Patient reports no radiation. Patient started experiencing this day(s) (3) No relieving factors improve symptom(s), No exacerbating factors reported . Patient notes nausea/vomiting. Related Data Home Medications Medication Instructions Recorded Confirmed sumatriptan succinate [Imitrex] 25 mg PO ONCE #10 tab 08/11/18 11/08/18 omeprazole 40 mg PO DAILY 09/06/18 11/08/18 amoxicillin-pot clavulanate 1 tab PO BID 10 Days #20 tab 11/08/18 Previous Rx's Medication Instructions Recorded sumatriptan succinate [Imitrex] 25 mg PO ONCE #10 tab 08/11/18 amoxicillin-pot clavulanate 1 tab PO BID 10 Days #20 tab 11/08/18 Allergies Allergy/AdvReac Type Severity Reaction Status Date / Time No Known Allergies Allergy Unverified 11/08/18 20:16 General Stated Complaint: Abd Prob NEELIMA: 3 Review of Systems Review of Systems All systems reviewed & are unremarkable except as noted in HPI and below Constitutional Denies chills, Denies fever(s) and Denies weakness Cardiovascular Denies chest pain and Denies dyspnea Respiratory Denies cough and Denies dyspnea Genitourinary Denies dysuria Integumentary/Breasts Denies rash Neurologic Denies weakness [facility] Social History Smoking/Tobacco Use Status: Never Alcohol Intake: current Alcohol Intake frequency: a few times a week Drug use: Occasionally Substance use type: marijuana Do you feel safe at home: Yes Do you feel safe in your relationship?: Yes Exam Const General: anxious Orientation: alert HENMT Head: normal to inspection Ears: external ears normal General nose exam: external nose normal Mouth: moist mucous membranes Eyes General: appearance normal, both eyes and all related structures Neck Neck: normal visual inspection Resp Effort & Inspection: normal respiratory effort and able to speak in complete sentences Cardio Rate: regular rate GI Palpation: soft Skin General skin exam: no rashes or lesions noted Neuro General: alert and oriented x3 Extrem General: normal to inspection Psych Mental Status: mental status grossly normal Course Vital Signs Temperature 36.4 C L 11/11/18 08:25 Pulse 64 11/11/18 08:25 Respiratory Rate 20 11/11/18 08:25 Blood Pressure 153/74 H 11/11/18 08:25 Pulse Oximetry 95 11/11/18 08:25 Temperature 36.4 C L 11/11/18 08:25 Temperature Source Temporal Artery Scan 11/11/18 08:25 Pulse 64 11/11/18 08:25 Respiratory Rate 20 11/11/18 08:25 Respiratory Effort Non-Labored 11/11/18 08:26 Blood Pressure 153/74 H 11/11/18 08:25 Pulse Oximetry 95 11/11/18 08:25 Pain Level 9 11/11/18 08:26
[2018-11-11] MEDS: Normal Saline 1,000 ML 1000 ML IV (08:46)
[2018-11-11] MEDS: Ondansetron 4 MG/2 ML VIAL IVP ×3 (08:46→21:09)
[2018-11-11] MEDS: Ketorolac 15 MG/ML VIAL IVP (08:46)
[2018-11-11] MEDS: LORazepam 2 MG/ML VIAL 1 MG IVP (08:46)
[2018-11-11 08:48] LABS: Lactate 1.2 mmol/L (0.6-1.4)
[2018-11-11 08:56] LABS: Abs Immature Grans 0.04 k/cumm (0.0-0.09); Absolute Basophil Count 0.11 k/cumm (0.0-0.2); Absolute Eosinophil Count 0.25 k/cumm (0.0-0.7); Absolute Lymphocyte Count 2.22 k/cumm (1.2-3.4); Absolute Monocyte Count 0.54 k/cumm (0.11-0.7); Absolute Neutrophil Count 3.42 k/cumm (1.2-6.7); Basophils % 1.7; Eosinophils % 3.8; HCT 47.1 % (40.0-50.0); Immature Grans % 0.6; Lymphocytes % 33.7; Mean Corp. HGB Concentration 36.1 g/dL (32.0-36.0); Mean Corpuscular Hemoglobin 30.5 pg (27.0-33.0); Mean Corpuscular Volume 84.6 fL (80-95); Mean Platelet Volume 9.8 fL (8.0-11.0); Monocytes % 8.2; Platelet Count 264 x1000/uL (130-400); RBC 5.57 m/cumm (4.50-6.00); RBC Distribution Width 12.6 % (11.8-14.1); White Blood Cell Count 6.58 k/cumm (4.4-10.8)
[2018-11-11 09:21] LABS: ALT 53 U/L (12-78); AST 54 U/L (15-37); Albumin 4.1 g/dL (3.4-5.0); Alkaline Phosphatase 96 U/L (46-116); Anion Gap 13.6 mmol/L (3-11); BUN 20 mg/dL (7-18); Bilirubin, Total 0.7 mg/dL (0.2-1.0); CO2 21.4 mmol/L (21.0-32.0); CREATININE 1.21 mg/dL (0.70-1.30); Calcium 9.1 mg/dL (8.5-10.1); Chloride 104 mmol/L (98-107); Glucose 119 mg/dL (70-100); Lipase 149 U/L (73-393); Potassium 3.6 mmol/L (3.5-5.1); Sodium 139 mmol/L (136-145); Total Protein 7.6 g/dL (6.4-8.2)
[2018-11-11 09:24] LABS: Bilirubin, Total 0.7 mg/dL (0.2-1.0)
[2018-11-11] MEDS: Omnipaque 350 MG/ML 100 ML BTL IJ (09:36)
[2018-11-11] MEDS: Omnipaque 350 MG/ML 50 ML BTL IJ (09:38)
--- NOTE | 2018-11-11 09:39 | DI.CT_ITS ---
SYMPTOMS/DIAGNOSIS: ACUTE SEVERE ABD PAIN, ? MESENTERIC ISCHEMIA CTA OF THE ABDOMEN AND PELVIS: CT angiography was performed with multi slice acquisition and multi planar and 3D reconstruction. Comparison is made with standard abdomen and pelvic CT of [id number]. There is no evidence of vascular occlusion, stenosis or atherosclerotic change. The vessels are normal in diameter throughout. There is no evidence of mesenteric ischemia. The heart size appears normal. There is a nodule at the left lung base which appears stable when compared with exams back to 2012. The liver, gallbladder, spleen, pancreas and adrenals are unremarkable. A cyst is again noted laterally in the right kidney. There is no bowel dilatation or wall thickening. The patient is status post appendectomy. There are diverticula in the sigmoid colon but no evidence of diverticulitis. The bladder and prostate are unremarkable. IMPRESSION: Negative CT angiography of the abdomen and pelvis. No vascular abnormality or significant atherosclerosis is present. There is no evidence of mesenteric ischemia or other acute abnormality.
--- NOTE | 2018-11-11 10:21 | DI.US_ITS ---
SYMPTOMS/DIAGNOSIS: RIGHT UPPER ABDOMINAL PAIN, LIMITED RIGHT UPPER QUADRANT RIGHT UPPER QUADRANT ULTRASOUND: Comparison is made with CT performed earlier the same day. The liver is normal in size and echogenicity. No biliary dilatation is seen. The gallbladder has a normal appearance. There is no abnormal gallbladder distention, wall thickening or evidence of stones. The right kidney shows a 2 cm cyst laterally. No hydronephrosis is seen. There is no right upper quadrant fluid. The pancreas is unremarkable as visualized. The aorta is normal in diameter. IMPRESSION: Negative right upper quadrant ultrasound.
[2018-11-11] MEDS: fentaNYL 100 MCG/2 ML VIAL 50 MCG IVP (12:19)
--- NOTE | 2018-11-11 13:00 | HPE_ITS ---
Date of service: 11/11/18 Time of Service: 13:02 Assessment and Plan (1) Hiatal hernia: Current visit: Yes Status: Chronic (2) Elevated LFTs: Current visit: Yes Status: Acute (3) GERD (gastroesophageal reflux disease): Current visit: No Status: Acute (4) Chronic abdominal pain: Current visit: No Status: Chronic (5) Rectal arterial hemorrhage: Current visit: Yes Status: Acute (6) Acute abdominal pain in right upper quadrant: Current visit: Yes Status: Acute will take pt for EGD risks: Bleeding infection perforation aspiration and complications of anesthesia. pt will be admitted for hydration/IV protonix & carafate therapy/pain management/ HIDA w/ CCK in am. History of Present Illness Chief Complaint: abdom pain and vomting Consults Consult date: 11/11/18 Requesting physician: Dugn Valero Narrative: pt was seen in ED friday w/RUQ pain and vomiting. He has not been vomiting blood says there is BR blood in his stools. for the past 24 hrs he has been vomting and not able to eat anything. no fever/chills. Stools have been diarrhea for the past week. Yes there were walsh. He has a hx of reflux (H/I) and has been well controlled on PPI. This has been long standing use. denies smoking. denies heavy ETOH use. He has actually been trying to eat more healthy adn exercise. He notes he has lost wt as pants are fitting better. He has an extensive family Hx of GB dx. He is not DM. He has been on augmentin for the past week. The pain has been progressing. Today it is his whole belly that is distended and painful. He can't say if its more in one specific area. He notes he feels very distended and bloated. He denies fever/chills. no FROM ED notes: 48 yo male with hx of prior appendectomy and was here in the ED on 11/08 and dx'd with likely diverticulitis with negative imaging and started on augment, comes in with acute worsening of pain along with onset of n/v today. Denies fevers, chest pain, dyspnea. Has diffuse pain in the abdomen and is tender most on exam in the lower quadrants, abdomen is not rigid. Pt does appear anxious on exam as well. Will obtain CTA to eval for possible ischemic bowel and obtain lipase and lfts and monitor. ct and labs unremarkable, he is sleeping when I enter the room but when I wake him up he states he still has severe pain and is localizes to the ruq. No evidence of cholelithiasis, cholecystitis on ct. Discussed other imaging we could do and after discussion will obtain u/s to evaluate for possible gallbladder disorders Review of Systems Review of Systems All systems reviewed & are unremarkable except as noted in HPI and below Constitutional Reports as per HPI, Reports system reviewed and no additional complaints, except as docu, Denies anorexia, Denies chills, Denies difficulty sleeping, Denies fatigue, Denies headache(s), Denies lethargy, Denies malaise, Denies poor appetite, Denies weakness, Denies weight gain and Denies weight loss Eyes Reports as per HPI, Reports system reviewed and no additional complaints, except as docu and Denies change in vision ENT Reports system reviewed and no additional complaints, except as docu, Reports as per HPI, Denies change in voice, Denies dental pain, Denies dysphagia, Denies dizziness, Denies facial pain, Denies headache(s) and Denies odynophagia Cardiovascular Reports as per HPI, Reports system reviewed and no additional complaints, except as docu, Denies chest pain, Denies chest pain with activity, Denies syncope, Denies leg edema and Denies dyspnea Respiratory Reports as per HPI, Reports system reviewed and no additional complaints, except as docu, Denies chest congestion, Denies cough, Denies pain with cough and Denies dyspnea Gastrointestinal Reports as per HPI, Reports system reviewed and no additional complaints, except as docu, Reports abdominal pain, Reports bloating, Denies change in bowel habit s, Reports change in stool character, Denies constipation, Reports cramping, Denies dysphagia, Denies early satiety, Denies heartburn, Reports diarrhea, Reports loose stools, Reports nausea, Denies odynophagia and Reports vomiting Comments: stools yest were lose and walsh. pt says they have been bloody- bright red. last friday pt was having RUQ pain and nausea. pt states he was having diarrhea prior to be started on the augment (which he has been on and taking since friday night). pt has done some lifestyle improvements and has been trying to lose wt and notes clothes are fitting looser. doesn't know an exact number. He has never had anything like this before. he does have a hx of diverticula. he was scoped in 2016. the divertic were very few/minor. CT scan was nl. Pt does have a hx of chronic abdominal pain /IBS as well. Genitourinary Reports system reviewed and no additional complaints, except as docu Musculoskeletal Reports system reviewed and no additional complaints, except as docu, Reports as per HPI, Denies abnormal gait, Denies arthralgias and Denies muscle weakness Integumentary/Breasts Reports system reviewed and no additional complaints, except as docu, Reports as per HPI, Denies changing lesions, Denies new lesions and Denies jaundice Neurologic Reports system reviewed and no additional complaints, except as docu, Reports as per HPI, Denies abnormal speech, Denies abnormal gait, Denies dizziness, Denies syncope, Denies headache(s), Denies memory loss and Denies weakness Psychiatric Reports system reviewed and no additional complaints, except as docu, Reports as per HPI, Denies change in appetite and Denies memory loss Endocrine Denies fatigue, Denies polydipsia and Denies polyuria Hematologic/Lymphatic Reports system reviewed and no additional complaints, except as docu, Denies easy bleeding and Denies easy bruising Allergic/Immunologic Denies system reviewed and no additional complaints, except as docu, Reports as per HPI and Denies urticaria PFSH Medical History (Updated 11/11/18 @ 14:29 by Frances Warner DO) Depression (Chronic) Diverticulitis Elevated LFTs (Acute) Gastric ulcer (Acute) GERD (gastroesophageal reflux disease) (Chronic) Hiatal hernia (Chronic) Surgical History Appendectomy Colonoscopy - MAC (05/13/17) EGD - MAC (05/13/17) wrist surgery Social History Smoking/Tobacco Use Status: Never Alcohol Intake: current Alcohol Intake frequency: a few times a week Drug use: Occasionally Substance use type: marijuana Do you feel safe at home: Yes Do you feel safe in your relationship?: Yes Meds Home Medications Medication Instructions Recorded Confirmed Type sumatriptan succinate [Imitrex] 25 mg PO ONCE #10 tab 08/11/18 11/08/18 Rx omeprazole 40 mg PO DAILY 09/06/18 11/08/18 History amoxicillin-pot clavulanate 1 tab PO BID 10 Days #20 tab 11/08/18 Rx Allergies Allergy/AdvReac Type Severity Reaction Status Date / Time No Known Allergies Allergy Unverified 11/08/18 20:16 Exam Const General: cooperative, healthy appearing, comfortable, no acute distress, well developed and well groomed Nutritional Appearance: average body habitus and well nourished Orientation: alert, awake and oriented x3 HENMT Head: normal to inspection, normocephalic and atraumatic Ears: hearing grossly normal bilaterally and external ears normal General nose exam: external nose normal Face and sinus: normal facial exam and sinuses nontender Mouth: oral mucosae normal, lip normal, tongue normal and moist mucous membranes Teeth and gingiva: dentition normal Eyes General: appearance normal, both eyes and all related structures Conjunctivae: conjunctivae normal Sclera: sclerae normal Pupils: PERRL Neck Neck: normal visual inspection and full ROM Chest Chest: normal inspection of the chest Resp Effort & Inspection: normal respiratory effort, able to speak in complete sentences, no cough, no nasal flaring, not tachypneic and no use of accessory muscles Auscultation: clear to auscultation bilaterally, no rales, no rhonchi and no wheezes Cardio Jugular venous pressure: no JVD Rate: regular rate Rhythm: regular rhythm GI Inspection: normal to inspection, no edema and distended Palpation: soft, no masses, tender and No ascites Auscultation: normal bowel sounds Other: mild diffuse distention. pt thinks he is tender more in epigastric/RUQ region. + BS. no true peritonitis Skin General skin exam: no rashes or lesions noted Trauma: no lacerations or abrasions Neuro General: alert, oriented x3, oriented, gait normal, moves all extremities, no focal motor deficits and CN's II-XI intact bilaterally Cognition: normal cognition Speech: speech normal Gait: normal gait Motor: muscle tone normal throughout Extrem General: normal to inspection, full ROM and no clubbing, cyanosis or edema Psych Appearance: grossly normal and well kempt Mental Status: mental status grossly normal Speech and Movement: speech and movement normal Affect: normal affect Results Labs : 11/11/18 08:35 11/11/18 08:35 Laboratory Results - last 24 hr 11/11/18 11/11/18 11/11/18 08:35 08:35 08:35 WBC 6.58 RBC 5.57 Hgb 17.0 Hct 47.1 MCV 84.6 MCH 30.5 MCHC 36.1 H RDW 12.6 Plt Count 264 MPV 9.8 Immature Gran % 0.6 Neutrophils % 52.0 Lymphocytes % 33.7 Monocytes % 8.2 Eosinophils % 3.8 Basophils % 1.7 Absolute Neutrophils 3.42 Absolute Lymphocytes 2.22 Absolute Monocytes 0.54 Absolute Eosinophils 0.25 Absolute Basophils 0.11 Sodium 139 Potassium 3.6 Chloride 104 Carbon Dioxide 21.4 Anion Gap 13.6 H BUN 20 H Creatinine 1.21 Estimated GFR/1.73 m2 >= 60.00 Glucose 119 H Lactate Calcium 9.1 Total Bilirubin 0.7 0.7 AST 54 H ALT 53 Alkaline Phosphatase 96 Total Protein 7.6 Albumin 4.1 Lipase 149 11/11/18 08:45 WBC RBC Hgb Hct MCV MCH MCHC RDW Plt Count MPV Immature Gran % Neutrophils % Lymphocytes % Monocytes % Eosinophils % Basophils % Absolute Neutrophils Absolute Lymphocytes Absolute Monocytes Absolute Eosinophils Absolute Basophils Sodium Potassium Chloride Carbon Dioxide Anion Gap BUN Creatinine Estimated GFR/1.73 m2 Glucose Lactate 1.2 Calcium Total Bilirubin AST ALT Alkaline Phosphatase Total Protein Albumin Lipase Last Vital Signs Temp 36.4 C L 11/11/18 08:25 Pulse 54 L 11/11/18 12:16 Resp 20 11/11/18 08:25 BP 127/84 11/11/18 12:16 Pulse Ox 91 L 11/11/18 12:20
[2018-11-11] MEDS: Midazolam 2 MG/2 ML VIAL (13:15)
[2018-11-11] MEDS: Lidocaine 2% Pres-Free 5 ML VIAL (13:20)
--- NOTE | 2018-11-11 13:30 | STOM_PTH ---
PATIENT: Malachi Senior LOC: [place] Wei#:[id number] AGE/SX: 48/M ROOM: RE11/11/[address]: Frances Warner : 1970 BED: A DIS: 11/13/2018 SPEC #: [id number] RECD: 11/11/18 17:03 STATUS: [facility] #: [id number] DOE: 11/11/18 13:[address]: Frances Warner DEPT: Surgical Specimen RECD BY: Jaycee Slaughter ENTERED: 11/11/18 17:05 SP TYPE: STOMACH OTHR DR: Nanci Spivey Tissues: 1 - BIOPSY BOWEL 2 - STOMACH BIOPSY 3 - STOMACH BIOPSY 4 - ESOPHAGUS BIOPSY Procedures: GROSS AND MICRO LEVEL 4 Comments: [id number]
[2018-11-11] MEDS: Lactated Ringers 1,000 ML 100 ML IV (13:45)
--- NOTE | 2018-11-11 13:45 | W.PM.ENDDOP ---
Date of service: 11/11/18 Time of Service: 13:45 Endoscopy Report DATE OF PROCEDURE: 11/11/18 PRE-OP DIAGNOSIS: ruq pain. rectal bleeding/ hx of gerd POST-OP DIAGNOSIS: other (duodentis/gastritis. hermorragic ulcer. hiatal hernia ) PROCEDURE: egd w/ bx SURGEON: Frances Warner ANESTHESIA: GETA ESTIMATED BLOOD LOSS: 3 PATHOLOGY: other COMPLICATIONS: None DISPOSITION: PACU INDICATIONS: abdominal pain PROCEDURE DESCRIPTION: dictated.
[2018-11-11] MEDS: Sucralfate 1 GM TAB PO ×3 (14:20→21:09)
[2018-11-11] MEDS: Pantoprazole 40 MG VIAL IVP (14:22)
[2018-11-11] MEDS: Normal Saline Flush 10 ML SYR IVP (14:22)
[2018-11-11] MEDS: Lactated Ringers 1,000 ML 150 ML IV (15:46)
[2018-11-11] MEDS: Ketorolac 30 MG/ML VIAL IVP (16:20)
[2018-11-11] MEDS: Normal Saline 1,000 ML 150 ML IV (18:06)
[2018-11-11] MEDS: ACETAMINOPHEN 1,000 MG/100 ML BTL 400 MG IVPB (18:14)
[2018-11-12 00:22] VITALS: BP 123/61; PULSE 60; RESP 18; TEMP 36.2; O2SAT 94
[2018-11-12] MEDS: Normal Saline 1,000 ML 150 ML IV ×4 (01:13→21:58)
[2018-11-12] MEDS: Normal Saline Flush 10 ML SYR IVP ×6 (01:48→19:29)
[2018-11-12 07:28] VITALS: BP 148/88; PULSE 56; RESP 18; TEMP 36.5; O2SAT 96
--- NOTE | 2018-11-12 08:43 | PGE_ITS ---
Documented by User: DENISE Crum 11/12/18 08:47 Date of Service Date of service: 11/12/18 Time of Service: 08:43 Assessment and Plan (1) Hiatal hernia: Current visit: Yes Status: Chronic (2) Elevated LFTs: Current visit: Yes Status: Acute (3) GERD (gastroesophageal reflux disease): Current visit: No Status: Acute (4) Chronic abdominal pain: Current visit: No Status: Chronic (5) Rectal arterial hemorrhage: Current visit: Yes Status: Acute (6) Acute abdominal pain in right upper quadrant: Current visit: Yes Status: Acute The patient is receiving- hydration/IV protonix & carafate therapy/pain management Unable to do HIDA secondary to receiving Morphine. (-) BM RUQ pain Subjective Interval history since last seen: Patient reports that he continues to have RUQ pain. He was given morphine early this morning with improvement in his symptoms. Exam Const General: cooperative and acute distress Resp Effort & Inspection: normal respiratory effort, no audible wheezes and no cough Objective Objective Clinical Data: Abnormal lab results 11/11/18 11/11/18 Range/Units 08:35 08:35 MCHC 36.1 H (32.0-36.0) g/dL Anion Gap 13.6 H (3-11) mmol/L BUN 20 H (7-18) mg/dL Glucose 119 H (70-100) mg/dL AST 54 H (15-37) U/L Vital Signs Temperature 36.2 C L 11/12/18 00:22 Temperature Source Tympanic 11/12/18 00:22 Pulse 60 11/12/18 00:22 Pulse Rhythm Regular 11/12/18 00:00 Respiratory Rate 18 11/12/18 00:22 Respiratory Effort 11/12/18 00:00 Respiratory Depth Normal 11/12/18 00:00 Respiratory Pattern Normal 11/12/18 00:00 Blood Pressure 123/61 11/12/18 00:22 Blood Pressure Mean 97 11/11/18 13:00 Pulse Oximetry 94 L 11/12/18 00:22 Oxygen Delivery Method Room Air 11/12/18 00:22 Oxygen Flow Rate 0 11/12/18 00:22 Pain Level 5 11/12/18 07:03 Comment 11/12/18 00:22 Intake & Output 11/11/18 11/12/18 11/12/18 18:59 06:59 18:59 Intake Total 1300 / 2550 1250 / 2550 1000 / 1000 Output Total 300 / 700 400 / 700 Balance 1000 / 1850 850 / 1850 1000 / 1000 Weight 102.058 kg Intake: IV 1300 / 2400 1100 / 2400 1000 / 1000 Oral 150 / 150 Output: Urine 300 / 700 400 / 700 Other: Urine Color Light Mayra Dark Mayra Urine Appearance Clear Clear Urine Odor Normal Strong Voiding Methods Urinal Urinal Laboratory Results WBC 6.58 k/cumm (4.4-10.8) 11/11/18 08:35 RBC 5.57 m/cumm (4.50-6.00) 11/11/18 08:35 Hgb 17.0 g/dL (13.5-17.5) 11/11/18 08:35 Hct 47.1 % (40.0-50.0) 11/11/18 08:35 MCV 84.6 fL (80-95) 11/11/18 08:35 MCH 30.5 pg (27.0-33.0) 11/11/18 08:35 MCHC 36.1 g/dL (32.0-36.0) H 11/11/18 08:35 RDW 12.6 % (11.8-14.1) 11/11/18 08:35 Plt Count 264 x1000/uL (130-400) 11/11/18 08:35 MPV 9.8 fL (8.0-11.0) 11/11/18 08:35 Immature Gran % 0.6 11/11/18 08:35 52.0 11/11/18 08:35 33.7 11/11/18 08:35 8.2 11/11/18 08:35 3.8 11/11/18 08:35 1.7 11/11/18 08:35 Absolute Neutrophils 3.42 k/cumm (1.2-6.7) 11/11/18 08:35 Absolute Lymphocytes 2.22 k/cumm (1.2-3.4) 11/11/18 08:35 Absolute Monocytes 0.54 k/cumm (0.11-0.7) 11/11/18 08:35 Absolute Eosinophils 0.25 k/cumm (0.0-0.7) 11/11/18 08:35 Absolute Basophils 0.11 k/cumm (0.0-0.2) 11/11/18 08:35 Sodium 139 mmol/L (136-145) 11/11/18 08:35 Potassium 3.6 mmol/L (3.5-5.1) 11/11/18 08:35 Chloride 104 mmol/L (98-107) 11/11/18 08:35 Carbon Dioxide 21.4 mmol/L (21.0-32.0) 11/11/18 08:35 13.6 mmol/L (3-11) H 11/11/18 08:35 BUN 20 mg/dL (7-18) H 11/11/18 08:35 1.21 mg/dL (0.70-1.30) 11/11/18 08:35 >= 60.00 (mL/min/1.73m2) 11/11/18 08:35 Glucose 119 mg/dL (70-100) H 11/11/18 08:35 1.2 mmol/L (0.6-1.4) 11/11/18 08:45 Calcium 9.1 mg/dL (8.5-10.1) 11/11/18 08:35 0.7 mg/dL (0.2-1.0) 11/11/18 08:35 0.7 mg/dL (0.2-1.0) 11/11/18 08:35 AST 54 U/L (15-37) H 11/11/18 08:35 ALT 53 U/L (12-78) 11/11/18 08:35 96 U/L (46-116) 11/11/18 08:35 7.6 g/dL (6.4-8.2) 11/11/18 08:35 4.1 g/dL (3.4-5.0) 11/11/18 08:35 149 U/L (73-393) 11/11/18 08:35 Documented by User: Frances Warner, DO 11/12/18 14:55 Assessment and Plan (1) Acute abdominal pain in right upper quadrant: Current visit: Yes Status: Acute pt seen and examined. Amee w/ above. pt continues to c/o RUQ pain. intense abdomin pain in RUQ/bloating and nausea. Can't eat. Has not had BM since admission. Pt continues to require IV narcs for pain control. Labs/CT/US were all nl. EGD- results noted. Unclear if this is the etiology of the pain or if this is from N/V. Pt states the pain is not improved since he was started on IV protonix or carafate. Will add bentyl and see if this helps. -pt has to be off of all narcotics for 48hrs prior to HIDA. Per policy. -Continue currently course of therapy and see if improves s/s. appendix is out. Pt has had a CE in 2016 for a hx of diverticular dx. CE shows minor tics. Pt also has a Hx of low pain tolerance/chronic abdominal pain. pt does have a stronng [facility] hx of GB dx.
[2018-11-12] MEDS: Sucralfate 1 GM TAB PO ×4 (08:46→23:25)
[2018-11-12 09:26] VITALS: BP 136/78; PULSE 55; RESP 18; TEMP 36.6; O2SAT 95
--- NOTE | 2018-11-12 10:12 | ENDO_ITS ---
NOVEMBER 11, 2018 PREOPERATIVE DIAGNOSIS: Abdominal pain and rectal bleeding. POSTOPERATIVE DIAGNOSIS: Gastritis, duodenitis. Gastric ulcers. Hiatal hernia. Gastroesophageal reflux. INDICATIONS: Mr. Senior is a 48-year-old man who presented to the Emergency Room complaining of abdominal pain and vomiting. This is his second visit in a week's time. He complains of diffuse abdominal pain and says that he feels like he has swallowed basketball, feeling very distended and bloated. He also says that he has been seeing bright red blood in his stools. All of his labs and CT on Friday and repeat CT today were normal. The patient does have significant diffuse tenderness predominantly in the epigastric and right upper quadrant regions. He will be taken down for esophagogastroduodenoscopy today. Informed consent is obtained explaining the risks and benefits of the procedure including, but not limited to, bleeding, infection, perforation, aspiration and complications from the anesthesia. PROCEDURE: The patient was brought to the endoscopy suite and placed in the left lateral position. Anesthesia was administered by the Department of Anesthesia. Bite block was placed. Time out is performed. The previously lubricated endoscope was inserted into the oropharynx and passed down the esophagus. There were no esophageal erosions, varices, diverticula or stricture apparent. He does have a hiatal hernia. Once we entered the stomach he has significant ulcer disease at the antrum in a striped fashion. This has a large eschar over it. There is about six linear branches of this w/ dark eschar. There is no active or old bleeding. The remainder of the body of the stomach has a diffuse red pattern as well, indicating gastritis. There are no signs of active or old blood. The pylorus is freely patent. Upon entering the duodenum, again, there is redness and irritation indicating duodenitis. Biopsies were taken of the duodenum, antrum, greater curvature and the gastroesophageal junction. All specimens were retrieved. No bleeding was noted. The insufflate and gas is removed. The scope is then withdrawn. The patient tolerated the procedure well without complication. He was transferred to the Recovery Room in stable condition.
--- NOTE | 2018-11-12 10:13 | PDOC.CMIN ---
Care Management Initial Assess REASON FOR HOSPITALIZATION:: Abdominal Pain PAST MEDICAL HISTORY/PAST SURGICAL HISTORY:: Depression, Diverticulitis, Elevated LFTs, Gastric Ulcer, GERD, Hiatal Hernia, Appendectomy, Colonoscopy, EGD, wrist surgery PREVIOUS FUNCTIONAL STATUS/SOCIAL/FAMILY SUPPORTS:: Malachi resides in [place] with his signficant other, Nicole. He is independent in the community at baseline. CURRENT FUNCTIONAL STATUS:: CM was unable to connect with Malachi; will reattempt. Per RN notes he is currently refusing food and only drinking fluids. Hyda scan was unable to be completed due to morphine being administered. CM continues to follow. ADVANCE DIRECTIVES:: None on file. Did the patient sign up for the portal?: No CODE STATUS:: Full Code INSURANCE COVERAGE / FINANCIAL ISSUES:: Medicaid CURRENT HOME/COMMUNITY SERVICES/EQUIPMENT:: No current services or equipment. PRIMARY CARE PHYSICIAN:: Nanci Spivey POTENTIAL DISCHARGE NEEDS:: Follow up appointments. PATIENT/FAMILY EDUCATION NEEDS:: Review of discharge instructions, discuss [employer] Me [employer]. ANTICIPATED BARRIERS TO DISCHARGE:: None identified. TRANSPORTATION:: Via private vehicle with his significant other. PLAN:: Malachi will return home when ready per MD. No additional services anticipated at this time. Malachi will transport via private vehicle with his significant other, Nicole.
[2018-11-12] MEDS: Ondansetron 4 MG/2 ML VIAL IVP ×3 (10:59→23:24)
[2018-11-12] MEDS: Pantoprazole 40 MG VIAL IVP (14:28)
[2018-11-12 15:54] VITALS: BP 151/95; PULSE 53; RESP 18; TEMP 36.3; O2SAT 95
[2018-11-12] MEDS: Ketorolac 30 MG/ML VIAL IVP (17:00)
[2018-11-12] MEDS: ACETAMINOPHEN 1,000 MG/100 ML BTL 400 MG IVPB (19:21)
[2018-11-12 23:26] VITALS: BP 116/71; PULSE 66; RESP 16; TEMP 36.3; O2SAT 97
[2018-11-13] MEDS: Normal Saline 1,000 ML 150 ML IV (04:57)
[2018-11-13] MEDS: Sucralfate 1 GM TAB PO (07:54)
[2018-11-13] MEDS: Ketorolac 30 MG/ML VIAL IVP (08:18)
[2018-11-13] MEDS: Normal Saline Flush 10 ML SYR IVP ×2 (08:19→08:49)
[2018-11-13] MEDS: ACETAMINOPHEN 1,000 MG/100 ML BTL 400 MG IVPB (08:21)
--- NOTE | 2018-11-13 08:27 | W.PM.PROGNOT ---
Documented by User: DENIES Crum 11/13/18 08:42 Date of Service Date of service: 11/13/18 Time of Service: 08:27 Assessment and Plan (1) Acute abdominal pain in right upper quadrant: Current visit: Yes Status: Acute RUQ pain continues despite tylenol and Toradol. Patient did not having any medications for pain overnight and reports he slept well Nsg encouraged him to take medications this morning to reduce his pain level which was currenlty a 6/10PL. Abdominal US, Abd/Pelvis CTA and Abd/Pelvis CT were all unremarkable. Endoscopy showed astritis, duodenitis. Gastric ulcers. Hiatal hernia. Gastroesophageal reflux. He is currently on Carfate and Protonix. Labs are unremarkable. No elevated WBC. The next step would ideally be a HIDA scan with CCK to evaluate the function of the gallbladder to r/o dyskinesia. However this cannot be performed until the patient is been 48 hrs without narcotics for this would effect the results of the testing. Discussed this with the patient. The earliest he will be able to have this done will be Friday11/16/18. Patient has a history of ETOH use per medical history. Ordered CIWA assessments. Spoke with Dr. Warner and relayed patient's concerns to her. Subjective Interval history since last seen: Arrived with patient expressing he was extremely upset that his HIDA scan was cancelled. He was educated that his scan was cancelled due to having received morphine yesterday morning. He reports over night he was able to sleep well, with 5/10PL. This morning he reports his pain level to be a extremely strong 6/10PL He continued to express his frustration and stated that he want's to be transferred to a different hospital, [place] or [facility]. Attempted to speak with him further, however he requested this provider leave, he did not want to speak to anyone else except for the doctor or a document imaging manager. Exam Narrative Exam Narrative: Unable to perform a physical exam, for this provider was asked to leave. Const General: healthy appearing and acute distress Orientation: alert and oriented x3 Resp Effort & Inspection: normal respiratory effort, no audible wheezes and no cough Objective Objective Clinical Data: Vital Signs Temperature 36.3 C L 11/12/18 23:26 Temperature Source Tympanic 11/12/18 23:26 Pulse 66 11/12/18 23:26 Pulse Rhythm Regular 11/12/18 23:26 Respiratory Rate 16 11/12/18 23:26 Respiratory Effort Non-Labored 11/12/18 23:26 Respiratory Depth Normal 11/12/18 23:26 Respiratory Pattern Normal 11/12/18 23:26 Blood Pressure 116/71 11/12/18 23:26 Blood Pressure Mean 97 11/11/18 13:00 Pulse Oximetry 97 11/12/18 23:26 Oxygen Delivery Method Room Air 11/12/18 23:26 Oxygen Flow Rate 0 11/12/18 23:26 Pain Level 6 11/13/18 08:21 Comment 11/12/18 00:22 Intake & Output 11/12/18 11/13/18 11/13/18 18:59 06:59 18:59 Intake Total 1984 2100 / 4085 Output Total 1250 / 2450 1200 / 2450 Balance 735 / 1635 900 / 1635 Intake: IV 1984 2100 / 4085 Output: Urine 1250 / 2450 1200 / 2450 Other: Urine Color Yellow Yellow Urine Appearance Clear Clear Urine Odor Normal Normal Voiding Methods Urinal Urinal Laboratory Results WBC 6.58 k/cumm (4.4-10.8) 11/11/18 08:35 RBC 5.57 m/cumm (4.50-6.00) 11/11/18 08:35 Hgb 17.0 g/dL (13.5-17.5) 11/11/18 08:35 Hct 47.1 % (40.0-50.0) 11/11/18 08:35 MCV 84.6 fL (80-95) 11/11/18 08:35 MCH 30.5 pg (27.0-33.0) 11/11/18 08:35 MCHC 36.1 g/dL (32.0-36.0) H 11/11/18 08:35 RDW 12.6 % (11.8-14.1) 11/11/18 08:35 Plt Count 264 x1000/uL (130-400) 11/11/18 08:35 MPV 9.8 fL (8.0-11.0) 11/11/18 08:35 Immature Gran % 0.6 11/11/18 08:35 52.0 11/11/18 08:35 33.7 11/11/18 08:35 8.2 11/11/18 08:35 3.8 11/11/18 08:35 1.7 11/11/18 08:35 Absolute Neutrophils 3.42 k/cumm (1.2-6.7) 11/11/18 08:35 Absolute Lymphocytes 2.22 k/cumm (1.2-3.4) 11/11/18 08:35 Absolute Monocytes 0.54 k/cumm (0.11-0.7) 11/11/18 08:35 Absolute Eosinophils 0.25 k/cumm (0.0-0.7) 11/11/18 08:35 Absolute Basophils 0.11 k/cumm (0.0-0.2) 11/11/18 08:35 Sodium 139 mmol/L (136-145) 11/11/18 08:35 Potassium 3.6 mmol/L (3.5-5.1) 11/11/18 08:35 Chloride 104 mmol/L (98-107) 11/11/18 08:35 Carbon Dioxide 21.4 mmol/L (21.0-32.0) 11/11/18 08:35 13.6 mmol/L (3-11) H 11/11/18 08:35 BUN 20 mg/dL (7-18) H 11/11/18 08:35 1.21 mg/dL (0.70-1.30) 11/11/18 08:35 >= 60.00 (mL/min/1.73m2) 11/11/18 08:35 Glucose 119 mg/dL (70-100) H 11/11/18 08:35 1.2 mmol/L (0.6-1.4) 11/11/18 08:45 Calcium 9.1 mg/dL (8.5-10.1) 11/11/18 08:35 0.7 mg/dL (0.2-1.0) 11/11/18 08:35 0.7 mg/dL (0.2-1.0) 11/11/18 08:35 AST 54 U/L (15-37) H 11/11/18 08:35 ALT 53 U/L (12-78) 11/11/18 08:35 96 U/L (46-116) 11/11/18 08:35 7.6 g/dL (6.4-8.2) 11/11/18 08:35 4.1 g/dL (3.4-5.0) 11/11/18 08:35 149 U/L (73-393) 11/11/18 08:35 Documented by User: Frances Warner, 11/13/18 12:39 Assessment and Plan (1) RUQ abdominal pain: Current visit: Yes Status: Acute pt seen and examined w/ his RN and Nursing supervisor typesetting and present. pt is upset b/c we don't know what his diagnosis is. We aren't treating his pain and we are not doing the HIDA scan. Pt has to be off of ALL narcotics for 48 hrs prior to HIDA scan. Pt was admitted on fri after his EGD for ulcer Dx. He was not prescribed any narcotics. Pt c/o to RN's that he had severe pain despite using non narcotic pain adjuncts and demanded something strong for pain. The med-surg charge nurse from Fri night happens to be here, and states that pt was informed that receiving narcotics would delay his HIDA scan. Pt was adamant he wanted something for pain. Pt did receive narcotics for pain. He has no fever or WBC count. US of GB was nl. LFT's are nl. X2 CT scan are nl. Pt states he is NOT having diarrhea and is upset that he is in insolation precautions. The pt did tell me he is having severe diarrhea. He has not had a stool since admission. pt c/o abdominal pain and nausea, however we do not seem to have an etiology for this. All labs and rads studies are nl. -Notes in the computer note that he has had mult + drug screens in the past. He has been given a Dg of chronic abdominal pain/IBS. He had a CE in 2016- which shows minor diverticula and no infection. They were few and minor. Bx were nl. He was worked up for sprue- this was all nl. He has had his appendix out. pt denies hx of ETOH. He is insulted that he was put on CIWA. pt is belligerent adn wants to know why we can't treat his pain and figure out what is wrong with him. Ultimately, pt chooses to leave AMA. he did not get a Rx for protonic/carafate. pt does have a lg ulcer in his stomach. His cbc is nl. VSS and no signs of active bleeding or peritonitis. pt is stable to leave AMA
[2018-11-13] MEDS: Ondansetron 4 MG/2 ML VIAL IVP (08:48)
[2018-11-13 09:24] VITALS: BP 135/83; PULSE 52; RESP 16; TEMP 36.8; O2SAT 97
--- NOTE | 2018-11-13 14:07 | NUR.NOTE ---
Nursing Note: This patient complained yesterday that he was very dissatisfied with the communication within this facility. He further stated that he was extremely frustrated that he was supposed to have a HIDDA scan and was now unable to do so because the night nurse gave him a narcotic, which means the test could not be performed. Patient continued and stated that he was never told what was going on and would have suffered through the pain if he had been told the test would be cancelled if he took morphine. This morning Jaylene Gross RN informed him that his HIDDA scan scheduled for today was cancelled and would not be done until until Friday. This patient became very agitated, yelling that he was leaving and that he was sick of this place. Patient did calm down with de-escalation. Patient was informed a short time later that he had been placed on CIWA and why. Patient became extremely agitated once again and stated he was definitely leaving AMA this time. Patient signed his AMA form, IV site was discontinued but then the patient agreed to stay and meet with the [employer] and Dr Warner prior to leaving. This patient reiterated to them several times how unhappy he is with his care and how he wanted to simply have the exam and find out what was wrong. patient stated multiple times that he was not a drug addict or an alcoholic. Patient was told again that all of his labs are normal, that he had 2 normal CAT scans and was scoped at which time ulcers were found. Patient told that staying here for supportive care until the HIDDA scan could be done was the best that could be done at this time. Patient stated that he wanted a shower and he would think about whether he was going to stay or not. This RN checked on him 3 times over the next two to three hours while he was still thinking about what he was going to do. The patient never verbally told this RN that he was going to leave. He was seen getting on the elevator at 1225.
--- NOTE | 2018-11-13 15:35 | NUR.NOTE ---
Nursing Note: 0745- RN informed pt that hida scan was cancelled and would be rescheduled for friday. pt was very upset and frustrated. backstory: 11/12 pt claims he didn't get told that he couldn't have the hida scan if he had morphine. or at least didn't know he would have to wait 24-48 hours to get the scan. pt was also not informed why people were coming in his room with precaution gowns. pt said he had diarrhea once and had a regular bm following that one, and hadn't had a bm since 11/10. pt felt there was a lack of communication upon his arrival to [facility] floor until the morning of 11/12. pt in severe pain and visibly upset about the communication and wait. 0900- cwa's ordered for pt. pt even more upset because he felt like he was being accused of being an alcoholic. pt states just because hes upset about the lack of communication and long anticipated wait for the scan doesn't mean he was withdrawing from alcohol and got angry. pt wanting to leave AMA.
== END 2018-11-13 12:25 | disposition left against medical advice (07) ==
LOC: DSU 14:59 → ER 14:59 → MS 15:11
PROVIDERS: Admitting Provider Surgery; Emergency Provider Emergency Medicine; PCP Nurse Practitioner Family; Visit Provider Surgery
PROC: 0DJ68ZZ Inspection of Stomach, Via Natural or Artificial Opening Endoscopic (ICD-10-PCS; CPT 43235; principal; 2018-11-11 13:00)
DX: K29.71 Gastritis, unspecified, with bleeding (principal); K25.4 Chronic or unspecified gastric ulcer with hemorrhage; K29.80 Duodenitis without bleeding; R10.11 Right upper quadrant pain; K44.9 Diaphragmatic hernia without obstruction or gangrene; K21.9 Gastro-esophageal reflux disease without esophagitis; R79.89 Other specified abnormal findings of blood chemistry
CPT/HCPCS: 43239; 36415; 80053; 83690; 88305; 96361; 96374; 96375; 96376; 99222; 99232; 99285; NC; 74174; 76705; 82247; 83605; 85025; 99284; G0378; J0131; J1885; J2060; J2250; J2405; J3010; J3490; Q9967

== ENCOUNTER 2019-03-10 12:41 | Outpatient (REF) | payer MEDICAID, SELFPAY ==
[2019-03-10 19:37] LABS: Abs Immature Grans 0.04 k/cumm (0.0-0.09); Absolute Basophil Count 0.07 k/cumm (0.0-0.2); Absolute Eosinophil Count 0.32 k/cumm (0.0-0.7); Absolute Lymphocyte Count 2.22 k/cumm (1.2-3.4); Absolute Neutrophil Count 3.15 k/cumm (1.2-6.7); Basophils % 1.1; Eosinophils % 5.2; HCT 43.6 % (40.0-50.0); HGB 15.4 g/dL (13.5-17.5); Immature Grans % 0.6; Lymphocytes % 35.8; Mean Corp. HGB Concentration 35.3 g/dL (32.0-36.0); Mean Corpuscular Hemoglobin 30.5 pg (27.0-33.0); Mean Corpuscular Volume 86.3 fL (80-95); Mean Platelet Volume 9.8 fL (8.0-11.0); Monocytes % 6.5; Neutrophils % 50.8; Platelet Count 227 x1000/uL (130-400); RBC 5.05 m/cumm (4.50-6.00); RBC Distribution Width 12.4 % (11.8-14.1)
[2019-03-10 20:28] LABS: ALT 26 U/L (16-63); AST 13 U/L (15-37); Albumin 3.9 g/dL (3.4-5.0); Alkaline Phosphatase 98 U/L (46-116); Amylase 58 U/L (25-115); BUN 15 mg/dL (7-18); Bilirubin, Total 0.5 mg/dL (0.2-1.0); CREATININE 1.02 mg/dL (0.70-1.30); Calcium 8.8 mg/dL (8.5-10.1); Chloride 108 mmol/L (98-107); Glucose 93 mg/dL (74-106); Lipase 79 U/L (73-393); Potassium 3.9 mmol/L (3.5-5.1); Sodium 144 mmol/L (136-145); Total Protein 6.8 g/dL (6.4-8.2)
== END 2019-03-10 13:01 ==
LOC: NCHCN 12:41
PROVIDERS: PCP Nurse Practitioner Family; Visit Provider Nurse Practitioner Family
DX: R10.9 Unspecified abdominal pain (principal)
CPT/HCPCS: 80053; 83690; 82150; 85025

== ENCOUNTER 2019-04-21 14:24 | Outpatient (REF) | payer MEDICAID, SELFPAY ==
[2019-04-21 20:04] LABS: Bilirubin Negative (Negative); Blood Trace-intact (Negative); Clarity Clear (Clear); Glucose Negative (Negative); Ketones Negative (Negative); Leukocyte Esterase Negative (Negative); Nitrite Negative (Negative); Specific Gravity >= 1.030 (1.005-1.025); Urobilinogen 0.2 EU/dL (Up TO 0.2)
[2019-04-21 20:36] LABS: Bacteria Negative HPF (Negative); C & S Indicated? No; Crystals Negative HPF (Negative); Epithelial Cells Negative HPF (Negative); Mucus Negative (Negative); RBC 0-2 HPF (0-2); WBC 0-2 HPF (0-5)
== END 2019-04-21 14:44 ==
LOC: NCHCN 14:24
PROVIDERS: PCP Nurse Practitioner Family; Visit Provider Nurse Practitioner Family
DX: R39.89 Other symptoms and signs involving the genitourinary system (principal)
CPT/HCPCS: 81003; 81015; 82043; 82570

== ENCOUNTER 2019-04-21 14:47 | Outpatient (CLI) | payer MEDICAID, SELFPAY ==
--- NOTE | 2019-04-21 14:48 | DI.CT_ITS ---
EXAM: CT ABDOMEN AND PELVIS WO/W CLINICAL HISTORY: URINARY SYMPTOMS, R39.9,ACUTE ABD PAIN,R10.9 TECHNIQUE: Noncontrast examination was performed. COMPARISON: ABD PELVIS WITH CONTRAST from 10/30/2015 CT ABDOMEN/ PELVIS CTA from 11/11/2018 FINDINGS: There is no evidence of nephrolithiasis, ureterolithiasis or hydronephrosis. No bladder stones are p resent. Postcontrast images were obtained. There are stable pulmonary nodules in the left lower lobe. The l iver, gallbladder, bile ducts, pancreas, spleen and adrenal glands are unremarkable. There are stabl e bilateral renal cysts. No solid renal mass is present. The kidneys show normal and symmetric enha ncement. The urinary bladder is unremarkable. Prostate gland is mildly enlarged and impinges upon t he base of the urinary bladder. There is diverticulosis of the colon but no evidence of acute diverti culitis. There is no evidence of bowel obstruction or inflammation. No evidence of acute appendicit is is present. The abdominal aorta is of normal caliber. No significant abdominal or pelvic adenopa thy, ascites or pneumoperitoneum is present. Degenerative changes are seen in the spine. Delayed images of the renal collecting system were performed. There is no dilatation of the collecti ng system. The urinary bladder appears intact. No filling defects are seen. IMPRESSION: No evidence of nephrolithiasis or hydronephrosis. No evidence of a renal or bladder mass. Mildly enlarged prostate gland, which impinges upon the base of the urinary bladder.
[2019-04-21] MEDS: Omnipaque 350 MG/ML 100 ML BTL IJ (15:17)
[2019-04-21] MEDS: Normal Saline - Diluent 50 ML VIAL IV ×2 (15:18)
== END 2019-04-21 15:07 ==
PROVIDERS: PCP Nurse Practitioner Family; Visit Provider Nurse Practitioner Family
DX: R39.9 Unspecified symptoms and signs involving the genitourinary system (principal); R10.9 Unspecified abdominal pain; N40.0 Benign prostatic hyperplasia without lower urinary tract symptoms; N28.1 Cyst of kidney, acquired
CPT/HCPCS: 74178; J3490

== ENCOUNTER 2019-04-23 12:26 | Outpatient (CLI) | payer MEDICAID, SELFPAY ==
[2019-04-23 13:13] LABS: Bilirubin Negative (Negative); Blood Trace-intact (Negative); Clarity Clear (Clear); Glucose Negative (Negative); Ketones Negative (Negative); Leukocyte Esterase Negative (Negative); Nitrite Negative (Negative); Specific Gravity >= 1.030 (1.005-1.025); Urobilinogen 0.2 EU/dL (Up TO 0.2); pH 5.5 (5-8)
[2019-04-23 13:23] LABS: Bacteria Negative HPF (Negative); C & S Indicated? No; Casts Negative LPF (Negative); Crystals Negative HPF (Negative); Epithelial Cells Negative HPF (Negative); Mucus Trace (Negative); Other Cells Negative (Negative); RBC 0-2 HPF (0-2); WBC 0-2 HPF (0-5)
== END 2019-04-23 12:46 ==
PROVIDERS: Nurse Practitioner Family; PCP Nurse Practitioner Family; Visit Provider Nurse Practitioner Family
DX: R39.89 Other symptoms and signs involving the genitourinary system (principal)
CPT/HCPCS: 81003; 81015

== ENCOUNTER 2019-05-01 12:44 | Emergency (ER) | payer MEDICAID, SELFPAY ==
[2019-05-01 12:47] VITALS: BP 137/91; PULSE 60; RESP 18; TEMP 36.8; O2SAT 98
--- NOTE | 2019-05-01 13:04 | ED.GENADUL_ITS ---
Discharge Plan Disposition Patient Disposition: HOME Condition: Good Discharge Details Chief Complaint: Laceration Clinical Impression: Hand laceration Primary Care Provider: Nanci Spivey ED Provider: Janet Davison Home Meds and New Rx's Prescriptions: Continued silodosin 4 mg capsule 4 mg PO DAILY Qty: 30 RF: 12 Toviaz 4 mg tablet extended release 24 hr 4 mg PO DAILY Qty: 30 RF: 12 omeprazole 40 MG capsule,delayed release(DR/EC) 40 mg PO DAILY RF: 0 sumatriptan succinate [Imitrex] 25 mg tablet 25 mg PO ONCE PRNRF: 0 Discharge Instructions Instructions: Laceration (ED) Additional Instructions: Keep wound clean, dry, covered. Keep current dressing until tomorrow. After that time, you may wash with running water and soap. Cover with a Band-Aid. Monitor wound for signs of infection occluding redness, warmth, drainage, increased pain, fever/chills. If you develop these or other new/worsening symptoms please seek care urgently once again. Otherwise, please return in 1 week for suture removal. Tetanus was updated today. Referrals: Nanci Spivey [Primary Care Provider] - Discharge Data Discharge Date/Time-TO BE ENTERED AT DEPARTURE: 05/01/19 14:27 Medical Decision Making Patient is a pleasant [id number] 49-year-old gentleman presents today with chief complaint of laceration to left hand. He reports a prior to arrival it was knocking on a glass door with his left hand and the glass broke causing lacerations to left hand. He has 2 lacerations, one is 5 mm linear just ulnar to the third metacarpal. No significant wound is a 1.5 cm curvilinear laceration to the radial side just distal to the third MCP joint. No active bleeding. He believes tetanus is up-to-date. He describes glass going into the laceration at the MCP joint. I do not appreciate any foreign body on exam, plan for imaging for further evaluation. FINDINGS: Bones/joints: Normal. Soft tissues: Normal. IMPRESSION: No acute findings. Discussed these findings with the patient. Discussed results both as well as expected procedural steps and closure of the wound flap. Voiced understanding and wished to proceed. Please see procedure note. Patient tolerated this well. Wound was copiously irrigated and explored to base in a bloodless field no foreign body or debris noted. Patient I discussed wound care in depth. He was given return precautions. He will return in 7 days for suture removal. All his questions concerns were addressed and is agreement this plan. HPI General Mode of arrival: ambulatory . Date/Time Provider Initiated Documentation: 05/01/19 13:04 . Limitations to Documentation: no limitations . Information obtained by: patient, family (accompanied by ) and RN notes reviewed . History of Present Illness 49 year old M presents to the emergency department with the chief complaint of Lacerations left hand, described as moderate, with intensity rated at 5. Quality is described as aching, and is localized to the left and upper extremity. Patient reports no radiation. Patient started experiencing this minute(s) and it has been constant. No relieving factors improve symptom(s), No exacerbating factors reported . Patient notes no other symptoms.. Patient did receive the following treatments prior to arrival, none Related Data Home Medications Medication Instructions Recorded Confirmed omeprazole 40 mg PO DAILY 09/06/18 05/01/19 fesoterodine 4 mg tablet,extended 4 mg PO DAILY #30 tab 04/29/19 05/01/19 release 24 hr silodosin 4 mg capsule 4 mg PO DAILY #30 cap 04/29/19 05/01/19 sumatriptan succinate [Imitrex] 25 mg PO ONCE PRN 05/01/19 05/01/19 Previous Rx's Medication Instructions Recorded fesoterodine 4 mg tablet,extended 4 mg PO DAILY #30 tab 04/29/19 release 24 hr silodosin 4 mg capsule 4 mg PO DAILY #30 cap 04/29/19 Allergies Allergy/AdvReac Type Severity Reaction Status Date / Time No Known Allergies Allergy Unverified 05/01/19 12:49 General Stated Complaint: Laceration NEELIMA: 4 Review of Systems Constitutional Constitutional: Reports as per HPI, Denies chills, Denies fever(s), Denies headache(s) and Denies weakness ENT Ears, Nose, Mouth, and Throat: Denies headache(s) Cardiovascular Cardiovascular: Reports as per HPI Respiratory Respiratory: Reports as per HPI and Denies cough Musculoskeletal Musculoskeletal: Reports as per HPI and Denies tingling Integumentary/Breasts Skin/Breast: Reports as per HPI, Denies rash and Reports wounds Neurologic Neurologic: Reports as per HPI, Denies headache(s), Denies tingling, Denies paresthesias and Denies weakness [facility] Medical History Depression (Chronic) Diverticulitis Elevated LFTs (Acute) Gastric ulcer (Acute) GERD (gastroesophageal reflux disease) (Chronic) Hiatal hernia (Chronic) History of urinary urgency (Acute) Surgical History Appendectomy Colonoscopy - MAC (05/13/17) EGD - MAC (05/13/17) wrist surgery Social History Smoking/Tobacco Use Status: Never Alcohol Intake: current Alcohol Intake frequency: a few times a week Drug use: Occasionally Substance use type: marijuana Do you feel safe at home: Yes Do you feel safe in your relationship?: Yes Exam Const General: cooperative, healthy appearing, comfortable, no acute distress, well developed and well groomed Nutritional Appearance: average body habitus and well nourished Orientation: alert and awake Resp Effort & Inspection: normal respiratory effort, able to speak in complete sentences and no respiratory distress Cardio Rate: regular rate Rhythm: regular rhythm Skin Trauma: laceration (2 lacerations as drawn below) Neuro General: alert and awake Cognition: normal cognition Speech: speech normal Gait: normal gait Motor: muscle tone normal throughout Sensory Exam: no sensory deficits noted Extrem Left upper extremity: full ROM, normal capillary refill, no joint enlargement and hand Details: normal to inspection, normal capillary refill, neuromotor exam normal, neurosensory exam normal, tendon exam normal, tenderness (over lacerations), vascular exam Details: radial pulse present and normal capillary refill, normal ROM of fingers and laceration; no unusual warmth, no swelling, no ecchymosis and no foreign bodies (none noted on palpation); abnormal to inspection (Lacerations as drawn below) and no cyanosis Hand/finger images: 1. 5mm laceration into subQ tissues, no active bleeding. No FB visualized or palpable 2. 1.5cm curvilinear laceration into subQ. Tendon exam intact, sensation intact, good capillary refill. No visible or palpable FB. No active bleeding. Psych Appearance: grossly normal and well kempt Mental Status: mental status grossly normal Speech and Movement: speech and movement normal Course Vital Signs Vital signs: Vital Signs Temperature 36.8 C 05/01/19 12:47 Pulse 60 05/01/19 12:47 Respiratory Rate 18 05/01/19 12:47 Blood Pressure 137/91 H 05/01/19 12:47 Pulse Oximetry 98 05/01/19 12:47 Temperature 36.8 C 05/01/19 12:47 Temperature Source Temporal Artery Scan 05/01/19 12:47 Pulse 60 05/01/19 12:47 Respiratory Rate 18 05/01/19 12:47 Respiratory Effort Non-Labored 05/01/19 12:52 Blood Pressure 137/91 H 05/01/19 12:47 Blood Pressure Position Sitting 05/01/19 12:47 Pulse Oximetry 98 05/01/19 12:47 Oxygen Delivery Method Room Air 05/01/19 12:47 Oxygen Flow Rate 0 05/01/19 12:47 Pain Level 5 05/01/19 12:47 Procedures Laceration Laceration 1: Site: hand Side (If applicable): left Size (cm): 1.5 Description: flap Depth: simple, single layer Local Anesthetic: Lidocaine 1% Amount of anesthesia used (mL): 5 Pre-repair: wound explored, irrigated extensively and deep structures intact Skin layer closed with: nylon Size (cm): 6-0 Number of sutures: 3 Technique: simple, interrupted
--- NOTE | 2019-05-01 13:30 | DI.RAD_ITS ---
EXAM: XR HAND LT COMPLETE INDICATION: broken glass, ?FB, lacerations 3rd MCP. COMPARISON: No exams were available for comparison TECHNIQUE: 2D digital imaging was performed. FINDINGS: No acute fracture or dislocation is present. No radiopaque foreign bodies are seen in the soft tissu es. There is soft tissue swelling of the index and middle fingers. IMPRESSION: No acute abnormality.
--- NOTE | 2019-05-01 13:59 | DI.VRAD_ITS ---
PROCEDURE INFORMATION: Exam: XR Left Hand Exam date and time: 05/01/2019 1:27 PM Age: 49 years old Clinical indication: Pain; Hand; Left; Patient HX: Broken glass ? fb, laceration 3rd mcp. TECHNIQUE: Imaging protocol: XR Left hand. Views: 3 or more views. COMPARISON: No relevant prior studies available. FINDINGS: Bones/joints: Normal. Soft tissues: Normal. IMPRESSION: No acute findings. Dictated and Authenticated by: Augustin Jones MD. Ordering:EVER Gonzales MD
== END 2019-05-01 14:27 | disposition home or self-care (01) ==
PROVIDERS: Emergency Provider Physician Assistant; PCP Nurse Practitioner Family
DX: S61.412A Laceration without foreign body of left hand, initial encounter (principal); W25.XXXA Contact with sharp glass, initial encounter
CPT/HCPCS: 12001; 90471; 99283; 73130; 99281

== ENCOUNTER 2019-05-11 05:41 | Emergency (ER) | payer MEDICAID, SELFPAY ==
[2019-05-11 05:45] VITALS: BP 142/94; PULSE 84; RESP 20; TEMP 36.7; O2SAT 98
--- NOTE | 2019-05-11 06:07 | W.ED.GENAD ---
Discharge Plan Disposition Patient Disposition: HOME Condition: Good Discharge Details Chief Complaint: Abd Prob Clinical Impression: Male pelvic pain Primary Care Provider: Nanci Spivey ED Provider: Ti Mark Meds and New Rx's Prescriptions: New ibuprofen [IBU-200] 200 mg tablet 600 mg PO Q8H PRN (Reason: pain) Qty: 60 RF: 0 promethazine 25 mg tablet 25 mg PO TID PRN (Reason: nausea and vomiting) Qty: 15 RF: 0 Continued Toviaz 4 mg tablet extended release 24 hr 4 mg PO DAILY Qty: 30 RF: 12 tamsulosin 0.4 mg capsule 0.4 mg PO DAILY Qty: 30 RF: 12 omeprazole 40 MG capsule,delayed release(DR/EC) 40 mg PO DAILY RF: 0 sumatriptan succinate [Imitrex] 25 mg tablet 25 mg PO ONCE PRNRF: 0 Discharge Instructions Additional Instructions: Laboratory studies today are normal. Abdominal exam and exam unremarkable with no evidence of surgical problem. Continue current medications. Use ibuprofen and promethazine for the next couple of days for symptoms. Follow-up with primary care and/or urology. Return to ED for fever, vomiting, worsening or new pain, inability urinate, other concerns or problems. Referrals: Tres Garland MD [ [facility]IAN] - Nanci Spivey [Primary Care Provider] - Medical Decision Making Patient with recurrent lower abdominal/pelvic pain which he reports having previously with negative work-ups. CT scan just done at the end of March unremarkable. Follow up with Dr. Garland and started on medication for enlarged prostate. Multiple scans in the past. Completely benign abdomen as well as unremarkable exam. Will place IV and give Toradol and Phenergan. Will check urine and labs. Will avoid imaging. 07:45 -patient is feeling better after medications. Laboratory studies are unremarkable. He has just provided a urine sample. Assuming this is negative for infection, we will plan discharge home on Motrin and Phenergan to follow-up with primary care and urology. I discussed with patient who is agreeable with plan. Return to ED for fever, vomiting, new or worsening pain. Medical Records Medical records reviewed: Yes I reviewed the patient's medical records. Lab Data Lab results reviewed: Yes I reviewed the patient's lab results. HPI General Mode of arrival: ambulatory. Date/Time Provider Initiated Documentation: 05/11/19 06:04. Limitations to Documentation: no limitations. Information obtained by: patient, RN notes reviewed and old records reviewed. HPI Narrative: Patient presents to ED with lower abdominal pain radiating from the back into the groin and testicles for the last 2 days. He has had this previously. He was actually seen here at the end of March for similar discomfort. CT scan then was negative. He was sent seen by urology, Dr. Garlnad, and started on medications. In reviewing his records, he is actually had multiple CT scans as well as CTAs of the abdomen pelvis as well as admissions with negative work-ups. At one time he did have acute diverticulitis. He denies fevers or chills. He has nausea but no vomiting. He has no urinary symptoms. He has no diarrhea or constipation. Related Data Home Medications Medication Instructions Recorded Confirmed omeprazole 40 mg PO DAILY 09/06/18 05/11/19 fesoterodine 4 mg tablet,extended 4 mg PO DAILY #30 tab 04/29/19 05/11/19 release 24 hr sumatriptan succinate [Imitrex] 25 mg PO ONCE PRN 05/01/19 05/11/19 tamsulosin 0.4 mg capsule 0.4 mg PO DAILY #30 cap 05/04/19 05/11/19 ibuprofen [IBU-200] 600 mg PO Q8H PRN #60 tab 05/11/19 promethazine 25 mg PO TID PRN #15 tab 05/11/19 Previous Rx's Medication Instructions Recorded fesoterodine 4 mg tablet,extended 4 mg PO DAILY #30 tab 04/29/19 release 24 hr tamsulosin 0.4 mg capsule 0.4 mg PO DAILY #30 cap 05/04/19 ibuprofen [IBU-200] 600 mg PO Q8H PRN #60 tab 05/11/19 promethazine 25 mg PO TID PRN #15 tab 05/11/19 Allergies Allergy/AdvReac Type Severity Reaction Status Date / Time No Known Allergies Allergy Unverified 05/11/19 05:55 General Stated Complaint: Abd Prob NEELIMA: 3 Review of Systems Narrative: As documented in HPI otherwise negative as below. Const: no fever, chills, weakness Resp: no cough, SOB, pleuritic pain CV: no CP, diaphoresis, edema, syncope GI: abdominal pain, nausea; no vomiting, diarrhea Neuro: no headache, numbness, focal weakness, confusion FOR[facility], [facility] Medical History Depression (Chronic) Diverticulitis Gastric ulcer (Chronic) GERD (gastroesophageal reflux disease) (Chronic) Hiatal hernia (Chronic) History of urinary urgency (Acute) Surgical History Appendectomy Colonoscopy - MAC (05/13/17) EGD - MAC (05/13/17) wrist surgery Social History Smoking/Tobacco Use Status: Never Alcohol Intake: current Alcohol Intake frequency: a few times a week Drug use: Occasionally Substance use type: marijuana Do you feel safe at home: Yes Do you feel safe in your relationship?: Yes Exam Narrative Exam Narrative: Vitals: Afebrile. Elevated blood pressure otherwise normal vitals and room air pulse oximetry. Const: WDWN male in NAD. HEENT: NC/AT. Normal facial exam. Eyes: Normal conjunctiva and sclera. Neck: Supple. Trachea midline. Lungs: Normal respiratory effort. Lungs are clear. Cor: RRR without murmur/gallop. Good radial pulses. GI: Soft. NT/ND. No guarding or rebound. Back: No CVAT : Normal male genitalia. No hernias. Testicles nontender and nonswollen. No erythema. No perineal tenderness. Neuro: A+O x 3. Normal speech, mentation, gait. Cranial nerves II - XII grossly intact. No gross motor or sensory deficit. Ext: No C/C/E. Skin: Warm and dry without rash. Course Vital Signs Vital signs: Vital Signs Temperature 98.1 F 05/11/19 05:45 Pulse 84 05/11/19 05:45 Respiratory Rate 05/11/19 05:45 Blood Pressure 142/94 H 05/11/19 05:45 Pulse Oximetry 98 05/11/19 05:45 Temperature 98.1 F 05/11/19 05:45 Temperature Source Skin 05/11/19 05:45 Pulse 84 05/11/19 05:45 Respiratory Rate 20 05/11/19 05:45 Respiratory Effort Non-Labored 05/11/19 05:54 Blood Pressure 142/94 H 05/11/19 05:45 Blood Pressure Position Supine 05/11/19 05:45 Pulse Oximetry 98 05/11/19 05:45 Oxygen Delivery Method Room Air 05/11/19 05:45 Oxygen Flow Rate 0 05/11/19 05:45 Pain Level 8 05/11/19 05:45
[2019-05-11 06:23] LABS: Lactate 1.2 mmol/L (0.6-1.4)
[2019-05-11 06:29] LABS: Abs Immature Grans 0.04 k/cumm (0.0-0.09); Absolute Basophil Count 0.06 k/cumm (0.0-0.2); Absolute Eosinophil Count 0.23 k/cumm (0.0-0.7); Absolute Lymphocyte Count 2.07 k/cumm (1.2-3.4); Absolute Monocyte Count 0.46 k/cumm (0.11-0.7); Absolute Neutrophil Count 2.62 k/cumm (1.2-6.7); Basophils % 1.1; Eosinophils % 4.2; HCT 41.8 % (40.0-50.0); HGB 15.4 g/dL (13.5-17.5); Immature Grans % 0.7 %; Lymphocytes % 37.8; Mean Corp. HGB Concentration 36.8 g/dL (32.0-36.0); Mean Corpuscular Hemoglobin 31.4 pg (27.0-33.0); Mean Corpuscular Volume 85.1 fL (80-95); Mean Platelet Volume 9.4 fL (8.0-11.0); Monocytes % 8.4; Neutrophils % 47.8; Platelet Count 246 x1000/uL (130-400); RBC 4.91 m/cumm (4.50-6.00); RBC Distribution Width 12.2 % (11.8-14.1); White Blood Cell Count 5.48 k/cumm (4.4-10.8)
[2019-05-11] MEDS: Ketorolac 30 MG/ML VIAL IVP (06:35)
[2019-05-11 06:55] LABS: ALT 21 U/L (16-63); AST 12 U/L (15-37); Albumin 3.6 g/dL (3.4-5.0); Alkaline Phosphatase 109 U/L (46-116); Anion Gap 8.1 mmol/L (3-11); BUN 16 mg/dL (7-18); Bilirubin, Total 0.4 mg/dL (0.2-1.0); CO2 25.9 mmol/L (21.0-32.0); Calcium 8.1 mg/dL (8.5-10.1); Chloride 106 mmol/L (98-107); Estimated GFR 58.67 (mL/min/1.73m2); Glucose 118 mg/dL (74-106); Lipase 97 U/L (73-393); Potassium 3.7 mmol/L (3.5-5.1); Sodium 140 mmol/L (136-145); Total Protein 6.6 g/dL (6.4-8.2)
[2019-05-11 07:50] LABS: Bilirubin Negative (Negative); Blood Negative (Negative); Clarity Clear (Clear); Glucose Negative (Negative); Ketones Negative (Negative); Leukocyte Esterase Negative (Negative); Nitrite Negative (Negative); Specific Gravity 1.025 (1.005-1.025); Urobilinogen 0.2 EU/dL (Up TO 0.2)
[2019-05-11 08:26] VITALS: BP 127/91; PULSE 59; RESP 18; TEMP 37.1; O2SAT 96
[2019-05-11 08:40] VITALS: BP 142/94; PULSE 84; RESP 18; O2SAT 96
== END 2019-05-11 08:39 | disposition home or self-care (01) ==
PROVIDERS: Emergency Provider Emergency Medicine; PCP Nurse Practitioner Family
DX: R10.2 Pelvic and perineal pain (principal)
CPT/HCPCS: 36415; 80053; 83690; 96365; 96375; 99284; 81003; 83605; 85025; J1885

== ENCOUNTER 2019-06-07 06:11 | Emergency (ER) | payer MEDICAID, SELFPAY ==
[2019-06-07] VITALS (13 sets, daily range): BP systolic 127–146; BP diastolic 89–100; PULSE 51–65; RESP 8–23; TEMP 36.9; O2SAT 96–98
--- NOTE | 2019-06-07 06:31 | ED.GENADUL_ITS ---
Discharge Plan Disposition Patient Disposition: HOME Condition: Stable Discharge Details Chief Complaint: Chest Pain Clinical Impression: Left shoulder pain Primary Care Provider: Nanci Spivey ED Provider: Dung Valero Home Meds and New Rx's Prescriptions: New cyclobenzaprine 10 mg tablet 10 mg PO TID PRN (Reason: muscle spasm) Qty: 20 RF: 0 Continued omeprazole 40 MG capsule,delayed release(DR/EC) 40 mg PO DAILY RF: 0 sumatriptan succinate [Imitrex] 25 mg tablet 25 mg PO ONCE PRNRF: 0 ibuprofen [IBU-200] 200 mg tablet 600 mg PO Q8H PRN (Reason: pain) Qty: 60 RF: 0 promethazine 25 mg tablet 25 mg PO TID PRN (Reason: nausea and vomiting) Qty: 15 RF: 0 Discharge Instructions Instructions: Shoulder Pain (ED) Additional Instructions: do not drink alcohol or drive if you take the cyclobenzaprine follow up with your primarycare provider if pain continues in a week if you feel more ill, have worsening shortness of breath or pain return to the emergency department Medical Decision Making 49 yo male who has hx of gerd, no alcohol or drug use, smoker for ~1 year and quit 30 years ago, no prior cardiac history, comes in with left upper chest and shoulder pain since yesterday. 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 He didn't have a fall or other trauma but thinks he may have strained the shoulder. He has pain in left upper chest and the left shoulder and has pain when trying to move the shoulder. I am able to fully range the shoulder passively though with pain. No n/v, no back pain, normal vascular exam and normal sensation. Suspect this is a strain vs rotator cuff injury vs muscle spasm. His heart score is 2 and seems musculoskeletal, ekg unchanged from prior, will send troponin and if negative feel he can f/u with pcp. Wells low perc negative so doubt PE. Normal vascular exam and no tearing back pain so doubt dissection. pt declined muscle relaxer as he is driving. His lab work shows no acute findings and since pain started last night do not feel delta troponin indicated. Suspect strain vs spasm of the shoulder. Xray negative on my read, if radiology agrees will d/c and have him f/u with pcp and return precauions given Differential Diagnosis Differential Diagnosis: strain, spasm, nstemi Medical Records Medical records reviewed: Yes I reviewed the patient's medical records. Imaging Data Radiologic Study: Attestation: I personally reviewed and interpreted this imaging study as follows: Radiologist's impression: no acute findings on shoulder xray Radiologic Study #2: Attestation: I personally reviewed and interpreted this imaging study as follows: Imaging: X-Ray Radiologist's impression: no acute findingson chest xray ECG Data Attestation: I personally reviewed and interpreted this ECG (s) as follows: Prior ECG tracings: available for review Interpretation: sinus bradycardia, rate of 56, qtc 421, no acute changes from prior ekg's HPI General Mode of arrival: ambulatory . Date/Time Provider Initiated Documentation: 06/07/19 06:12 . Limitations to Documentation: no limitations . Information obtained by: patient . History of Present Illness 49 year old M presents to the emergency department with the chief complaint of left shoulder and chest pain, described as moderate, Patient started experiencing this day(s) (1) and it has been constant. No relieving factors improve symptom(s), Other factors that worsen symptoms (moving left shoulder) . Patient did receive the following treatments prior to arrival, none Related Data Home Medications Medication Instructions Recorded Confirmed omeprazole 40 mg PO DAILY 09/06/18 06/07/19 sumatriptan succinate [Imitrex] 25 mg PO ONCE PRN 05/01/19 06/07/19 ibuprofen [IBU-200] 600 mg PO Q8H PRN #60 tab 05/11/19 06/07/19 promethazine 25 mg PO TID PRN #15 tab 05/11/19 06/07/19 cyclobenzaprine 10 mg PO TID PRN #20 tab 06/07/19 Previous Rx's Medication Instructions Recorded ibuprofen [IBU-200] 600 mg PO Q8H PRN #60 tab 05/11/19 promethazine 25 mg PO TID PRN #15 tab 05/11/19 cyclobenzaprine 10 mg PO TID PRN #20 tab 06/07/19 Allergies Allergy/AdvReac Type Severity Reaction Status Date / Time No Known Allergies Allergy Unverified 06/07/19 06:17 General Stated Complaint: Chest Pain NEELIMA: 3 Review of Systems All systems reviewed & are unremarkable except as noted in HPI and below Constitutional Constitutional: Denies chills, Denies fever(s) and Denies weakness Cardiovascular Cardiovascular: Denies dyspnea Respiratory Respiratory: Denies cough and Denies dyspnea Gastrointestinal Gastrointestinal: Denies abdominal pain, Denies nausea and Denies vomiting Musculoskeletal Musculoskeletal: Denies joint swelling Neurologic Neurologic: Denies weakness Psychiatric Psychiatric: Denies depression [facility] Social History Smoking/Tobacco Use Status: Never Alcohol Intake: current Alcohol Intake frequency: a few times a week Drug use: Occasionally Substance use type: marijuana Do you feel safe at home: Yes Do you feel safe in your relationship?: Yes Exam Const General: no acute distress Orientation: alert HENMT Head: normal to inspection Ears: external ears normal General nose exam: external nose normal Mouth: moist mucous membranes Eyes General: appearance normal, both eyes and all related structures Neck Neck: normal visual inspection Resp Effort & Inspection: normal respiratory effort and able to speak in complete sentences Cardio Rate: regular rate Skin General skin exam: no rashes or lesions noted Neuro General: alert and oriented x3 Extrem General: normal to inspection Psych Mental Status: mental status grossly normal Course Vital Signs Vital signs: Vital Signs Temperature 36.9 C 06/07/19 06:15 Pulse 61 06/07/19 06:15 Respiratory Rate 18 06/07/19 06:15 Blood Pressure 136/90 06/07/19 06:15 Pulse Oximetry 98 06/07/19 06:15 Temperature 36.9 C 06/07/19 06:15 Temperature Source Skin 06/07/19 06:15 Pulse 61 06/07/19 06:15 Respiratory Rate 16 06/07/19 06:19 Respiratory Effort 06/07/19 06:19 Blood Pressure 136/90 06/07/19 06:15 Pulse Oximetry 98 06/07/19 06:15 Oxygen Delivery Method Room Air 06/07/19 06:15 Oxygen Flow Rate 0 06/07/19 06:15 Pain Level 8 06/07/19 06:15
[2019-06-07 06:40] LABS: Abs Immature Grans 0.03 k/cumm (0.0-0.09); Absolute Basophil Count 0.06 k/cumm (0.0-0.2); Absolute Eosinophil Count 0.18 k/cumm (0.0-0.7); Absolute Lymphocyte Count 1.89 k/cumm (1.2-3.4); Absolute Monocyte Count 0.37 k/cumm (0.11-0.7); Absolute Neutrophil Count 2.19 k/cumm (1.2-6.7); Basophils % 1.3; Eosinophils % 3.8; HCT 42.7 % (40.0-50.0); HGB 15.4 g/dL (13.5-17.5); Immature Grans % 0.6 %; Mean Corp. HGB Concentration 36.1 g/dL (32.0-36.0); Mean Corpuscular Hemoglobin 30.7 pg (27.0-33.0); Mean Corpuscular Volume 85.2 fL (80-95); Mean Platelet Volume 9.3 fL (8.0-11.0); Monocytes % 7.8; Neutrophils % 46.5; Platelet Count 247 x1000/uL (130-400); RBC 5.01 m/cumm (4.50-6.00); RBC Distribution Width 12.5 % (11.8-14.1); White Blood Cell Count 4.72 k/cumm (4.4-10.8)
[2019-06-07] MEDS: Aspirin 81 MG CHEW 324 MG CH (06:41)
--- NOTE | 2019-06-07 06:50 | DI.RAD_ITS ---
EXAM: XR SHOULDER LT COMPLETE 2+V CLINICAL HISTORY: pain in left shoulder. TECHNIQUE: 2D digital imaging was performed. COMPARISON: No exams were available for comparison FINDINGS: BONES: No acute fracture is present. No bony destructive lesion is seen. JOINTS: No dislocation present. SOFT TISSUE: Normal. IMPRESSION: Unremarkable radiographs of the left shoulder. DATA REPOSITORY: RADIATION DOSE DELIVERED:
--- NOTE | 2019-06-07 06:50 | DI.RAD_ITS ---
EXAM: XR CHEST 2V PA LATERAL CLINICAL HISTORY: chest pain TECHNIQUE: 2D digital imaging was performed. COMPARISON: CHEST 2 VIEWS PA,LAT from 11/13/2017 FINDINGS: MEDIASTINUM: Normal. HEART: Normal. PULMONARY VASCULATURE: Normal. LUNGS: Clear. PLEURAL SPACE: No pleural effusion or pneumothorax. BONE:Normal. OTHER FINDINGS:Normal. IMPRESSION: No acute pulmonary findings. DATA REPOSITORY: RADIATION DOSE DELIVERED:
[2019-06-07 07:03] LABS: ALT 25 U/L (16-63); AST 16 U/L (15-37); Albumin 3.8 g/dL (3.4-5.0); Alkaline Phosphatase 91 U/L (46-116); BUN 16 mg/dL (7-18); Bilirubin, Total 0.8 mg/dL (0.2-1.0); CREATININE 1.15 mg/dL (0.70-1.30); Calcium 8.4 mg/dL (8.5-10.1); Chloride 106 mmol/L (98-107); Glucose 115 mg/dL (74-106); Lipase 83 U/L (73-393); Magnesium 1.6 mg/dL (1.8-2.4); NT-proBNP 18 pg/mL (<300); PTT Activated 26.1 sec (21.0-31.4); Potassium 3.8 mmol/L (3.5-5.1); Prothrombin Time 10.5 sec (9.3-11.0); Sodium 141 mmol/L (136-145); Total Protein 6.8 g/dL (6.4-8.2)
[2019-06-07 07:06] LABS: Troponin I < 0.05 ng/Ml (<0.06)
--- NOTE | 2019-06-07 07:24 | DI.VRAD_ITS ---
PROCEDURE INFORMATION: Exam: XR Left Shoulder Exam date and time: 06/07/2019 6:51 AM Age: 49 years old Clinical indication: Patient HX: Left shoulder pain radiating down, no trauma TECHNIQUE: Imaging protocol: XR Left shoulder. Views: 2 or more views. COMPARISON: No relevant prior studies available. FINDINGS: Bones/joints: Normal. Soft tissues: Normal. IMPRESSION: No acute findings. Dictated and Authenticated by: Braxton Singh MD. Ordering:LADI Razo MD
--- NOTE | 2019-06-07 07:28 | DI.VRAD_ITS ---
PROCEDURE INFORMATION: Exam: XR Chest, 2 Views Exam date and time: 06/07/2019 6:48 AM Age: 49 years old Clinical indication: Left-sided chest pain; Patient HX: Chest pain on left more than right TECHNIQUE: Imaging protocol: XR of the chest Views: 2 views. COMPARISON: No relevant prior studies available. FINDINGS: Lungs: Nonspecific mild central interstitial prominence. Pleural space: Unremarkable. No pleural effusion. No pneumothorax. Heart/Mediastinum: Unremarkable. No cardiomegaly. Bones/joints: Unremarkable. IMPRESSION: Nonspecific mild central interstitial prominence. Dictated and Authenticated by: Braxton Singh MD. Ordering:LADI Razo MD
== END 2019-06-07 08:45 | disposition home or self-care (01) ==
PROVIDERS: Emergency Provider Emergency Medicine; PCP Nurse Practitioner Family
DX: M25.512 Pain in left shoulder (principal); M70.812 Other soft tissue disorders related to use, overuse and pressure, left shoulder
CPT/HCPCS: 36415; 80053; 83690; 93005; 99285; 71046; 73030; 83735; 83880; 84484; 85025; 85610; 85730; 93010; 99284; J3360

== ENCOUNTER 2019-07-13 12:49 | Emergency (ER) | payer MEDICAID, SELFPAY ==
[2019-07-13 12:54] VITALS: BP 148/94; PULSE 73; TEMP 37; O2SAT 97
--- NOTE | 2019-07-13 13:00 | DI.US_ITS ---
TECHNIQUE: Ultrasound abdomen performed using standard protocol. COMPARISON: US abdomen limited from 11/11/2018 FINDINGS: ABDOMINAL AORTA AND IVC: Visualized portions normal caliber. PANCREAS: Normal where visualized. LIVER: Normal. Hepatopedal flow in the Portal Vein. GALLBLADDER: No evidence of cholelithiasis. No evidence of wall thickening. No pericholecystic fluid identified. There are a few small echogenic nodules fixed along the wall of the gallbladder. The lar gest measures 0.5 cm. These are most suggestive of gallbladder polyps. BILIARY SYSTEM: Common bile duct measures 4 mm. No intrahepatic biliary ductal dilation. VALENTINE'S SIGN: Negative. KIDNEYS: The right kidney is unremarkable. No evidence of renal calculi. No evidence of hydronephros is. No renal mass or cyst identified. ASCITES: None seen. IMPRESSION: Gallbladder polyps otherwise unremarkable limited abdominal ultrasound. DATA REPOSITORY:
[2019-07-13 13:15] LABS: Lactate 1.1 mmol/L (0.6-1.4)
--- NOTE | 2019-07-13 13:15 | ED.GENADUL_ITS ---
Discharge Plan Disposition Patient Disposition: HOME Condition: Stable Discharge Details Chief Complaint: Abd Prob Clinical Impression: Polyp of gallbladder Primary Care Provider: Nanci Spivey ED Provider: Judy Le Home Meds and New Rx's Prescriptions: New dicyclomine 10 mg capsule 10 mg PO BID PRN (Reason: stomach upset) Qty: 10 RF: 0 Continued omeprazole 40 MG capsule,delayed release(DR/EC) 40 mg PO DAILY RF: 0 sumatriptan succinate [Imitrex] 25 mg tablet 25 mg PO ONCE PRNRF: 0 ibuprofen [IBU-200] 200 mg tablet 600 mg PO Q8H PRN (Reason: pain) Qty: 60 RF: 0 promethazine 25 mg tablet 25 mg PO TID PRN (Reason: nausea and vomiting) Qty: 15 RF: 0 cyclobenzaprine 10 mg tablet 10 mg PO TID PRN (Reason: muscle spasm) Qty: 20 RF: 0 Discharge Instructions Instructions: Biliary Colic (ED), Abdominal Pain (ED) Additional Instructions: Follow up with primary care provider in 3-5 days. Return to ED sooner if any worsening or concerns. Increase oral fluids. Follow-up with surgery regarding gallbladder. You have some gallbladder polyps today. He also have an elevated lipase at 583. Call Dr. Martinez's office to be seen in the next week. Take medications as directed. Referrals: Elvi Reed MD [ [facility] STAFF PHYSICIAN] - Nanci Spivey [Primary Care Provider] - Medical Decision Making 49-year-old male presents with right upper quadrant abdominal pain he reports that it radiates from his back up to his friend times last 3 days associated with nausea and diarrhea. Denies vomiting. History of laparoscopic exploratory abdominal surgery in 2008 and appendectomy. He denies fever chills, no problems urinating or dysuria. 1408: Spoke with [facility] for preliminary, result positive Gallbladder polyps. no evidence of cholecystitis. Upon patient evaluation he is still complaining of right upper quadrant abdominal pain. 2 mg morphine ordered. For total of [address] abdomen pelvis with IV contrast ordered due to elevated lipase of 583, gallbladder polyps to rule out any diverticulosis, diverticulitis pancreatitis involvement or any other explanation for his abdominal pain. ECHNIQUE: Ultrasound abdomen performed using standard protocol. COMPARISON: US abdomen limited from 11/11/2018 FINDINGS: ABDOMINAL AORTA AND IVC: Visualized portions normal caliber. PANCREAS: Normal where visualized. LIVER: Normal. Hepatopedal flow in the Portal Vein. GALLBLADDER: No evidence of cholelithiasis. No evidence of wall thickening. No pericholecystic fluid identified. There are a few small echogenic nodules fixed along the wall of the gallbladder. The largest measures 0.5 cm. These are most suggestive of gallbladder polyps. BILIARY SYSTEM: Common bile duct measures 4 mm. No intrahepatic biliary ductal dilation. KLINE'S SIGN: Negative. KIDNEYS: The right kidney is unremarkable. No evidence of renal calculi. No evidence of hydronephrosis. No renal mass or cyst identified. ASCITES: None seen. IMPRESSION: Gallbladder polyps otherwise unremarkable limited abdominal ultrasound. CONTRAST MATERIAL: Intravenous: Omnipaque 350 Contrast volume:100 mL Oral: No COMPARISON: CT ABDOMEN PELVIS WO/W from 04/21/2019 FINDINGS: ABDOMEN: Lung Bases: There are 2 stable noncalcified pulmonary nodules in the left lower lobe. Liver: Normal density. No measurable mass. Portal, Superior Mesenteric, and Splenic Veins: Unremarkable. Gallbladder and Biliary Tract: No radiodense calculus or dilation. Pancreas: Normal density, no abnormal calcifications or inflammatory process. Spleen: Normal. Adrenals: No masses seen. Kidneys: Normal size, contour and axis. No radiodense stones or obstructive uropathy. No masses seen. There is a stable cyst on the right kidney. Abdominal Aorta: Abdominal portion non-dilated. Bowel: No obstruction or bowel wall thickening. Patient is status post appendectomy. There is colonic diverticulosis but no evidence of acute diverticulitis. Peritoneal Cavity: No ascites, collection or mesenteric inflammatory response. Lymph Nodes: Within normal limits. Bones: Unremarkable. Soft Tissues: Unremarkable. PELVIS: Bladder: Symmetric distention, no gross wall thickening. Reproductive Organs: Unremarkable as visualized. Lymph Nodes: Within normal limits. Bones: Within normal limits. IMPRESSION: No acute abdominal or pelvic process. The findings were discussed with the emergency department on the date of the examination. Patient discharged with instructions to follow-up with surgery. Prescription given for dicyclomine p.o. Patient received a GI cocktail prior to discharge. HPI General Mode of arrival: ambulatory . Date/Time Provider Initiated Documentation: 07/13/19 13:01 . Limitations to Documentation: no limitations . Information obtained by: patient . HPI Narrative: 49-year-old male presents with right upper quadrant abdominal pain he reports that it radiates from his back up to his friend times last 3 days associated with nausea and diarrhea. Denies vomiting. History of laparoscopic exploratory abdominal surgery in 2008 and appendectomy. He denies fever chills, no problems urinating or dysuria. Related Data Home Medications Medication Instructions Recorded Confirmed omeprazole 40 mg PO DAILY 09/06/18 07/13/19 sumatriptan succinate [Imitrex] 25 mg PO ONCE PRN 05/01/19 07/13/19 ibuprofen [IBU-200] 600 mg PO Q8H PRN #60 tab 05/11/19 07/13/19 promethazine 25 mg PO TID PRN #15 tab 05/11/19 07/13/19 cyclobenzaprine 10 mg PO TID PRN #20 tab 06/07/19 07/13/19 dicyclomine 10 mg PO BID PRN #10 cap 07/13/19 Previous Rx's Medication Instructions Recorded ibuprofen [IBU-200] 600 mg PO Q8H PRN #60 tab 05/11/19 promethazine 25 mg PO TID PRN #15 tab 05/11/19 cyclobenzaprine 10 mg PO TID PRN #20 tab 06/07/19 dicyclomine 10 mg PO BID PRN #10 cap 07/13/19 Allergies Allergy/AdvReac Type Severity Reaction Status Date / Time No Known Allergies Allergy Unverified 07/13/19 12:59 General Stated Complaint: Abd Prob NEELIMA: 3 Review of Systems Narrative: Constitutional: Negative for weight loss, alert and oriented, well groomed, normal body habitus, appears uncomfortable. HEENT: Denies trauma, headaches, blurry vision, nasal discharge, sore throat, trouble swallowing. Chest: Denies chest pain, palpitations, irregular rhythm, hypertension. Respiratory: Denies Shortness of breath, cough, hemoptysis. GI: Denies vomiting, positive nausea and diarrhea, reports positive abdominal pain. : Denies dysuria, hematuria, positive right flank pain. Rectal bleeding. Neuro: Denies dizziness, blurry vision, weakness, syncope, headache or facial numbness. Hematologic: Denies easy bruising, intolerance to heat or cold, hair loss. [facility] Medical History Depression (Chronic) Diverticulitis Gastric ulcer (Chronic) GERD (gastroesophageal reflux disease) (Chronic) Hiatal hernia (Chronic) History of urinary urgency (Acute) Surgical History Appendectomy Colonoscopy - MAC (05/13/17) EGD - MAC (05/13/17) wrist surgery Family History Grandfather No problems noted. Social History Smoking/Tobacco Use Status: Never Alcohol Intake: current Alcohol Intake frequency: a few times a month Drug use: Occasionally Substance use type: marijuana Do you feel safe at home: Yes Do you feel safe in your relationship?: Yes Exam Narrative Exam Narrative: Constitutional: Alert and oriented x3. Appears stated age. Normal body habitus. Head: Normocephalic, no trauma. Eyes: Pupils PERRLA, Red reflex noted, EOM's intact. Eyelids symmetrical without lesions, discharge, or swelling. ENT: Bilateral TM's WNL, External ear normal to inspection, no mastoid TTP, swelling, or erythema, Nasal turbinates WNL, no nasal discharge. Normal dentit ion, Posterior pharynx WNL, no exudate. Chest: RRR, Normal S1, S2, distal pulses intact. Resp: Lungs clear to auscultation bilaterally, no wheezes, rales, or rhonchi. Abdominal: Right upper quadrant tender to palpation, positive Kline sign. Abdomen is soft. Hypoactive bowel sounds all 4 quadrants. No CVA tenderness. Musculoskeletal: Normal gait, 5/5 strength to all four extremities. Skin: No suspicious rashes or lesions. Capillary refill less than 2 sec. Neurologic: Cranial nerves II-XII intact. Alert and oriented x 3. DTR's intact. Hematologic/Lymphatic: No ecchymosis, no lymphadenopathy. Course Vital Signs Vital signs: Vital Signs Temperature 37.0 C 07/13/19 12:54 Pulse 73 07/13/19 12:54 Blood Pressure 148/94 H 07/13/19 12:54 Pulse Oximetry 97 07/13/19 12:54 Temperature 37.0 C 07/13/19 12:54 Temperature Source Skin 07/13/19 12:54 Pulse 73 07/13/19 12:54 Respiratory Effort Non-Labored 07/13/19 12:57 Blood Pressure 148/94 H 07/13/19 12:54 Blood Pressure Position Sitting 07/13/19 12:54 Pulse Oximetry 97 07/13/19 12:54 Oxygen Delivery Method Room Air 07/13/19 12:54 Oxygen Flow Rate 0 07/13/19 12:54 Pain Level 5 07/13/19 12:54
[2019-07-13 13:16] LABS: Abs Immature Grans 0.05 k/cumm (0.0-0.09); Absolute Basophil Count 0.05 k/cumm (0.0-0.2); Absolute Eosinophil Count 0.16 k/cumm (0.0-0.7); Absolute Lymphocyte Count 2.85 k/cumm (1.2-3.4); Absolute Monocyte Count 0.43 k/cumm (0.11-0.7); Absolute Neutrophil Count 2.52 k/cumm (1.2-6.7); Basophils % 0.8; Eosinophils % 2.6; HGB 16.1 g/dL (13.5-17.5); Immature Grans % 0.8 %; Mean Corp. HGB Concentration 35.8 g/dL (32.0-36.0); Mean Corpuscular Hemoglobin 30.8 pg (27.0-33.0); Mean Corpuscular Volume 86.2 fL (80-95); Mean Platelet Volume 9.4 fL (8.0-11.0); Monocytes % 7.1; Neutrophils % 41.7; Platelet Count 240 x1000/uL (130-400); RBC 5.22 m/cumm (4.50-6.00); RBC Distribution Width 12.4 % (11.8-14.1); White Blood Cell Count 6.06 k/cumm (4.4-10.8)
[2019-07-13] MEDS: Lactated Ringers 1,000 ML 125 ML IV (13:20)
[2019-07-13] MEDS: Ondansetron 4 MG/2 ML VIAL IVP (13:21)
[2019-07-13] MEDS: MORPHine 10 MG/ML VIAL 2 MG IVP (13:23)
[2019-07-13 13:35] LABS: ALT 37 U/L (16-63); AST 18 U/L (15-37); Albumin 3.8 g/dL (3.4-5.0); Alkaline Phosphatase 99 U/L (46-116); Anion Gap 9.3 mmol/L (3-11); BUN 15 mg/dL (7-18); Bilirubin, Total 0.6 mg/dL (0.2-1.0); CO2 26.7 mmol/L (21.0-32.0); CREATININE 1.11 mg/dL (0.70-1.30); Calcium 8.7 mg/dL (8.5-10.1); Chloride 105 mmol/L (98-107); Glucose 117 mg/dL (74-106); Lipase 538 U/L (73-393); Potassium 3.7 mmol/L (3.5-5.1); Sodium 141 mmol/L (136-145); Total Protein 6.9 g/dL (6.4-8.2)
[2019-07-13 13:37] LABS: Troponin I < 0.05 ng/Ml (<0.06)
--- NOTE | 2019-07-13 14:33 | DI.CT_ITS ---
EXAM: CT ABDOMEN PELVIS W CLINICAL HISTORY: RUQ abdominal pain, gallbladder polyps TECHNIQUE: Imaging Protocol: Axial computed tomography images with coronal and sagittal reformatted images were created and reviewed CONTRAST MATERIAL: Intravenous: Omnipaque 350 Contrast volume:100 mL Oral: No COMPARISON: CT ABDOMEN PELVIS WO/W from 04/21/2019 FINDINGS: ABDOMEN: Lung Bases: There are 2 stable noncalcified pulmonary nodules in the left lower lobe. Liver: Normal density. No measurable mass. Portal, Superior Mesenteric, and Splenic Veins: Unremarkable. Gallbladder and Biliary Tract: No radiodense calculus or dilation. Pancreas: Normal density, no abnormal calcifications or inflammatory process. Spleen: Normal. Adrenals: No masses seen. Kidneys: Normal size, contour and axis. No radiodense stones or obstructive uropathy. No masses seen. There is a stable cyst on the right kidney. Abdominal Aorta: Abdominal portion non-dilated. Bowel: No obstruction or bowel wall thickening. Patient is status post appendectomy. There is coloni c diverticulosis but no evidence of acute diverticulitis. Peritoneal Cavity: No ascites, collection or mesenteric inflammatory response. Lymph Nodes: Within normal limits. Bones: Unremarkable. Soft Tissues: Unremarkable. PELVIS: Bladder: Symmetric distention, no gross wall thickening. Reproductive Organs: Unremarkable as visualized. Lymph Nodes: Within normal limits. Bones: Within normal limits. IMPRESSION: No acute abdominal or pelvic process. The findings were discussed with the emergency department on the date of the examination. RADIATION DOSE DELIVERED: DATA REPOSITORY: All CT scans at this facility are submitted to the National Radiology Data Registry (NRDR) Dose Index Registry (DIR) with the [employer] (ACR). RADIATION OPTIMIZATION: All CT scans at this facility use at least one of these dose optimization te chniques: automated exposure control; mA and/or kV adjustment per patient size (includes targeted exa ms where dose is matched to clinical indication); or iterative reconstruction.
[2019-07-13] MEDS: Normal Saline - Diluent 50 ML VIAL IV (14:34)
[2019-07-13] MEDS: Omnipaque 350 MG/ML 100 ML BTL IJ (14:34)
[2019-07-13] MEDS: PIPERACILLIN/TAZO 4.5 GM in Normal Saline 100 ML IVPB (14:37)
[2019-07-13 14:42] VITALS: BP 142/97; PULSE 56; TEMP 37.1; O2SAT 96
== END 2019-07-13 15:31 | disposition home or self-care (01) ==
LOC: ER 15:18
PROVIDERS: Student in an Organized Health Care Education/Training Program; Emergency Provider Registered Nurse Emergency; PCP Nurse Practitioner Family
DX: K82.4 Cholesterolosis of gallbladder (principal); R10.11 Right upper quadrant pain
CPT/HCPCS: 80053; 83690; 96361; 96374; 96375; 96376; 99285; 74177; 76705; 83605; 84484; 85025; 99284; J2270; J2405; J2543; J3490

== ENCOUNTER 2019-07-20 08:16 | Outpatient (CLI) | payer MEDICAID, SELFPAY ==
[2019-07-21 13:55] LABS: COVID-19 RT-PCR Result Negative (Negative)
== END 2019-07-20 08:36 ==
PROVIDERS: PCP Nurse Practitioner Family; Visit Provider Surgery
DX: Z11.59 Encounter for screening for other viral diseases (principal); Z01.818 Encounter for other preprocedural examination
CPT/HCPCS: U0003

== ENCOUNTER 2019-07-26 06:50 | Day surgery (SDC) | payer MEDICAID, SELFPAY ==
[2019-07-26] VITALS (12 sets, daily range): BP systolic 132–180; BP diastolic 76–113; PULSE 48–70; RESP 10–18; TEMP 36.4–37.1; O2SAT 93–100
[2019-07-26] MEDS: Lactated Ringers 1,000 ML 80 ML IV (08:00)
[2019-07-26] MEDS: ceFAZolin 2 GM/50 ML BAG IVPB (08:15)
--- NOTE | 2019-07-26 09:00 | GB_PTH ---
PATIENT: Malachi Senior LOC: [facility] U#:[id number] AGE/SX: 49/M ROOM: RE07/26/[address]: Elvi Reed MD : 1970 BED: DIS: 07/26/2019 SPEC #: [id number] RECD: 07/26/19 12:09 STATUS: MARKOS RUSHING #: [id number] DOE: 07/26/19 09:[address]: Elvi Reed DEPT: Surgical Specimen RECD BY: Timothy Ordonez ENTERED: 07/26/19 12:09 SP TYPE: GB OTHR DR: Nanci Spivey Tissues: 1 - GALLBLADDER Procedures: GROSS AND MICRO LEVEL 3 Comments: [id number]
--- NOTE | 2019-07-26 09:31 | W.PM.DSUDISC ---
Discharge Plan Disposition Patient Disposition: HOME Condition: Good Discharge Details Reason For Visit: Chronic cholecystitis Attending Provider: Elvi Reed Primary Care Provider: Nanci Spivey Home Meds and New Rx's Prescriptions: Continued omeprazole 40 MG capsule,delayed release(DR/EC) 40 mg PO DAILY RF: 0 sumatriptan succinate [Imitrex] 25 mg tablet 25 mg PO ONCE PRNRF: 0 ibuprofen [IBU-200] 200 mg tablet 600 mg PO Q8H PRN (Reason: pain) Qty: 60 RF: 0 dicyclomine 10 mg capsule 10 mg PO BID PRN (Reason: stomach upset) Qty: 10 RF: 0 Discharge Instructions Additional Instructions: The top bandage can be removed tomorrow. The steri strips will usually stick for about a week. When the edges start to curl up, they can be removed. It is okay to shower tomorrow, the water can run over the steri strips Do not swim or soak in a tub for two weeks Call for any concerns including fever, increased pain, vomiting, incision redness or drainage. Do not lift more than 15 pounds for two weeks. Walking and stairs are fine. Do not drive if on narcotic pain meds or if limited by pain. May use Tylenol alternating with ibuprofen for pain control. Ice is also an option. The maximum dose for Tylenol is 4000 mg/day. May use ibuprofen 800 mg every 8 hours as needed. If concerned about constipation, you may use a stool softener or milk of magnesia. Referrals: Elvi Reed MD [ [facility] STAFF PHYSICIAN] - (Return in 10 -14 days for a postop check) Activity:: Do not lift more than 15 pounds Remove Dressings/Wound Care:: 24 hours Shower/Bathe:: 24 hours Diet:: Low fat for two weeks Discharge Orders Discharge Orders: Discharge Order (Routine); Ordered 07/26/19 Ordered By: Elvi Reed DS: Diagnosis Discharge Diagnosis (1) Chronic cholecystitis: Status: Acute
--- NOTE | 2019-07-26 09:34 | W.PM.OP ---
Date of service: 07/26/19 Time of Service: 09:10 Operative Note Operative Note DATE OF PROCEDURE: 07/26/19 PRE-OP DIAGNOSIS: Chronic cholecystitis POST-OP DIAGNOSIS: same PROCEDURE: Laparoscopic cholecystectomy SURGEON: Elvi Reed PHOTOVOLTAIC INSTALLER: Antonina Wheeler ANESTHESIA: GETA and local Patient was transported to: PACU Patient's condition: stable Indications: This 49-year-old man presents with right upper quadrant pain that radiates to his back nausea and bloating. He had a CT scan of the abdomen pelvis that was normal. Gallbladder ultrasound showed polyps. His labs are unremarkable with exception of a mildly elevated lipase in the 500 range. Procedure Description: The patient was placed supine on the operative table and after induction of general anesthetic was prepped and draped sterilely. A 5 mm incision was made to the left of the umbilicus after injecting local anesthetic and the abdomen entered under direct visualization. A CO2 pneumoperitoneum was begun and he was placed in reverse Trendelenberg position. The epigastric and 2 lateral ports were placed under direct visualization after injecting local anesthetic. The gallbladder did not appear acutely inflamed. There were no visible liver abnormalities. The gallbladder fundus was grasped and pulled up over the liver. The gallbladder infundibulum was retracted laterally and the peritoneum overlying the triangle of Calot dissected free with hook cautery. The cystic duct and artery were isolated and visualized going directly onto the gallbladder. The common bile duct was visualized and avoided. The cystic duct was not dilated. The artery was clipped twice proximally, once distally and divided. One clip was applied to the proximal cystic duct, and 2 clips applied on the distal cystic duct and then the duct divided between. The gallbladder was dissected off the liver bed with hook cautery and removed through the epigastric incision in an Endo Catch bag. The operative site was inspected with no evidence of bleeding or bile leak. The CO2 was released out through the smoke evacuator and then the ports removed. The skin of the port sites was then closed with a 4-0 Monocryl subcuticular stitch. He tolerated the procedure well and was stable to recovery
[2019-07-26] MEDS: Ketorolac 15 MG/ML VIAL IVP (10:02)
[2019-07-26] MEDS: fentaNYL 100 MCG/2 ML VIAL IVP ×2 (10:03→10:30)
[2019-07-26] MEDS: HYDROcodone 5/Acetaminophen 325 TAB PO (12:20)
== END 2019-07-26 14:38 | disposition home or self-care (01) ==
PROVIDERS: PCP Nurse Practitioner Family; Visit Provider Surgery
PROC: 0FT44ZZ Resection of Gallbladder, Percutaneous Endoscopic Approach (ICD-10-PCS; CPT 47562; principal; 2019-07-26 08:00)
DX: K81.1 Chronic cholecystitis (principal)
CPT/HCPCS: 47562; 88304; J0360; J0690; J1885; J2001; J2250; J2405; J2704; J3010

== ENCOUNTER 2019-10-26 11:23 | Outpatient (REF) | payer MEDICAID, SELFPAY ==
[2019-10-26 18:43] LABS: HCT 45.6 % (40.0-50.0); HGB 15.9 g/dL (13.5-17.5); MCH 30.8 pg (27.0-33.0); MCHC 34.9 % (32.0-36.0); MCV 88.4 fL (80-95); MPV 10.3 fL (8.0-11.0); Platelet Count 254 10^3/uL (130-400); RBC 5.16 10^6/uL (4.36-5.78); RDW 11.5 % (11.8-14.1); RDW-SD 37.2 fL; WBC 5.77 10^3/uL (4.4-10.8)
[2019-10-26 19:06] LABS: ALT 24 U/L (16-63); AST 19 U/L (15-37); Albumin 4.1 g/dL (3.4-5.0); Alkaline Phosphatase 112 U/L (46-116); Anion Gap 8.2 mmol/L (3-11); BUN 17 mg/dL (7-18); Bilirubin, Total 0.4 mg/dL (0.2-1.0); CO2 26.8 mmol/L (21.0-32.0); CREATININE 1.19 mg/dL (0.70-1.30); Calcium 9.3 mg/dL (8.5-10.1); Chloride 106 mmol/L (98-107); Glucose 95 mg/dL (74-106); Potassium 4.1 mmol/L (3.5-5.1); Sodium 141 mmol/L (136-145); TSH (W/Ref FT4) 1.04 uIU/mL (0.36-3.74)
== END 2019-10-26 11:43 ==
LOC: NCHCN 11:23
PROVIDERS: PCP Nurse Practitioner Family; Visit Provider Nurse Practitioner Family
DX: R42 Dizziness and giddiness (principal)
CPT/HCPCS: 80053; 85027; 84443

== ENCOUNTER 2019-11-16 10:00 | Outpatient (CLI) | payer MEDICAID, SELFPAY | END 2019-11-16 10:20 | PROVIDERS: PCP Nurse Practitioner Family; Visit Provider Nurse Practitioner Family | DX: R07.9 Chest pain, unspecified (principal) | CPT/HCPCS: 93225 ==

== ENCOUNTER 2019-11-19 11:29 | Outpatient (CLI) | payer MEDICAID, SELFPAY ==
--- NOTE | 2019-11-19 13:09 | W.HOLTRPT ---
Date of service: 11/19/19 Time of Service: 13:09 Holter Monitor Report Referring Provider:: Atul Indications:: Chest pain Holter Monitor Note: This is a 48-hour Holter monitor ordered for indication of chest pain. ?Patient was normal sinus rhythm with majority recording with an average heart rate of 64 bpm. ?Patient no episodes of supraventricular tachycardia and 9 total PACs. ?There are no episodes of ventricular tachycardia and rare (0.2%) PVCs ?There were no episodes of atrial fibrillation, no pauses grade 3 seconds no evidence of high degree heart block.
== END 2019-11-19 11:49 ==
PROVIDERS: PCP Nurse Practitioner Family; Visit Provider Nurse Practitioner Family
DX: R07.9 Chest pain, unspecified (principal)
CPT/HCPCS: 93226

== ENCOUNTER 2020-01-28 18:15 | Outpatient (REF) | payer MEDICAID, SELFPAY ==
[2020-02-02 05:31] LABS: Patient Race White; SARS-CoV-2 RNA Undetected (Undetected)
== END 2020-01-28 18:35 ==
LOC: NCHCN 18:15
PROVIDERS: PCP Nurse Practitioner Family; Visit Provider Nurse Practitioner Family
DX: R19.7 Diarrhea, unspecified (principal)
CPT/HCPCS: U0003

== ENCOUNTER 2020-03-25 10:48 | Emergency (ER) | payer MEDICAID, SELFPAY ==
[2020-03-25 11:09] VITALS: BP 159/99; PULSE 72; RESP 16; TEMP 36.7; O2SAT 96
--- NOTE | 2020-03-25 11:15 | DI.RAD_ITS ---
EXAM: XR LUMBAR SPINE AP, LAT CLINICAL HISTORY: Low back pain after fall. TECHNIQUE: 2D digital imaging was performed. COMPARISON: CR LUMBAR SPINE COMPLETE from 08/15/2009 FINDINGS: BONES: No fracture or destructive lesion. Vertebral bodies are unremarkable. Facet degenerative lion es are seen at L4-5 and L5-S1. There are small endplate osteophytes at these levels. There are prom inent osteophytes projecting on the right at L 2 3. DISKS: Intervertebral disc spaces are maintained. ALIGNMENT: Lumbar spinal alignment is within normal limits. SOFT TISSUE: Surgical clips right upper quadrant. IMPRESSION: Degenerative changes. No acute abnormality. DATA REPOSITORY: RADIATION DOSE DELIVERED:
--- NOTE | 2020-03-25 11:23 | ED.GENADUL_ITS ---
Discharge Plan Disposition Patient Disposition: HOME Condition: Improving Discharge Details Clinical Impression: Lumbago Primary Care Provider: Nanci Spivey ED Provider: Rafael Almanza Home Meds and New Rx's Prescriptions: New prednisone 50 mg tablet 50 mg PO DAILY 5 Days Qty: 5 RF: 0 diazepam [Valium] 5 mg tablet 5 mg PO TID PRN (Reason: muscle spasm) Qty: 10 RF: 0 Continued omeprazole 40 MG capsule,delayed release(DR/EC) 40 mg PO DAILY RF: 0 sumatriptan succinate [Imitrex] 25 mg tablet 25 mg PO ONCE PRNRF: 0 ibuprofen [IBU-200] 200 mg tablet 600 mg PO Q8H PRN (Reason: pain) Qty: 60 RF: 0 ketorolac 10 mg tablet 10 mg PO RF: 0 Discontinued cyclobenzaprine 5 mg tablet 5 mg RF: 0 Discharge Instructions Instructions: Low Back Strain (ED) Additional Instructions: Please follow-up with physical therapy as prescribed. Take prednisone as prescribed. Continue Tylenol and/or ibuprofen as needed for pain and Valium, as prescribed if needed for spasm. Return for weakness or numbness of the lower extremity, difficulty with urination or defecation, or any other acute concerns. Stand Alone Forms: Physical Therapy Referral, Work Release Medical Decision Making 50-year-old male states he slipped in his bathroom at home 2 weeks ago and caught himself. Since that time he had lumbar back pain that radiates to both buttocks. States he was seen at [facility] on Friday and prescribed Flexeril. This is minimally helped what he feels are intermittent spasms that are worse with movement. No change to bowel or bladder habits. Patient given parenteral analgesia and referred for x-ray to rule out fracture or malalignment. This reveals L2-L3 bridging osteophytes, mild disc generation of L4, L5, L5, S1. Normal alignment. No compression deformity. Patient's pain is improved. Do feel he has mostly spasmodic pain. He may have slight disc bulge and benefit from the anti-inflammatory effects of a burst of prednisone. Additionally, will trial valium for spasm as well as referral to PT. HPI General Mode of arrival: ambulatory . Date/Time Provider Initiated Documentation: 03/25/20 10:53 . Limitations to Documentation: no limitations . Information obtained by: patient . History of Present Illness 50 year old M presents to the emergency department with the chief complaint of Low back pain for 2 weeks, described as moderate, and is localized to the back. Patient distal. Patient started experiencing this day(s) and it has been constant. No relieving factors improve symptom(s), No exacerbating factors reported . Patient notes no other symptoms.. Patient did receive the following treatments prior to arrival, NSAID and other (Flexeril) Related Data Home Medications Medication Instructions Recorded Confirmed omeprazole 40 mg PO DAILY 09/06/18 03/25/20 sumatriptan succinate [Imitrex] 25 mg PO ONCE PRN 05/01/19 03/25/20 ibuprofen [IBU-200] 600 mg PO Q8H PRN #60 tab 05/11/19 03/25/20 diazepam [Valium] 5 mg PO TID PRN #10 tab 03/25/20 ketorolac 10 mg PO 03/25/20 prednisone 50 mg PO DAILY 5 Days #5 tab 03/25/20 Previous Rx's Medication Instructions Recorded ibuprofen [IBU-200] 600 mg PO Q8H PRN #60 tab 05/11/19 diazepam [Valium] 5 mg PO TID PRN #10 tab 03/25/20 prednisone 50 mg PO DAILY 5 Days #5 tab 03/25/20 Allergies Allergy/AdvReac Type Severity Reaction Status Date / Time No Known Allergies Allergy Unverified 03/25/20 11:12 General Stated Complaint: Nk/Back Pain NEELIMA: 3 Review of Systems Narrative: 6 systems reviewed and otherwise negative. Normal bowel movements, normal urination. No numbness or weakness of the legs. Worse with ambulation, feels spasms. Minimally improved with Flexeril and NSAIDs. [facility] Medical History Depression Diverticulitis Gastric ulcer GERD (gastroesophageal reflux disease) Hiatal hernia History of urinary urgency Surgical History (Updated 07/26/19 @ 13:12 by Hortensia Young RN) Appendectomy Colonoscopy - MAC (05/13/17) EGD - MAC (05/13/17) S/P laparoscopic cholecystectomy (~07/26/19) wrist surgery Family History Grandfather No problems noted. Social History Smoking/Tobacco Use Status: Former Tobacco Use Smoking risk assessment performed?: Yes Alcohol Intake: current Alcohol Intake frequency: a few times a month Alcohol type: hard liquor Drug use: Occasionally Substance use type: marijuana Details: 07/25/19 last used Do you feel safe at home: Yes Do you feel safe in your relationship?: Yes Exam Narrative Exam Narrative: GEN: awake, alert, oriented 3. Pleasant, well groomed, interactive. HEAD: Normocephalic, atraumatic ENT: Mucous membranes moist, oropharynx unremarkable, External ear exam unremarkable EYES: PERRL, EOMI NECK: Full ROM, no NATY, no menigismus CHEST/RESP: Nontender, clear to auscultation bilateral, no wheeze/rhonchi/rales CARDIOVASCULAR: RRR, no murmur, rub dudley. 2+ Rad pulse bilateral ABDOMEN: Soft, nontender, no mass. +Bowel sounds Back: Tender in the lumbar spine without step-off or deformity. EXT: Full ROM, no edema, no rash, normal sensation including saddle distribution. Reflexes trace but symmetric at knee and ankle bilaterally. Motor is 5 out of 5 throughout the lower extremity. Neuro: Grossly normal neurologic exam, conversant, interactive. Psych: Speech fluent, thoughts congruent, affect normal Course Vital Signs Vital signs: Vital Signs Temperature 36.7 C 03/25/20 11:09 Pulse 72 03/25/20 11:09 Respiratory Rate 16 03/25/20 11:09 Blood Pressure 159/99 H 03/25/20 11:09 Pulse Oximetry 96 03/25/20 11:09 Temperature 36.7 C 03/25/20 11:09 Temperature Source Skin 03/25/20 11:09 Pulse 72 03/25/20 11:09 Respiratory Rate 16 03/25/20 11:09 Respiratory Effort Non-Labored 03/25/20 11:11 Blood Pressure 159/99 H 03/25/20 11:09 Blood Pressure Position Sitting 03/25/20 11:09 Pulse Oximetry 96 03/25/20 11:09 Oxygen Delivery Method Room Air 03/25/20 11:09 Oxygen Flow Rate 0 03/25/20 11:09 Pain Level 10 03/25/20 11:09
[2020-03-25] MEDS: HYDROmorphone 2 MG/ML VIAL IM (11:32)
--- NOTE | 2020-03-25 11:55 | DI.VRAD_ITS ---
PROCEDURE INFORMATION: Exam: XR Lumbosacral Spine, 2 or 3 Views Exam date and time: 03/25/2020 11:50 AM Age: 50 years old Clinical indication: Other: Low back pain after fall TECHNIQUE: Imaging protocol: XR of the lumbosacral spine, 2 or 3 views. COMPARISON: No relevant prior studies available. FINDINGS: Bones/joints: No compression deformities. Right lateral bridging osteophytes at L2-L3. Mild disc degeneration L4-L5 and L5-S1. Normal alignment. Soft tissues: Unremarkable. IMPRESSION: Degenerative changes. No compression deformity. Dictated and Authenticated by: Tanner Fitch MD. Ordering:CARY Hall MD
[2020-03-25 12:53] VITALS: BP 146/90; PULSE 70; RESP 16; TEMP 36.7; O2SAT 96
== END 2020-03-25 13:00 | disposition home or self-care (01) ==
PROVIDERS: Emergency Provider Emergency Medicine; PCP Nurse Practitioner Family
DX: M54.5 Low back pain (principal); W18.40XA Slipping, tripping and stumbling without falling, unspecified, initial encounter
CPT/HCPCS: 96372; 99284; 72100

== ENCOUNTER 2020-05-01 15:21 | Outpatient (REF) | payer MEDICAID, SELFPAY ==
[2020-05-02 15:09] LABS: COVID-19 RT-PCR UVMMC Result Negative (Negative)
== END 2020-05-01 15:41 ==
LOC: NCHCN 15:21
PROVIDERS: PCP Nurse Practitioner Family; Visit Provider Physician Assistant Medical
DX: R50.9 Fever, unspecified (principal)
CPT/HCPCS: U0003

== ENCOUNTER 2020-06-28 11:37 | Outpatient (REF) | payer MEDICAID, SELFPAY ==
[2020-06-28 13:37] LABS: HCT 40.7 % (40.0-50.0); HGB 14.6 g/dL (13.5-17.5); MCH 30.4 pg (27.0-33.0); MCHC 35.9 % (32.0-36.0); MCV 84.6 fL (80-95); MPV 10.4 fL (8.0-11.0); Platelet Count 245 10^3/uL (130-400); RBC 4.81 10^6/uL (4.36-5.78); RDW 11.9 % (11.8-14.1); RDW-SD 36.4 fL; WBC 5.79 10^3/uL (4.4-10.8)
[2020-06-28 14:09] LABS: ALT 26 U/L (16-63); AST 16 U/L (15-37); Albumin 3.7 g/dL (3.4-5.0); Alkaline Phosphatase 123 U/L (46-116); Anion Gap 3.6 mmol/L (3-11); BUN 19 mg/dL (7-18); Bilirubin, Total 0.4 mg/dL (0.2-1.0); CO2 24.4 mmol/L (21.0-32.0); CREATININE 1.3 mg/dL (0.70-1.30); Calcium 8.5 mg/dL (8.5-10.1); Chloride 108 mmol/L (98-107); Estimated GFR 58.43 (mL/min/1.73m2); Glucose 130 mg/dL (74-106); Potassium 3.8 mmol/L (3.5-5.1); Sodium 136 mmol/L (136-145); Total Protein 6.5 g/dL (6.4-8.2)
[2020-06-29 16:28] LABS: COVID-19 RT-PCR UVMMC Result Negative (Negative)
== END 2020-06-28 11:38 | disposition home or self-care (01) ==
LOC: NCHCN 11:37
PROVIDERS: PCP Nurse Practitioner Family; Visit Provider Physician Assistant
DX: K52.9 Noninfective gastroenteritis and colitis, unspecified (principal); Z20.822 Contact with and (suspected) exposure to COVID-19; J06.9 Acute upper respiratory infection, unspecified
CPT/HCPCS: 80053; 85027; U0003

== ENCOUNTER 2020-07-14 11:24 | Outpatient (REF) | payer MEDICAID, SELFPAY ==
[2020-07-15 02:37] LABS: COVID-19 RT-PCR UVMMC Result Negative (Negative)
== END 2020-07-14 11:25 | disposition home or self-care (01) ==
LOC: NCHCN 11:24
PROVIDERS: PCP Nurse Practitioner Family; Visit Provider Nurse Practitioner Family
DX: Z20.822 Contact with and (suspected) exposure to COVID-19 (principal); R19.7 Diarrhea, unspecified
CPT/HCPCS: U0003

== ENCOUNTER 2020-08-07 11:00 | Observation (INO) | payer MEDICAID, SELFPAY ==
[2020-08-07] VITALS (80 sets, daily range): BP systolic 121–205; BP diastolic 73–110; PULSE 39–59; RESP 6–25; TEMP 35.9–36.5; O2SAT 89–100
--- NOTE | 2020-08-07 11:00 | RT.EKG_ITS ---
APPROVED REPORT Exam: Resting ECG Reason for Exam: epigastric pain Patient Location: E HR:51 bpm ECG Measurements Heart Rate 51 AXIS OR 227 P 7 QRSd 83 QRS 27 QT 438 T 16 QTc 405 Conclusion Sinus bradycardia...rate< 60 Prolonged OR interval...OR >210, V-rate 50- 90 sinus bradycardia at 51, OR interval 227, normal axis, no acute ischemic changes, nondiagnostic EKG
[2020-08-07] MEDS: Normal Saline 1,000 ML 1000 ML IV ×2 (11:15→13:00)
[2020-08-07] MEDS: Normal Saline Flush 10 ML SYR IVP ×3 (11:15→20:26)
[2020-08-07 11:27] LABS: Abs Immature Grans 0.05 10^3/uL (0.0-0.06); Absolute Basophil Count 0.08 10^3/uL (0.0-0.2); Absolute Eosinophil Count 0.11 10^3/uL (0.0-0.7); Absolute Lymphocyte Count 2.53 10^3/uL (1.2-3.4); Absolute Monocyte Count 0.54 10^3/uL (0.1-0.8); Absolute Neutrophil Count 3.69 10^3/uL (1.2-6.7); Basophils % 1.1; Eosinophils % 1.6; HCT 45.4 % (40.0-50.0); HGB 15.7 g/dL (13.5-17.5); Immature Grans % 0.7; Lymphocytes % 36.1; MCH 30.1 pg (27.0-33.0); MCHC 34.6 % (32.0-36.0); MPV 9.1 fL (8.0-11.0); Monocytes % 7.7; Neutrophils % 52.8; Nucleated RBC 0 %; Platelet Count 213 10^3/uL (130-400); RBC 5.22 10^6/uL (4.36-5.78); RDW 12.1 % (11.8-14.1); RDW-SD 38.8 fL
--- NOTE | 2020-08-07 11:34 | ED.GENADUL_ITS ---
Discharge Plan Disposition Patient Disposition: [facility] INPATIENT Condition: Stable Discharge Details Clinical Impression: Chest pain Admit Date/Time: 08/07/20 17:19 Admit Provider: Ruth Carter Attending Provider: Ruth Carter Primary Care Provider: Nanci Spivey ED Provider: Dung Valero Discharge Data Discharge Date/Time-TO BE ENTERED AT DEPARTURE: 08/07/20 17:59 Medical Decision Making <Ashely Williamson MD - Last Filed: 08/09/20 08:52> Malachi Senior is a 50-year-old man who presented to the emergency department with 2 days of left upper quadrant pain radiating throughout his abdomen and myron ateral flanks accompanied by vomiting and diarrhea. On exam patient looks somewhat uncomfortable but otherwise well and nontoxic. There is diffuse tenderness to palpation of the abdomen, worse in the left upper quadrant, also bilateral CVA tenderness to palpation. No mass. Femoral pulses present and equal bilaterally. Concern for pancreatitis, ulcers, gastroenteritis, inflammatory bowel disease, other. Doubt cardiac etiology of symptoms. Exam/history at this time is not consistent with acute aortic pathology, mesenteric ischemia, sepsis, pulmonary embolism. Plan for EKG, screening labs, CT abdomen/pelvis, IV fluid hydration, IV Zofran, IV morphine for pain. Record review shows that patient has had 10 CT scans of the abdomen at this facility since 2016. I discussed with patient risk of malignancy from repeated radiation versus diagnostic benefit. Patient reiterates that this pain feels quite different from any other abdominal pain he has had as he has never had left upper quadrant pain in the past. He has capacity for informed decision making, and consents to CT scan of the abdomen after discussion of risks and benefits. Patient reporting sudden onset retrosternal chest pain. EKG repeated, unchanged from prior. Chest pain resolved prior to giving further medication. Patient reporting second episode of sudden onset retrosternal chest pain. He describes it as a heavy pressure sensation. Blood pressure now elevated, SBP 210/100. EKG repeated again: no major change from prior, no STEMI. Patient given sublingual nitroglycerin x3, blood pressure improved, patient reports pain resolved. Will obtain CT chest in addition to CT abdomen/pelvis given new pain. CT chest/abdomen/pelvis negative for acute process per radiology. Plan for admission for chest pressure in setting of hypertension, unclear etiology of left upper quadrant pain. Discussed patient with Dr. Carter, hospitalist, who will come see the patient. Patient signed out to Dr. Valero at time of shift change pending acceptance for admission. Clinical Impression: Abdominal pain, chest pain Disposition: [facility] inpatient Medical Records Medical records reviewed: Yes I reviewed the patient's medical records. Imaging Data Radiologic Study: Attestation: I personally reviewed and interpreted this imaging study as follows: Radiologist's impression: Exam(s) a CT:CT chest/abd/pel w Exam(s) CT CHEST/ABD/PEL W EXAM: CT CHEST/ABD/PEL W CLINICAL HISTORY: LUQ pain, chest pain. TECHNIQUE: Imaging Protocol: Axial computed tomography images with coronal and sagittal reformatted images were created and reviewed CONTRAST MATERIAL: Intravenous: Omnipaque 350 Contrast volume:100 ml Oral: None COMPARISON: CT CT ABDOMEN PELVIS W from 07/13/2019 FINDINGS: CHEST: LUNGS: Dependent increased markings posterior aspect both lower lobes again noted. No pleural effusions. There is a small pleural based noncalcified nodule again noted in the lateral basal segment of the left lobe which measures 5-6 millimeters, unchanged. There is also a similar size unchanged nodular density over the posterior basal segment left lower lobe (series 4/image 39) which is also unchanged. No additional lung nodules evident.. MEDIASTINUM: There is no hilar nor mediastinal adenopathy. Visualized thyroid unremarkable. CARDIAC: Heart size is normal. There is no pericardial effusion.Caliber of the thoracic aorta is within normal limits. OSSEOUS: No significant osseous lesions.. ABDOMEN: There is no ascites. LIVER: There are no focal hepatic lesions nor dilatation of intrahepatic ducts. GALLBLADDER/BILIARY: Surgically absent. Appendix surgically absent CBD is not dilated. PANCREAS: No evidence of pancreatic mass nor dilatation of the pancreatic duct. SPLEEN: Spleen is not enlarged. There are no intrasplenic lesions. Small splenule measuring 1 cm. Splenic and portal veins are patent. ADRENALS: There are no significant adrenal masses. KIDNEYS: No calculi nor hydronephrosis. No solid renal masses. There is 2 centimeter x 1.8 centimeter exophytic benign cysts off the lateral cortex of the right kidney. Tiny exophytic cyst off the posterior cortex of the left kidney. No solid renal masses calculi nor hydronephrosis. No hydroureter. No significant focal findings in the urinary bladder. ABDOMINAL AORTA: Abdominal aorta is not enlarged. LYMPH NODES: There is no retroperitoneal nor paraaortic adenopathy. ABDOMINAL WALL: No evidence of significant anterior abdominal wall hernia. GI: There is circumferential thickening of the sigmoid with prominent area of diverticuli. No streaking to suggest acute diverticulitis. No free air. No abscess. PELVIS: LYMPH NODES: There is no intrapelvic nor inguinal adenopathy. GI: Appendix is surgically absent.Sigmoid findings as above. URINARY BLADDER: No calculi nor masses evident REPRODUCTIVE: Prostate gland mildly enlarged. OSSEOUS: No significant osseous lesions. IMPRESSION: 1. Compared to prior CT scan of June 2019 there are again 2 stable noncalcified pulmonary nodules in the left lower lobe as described above. Also benign- appearing increased markings both lung bases. No pleural effusions. 2. Gallbladder surgically absent. The biliary tree is not dilated. 3. Appendix is surgically absent. No abscess. 4. Sigmoid wall thickening and diverticuli. No obvious acute diverticulitis. 5. Single benign cyst in each kidney. No other significant renal findings. No hydronephrosis. Lab Data Lab results reviewed: Yes I reviewed the patient's lab results. Labs: Laboratory Tests Range/Units 08/07/20 08/07/20 08/07/20 11:15 11:15 11:15 WBC (4.4-10.8) 10^3/uL 7.00 RBC (4.36-5.78) 10^6/uL 5.22 Hgb (13.5-17.5) g/dL 15.7 Hct (40.0-50.0) % 45.4 MCV (80-95) fL 87.0 MCH (27.0-33.0) pg 30.1 MCHC (32.0-36.0) % 34.6 RDW (11.8-14.1) % 12.1 Plt Count (130-400) 10^3/uL 213 MPV (8.0-11.0) fL 9.1 Immature Gran % 0.7 Neutrophils % 52.8 Lymphocytes % 36.1 Monocytes % 7.7 Eosinophils % 1.6 Basophils % 1.1 Nucleated RBC % % 0 Absolute Neutrophils (1.2-6.7) 10^3/uL 3.69 Absolute Lymphocytes (1.2-3.4) 10^3/uL 2.53 Absolute Monocytes (0.1-0.8) 10^3/uL 0.54 Absolute Eosinophils (0.0-0.7) 10^3/uL 0.11 Absolute Basophils (0.0-0.2) 10^3/uL 0.08 Sodium (136-145) mmol/L 143 Potassium (3.5-5.1) mmol/L 4.1 Chloride (98-107) mmol/L 108 H Carbon Dioxide (21.0-32.0) mmol/L 27.6 Anion Gap (3-11) mmol/L 7.4 BUN (7-18) mg/dL 20 H Creatinine (0.70-1.30) mg/dL 1.2 Estimated GFR/1.73 m2 (mL/min/1.73m2) >= 60.00 Glucose (74-106) mg/dL 103 Calcium (8.5-10.1) mg/dL 9.0 Magnesium (1.8-2.4) mg/dL 2.1 Total Bilirubin (0.2-1.0) mg/dL 0.7 AST (15-37) U/L 14 L ALT (16-63) U/L 30 Alkaline Phosphatase (46-116) U/L 121 H Troponin I (<0.06) ng/mL < 0.05 Total Protein (6.4-8.2) g/dL 7.1 Albumin (3.4-5.0) g/dL 3.9 Lipase (73-393) U/L 98 Urine Color (Yellow) Urine Clarity (Clear) Urine pH (5-8) Ur Specific [place] (1.005-1.025) Urine Protein (Negative) mg/dL Urine Ketones (Negative) mg/dL Urine Blood (Negative) Urine Nitrite (Negative) Urine Bilirubin (Negative) Urine Urobilinogen (Up TO 0.2) EU/dL Ur Leukocyte Esterase (Negative) Urine RBC (0-2) HPF Urine WBC (0-5) HPF Ur Epithelial Cells (Negative) HPF Urine Crystals (Negative) HPF Urine Bacteria (Negative) HPF Urine Casts (Negative) LPF Urine Mucus (Negative) Ur Culture Indicated? Urine Glucose (Negative) mg/dL Range/Units 08/07/20 08/07/20 12:25 14:30 WBC (4.4-10.8) 10^3/uL RBC (4.36-5.78) 10^6/uL Hgb (13.5-17.5) g/dL Hct (40.0-50.0) % MCV (80-95) fL MCH (27.0-33.0) pg MCHC (32.0-36.0) % RDW (11.8-14.1) % Plt Count (130-400) 10^3/uL MPV (8.0-11.0) fL Immature Gran % Neutrophils % Lymphocytes % Monocytes % Eosinophils % Basophils % Nucleated RBC % % Absolute Neutrophils (1.2-6.7) 10^3/uL Absolute Lymphocytes (1.2-3.4) 10^3/uL Absolute Monocytes (0.1-0.8) 10^3/uL Absolute Eosinophils (0.0-0.7) 10^3/uL Absolute Basophils (0.0-0.2) 10^3/uL Sodium (136-145) mmol/L Potassium (3.5-5.1) mmol/L Chloride (98-107) mmol/L Carbon Dioxide (21.0-32.0) mmol/L Anion Gap (3-11) mmol/L BUN (7-18) mg/dL Creatinine (0.70-1.30) mg/dL Estimated GFR/1.73 m2 (mL/min/1.73m2) Glucose (74-106) mg/dL Calcium (8.5-10.1) mg/dL Magnesium (1.8-2.4) mg/dL Total Bilirubin (0.2-1.0) mg/dL AST (15-37) U/L ALT (16-63) U/L Alkaline Phosphatase (46-116) U/L Troponin I (<0.06) ng/mL < 0.05 Total Protein (6.4-8.2) g/dL Albumin (3.4-5.0) g/dL Lipase (73-393) U/L Urine Color (Yellow) Yellow Urine Clarity (Clear) Clear Urine pH (5-8) 7.0 Ur Specific [place] (1.005-1.025) 1.025 Urine Protein (Negative) mg/dL Negative Urine Ketones (Negative) mg/dL Negative Urine Blood (Negative) Trace-intact H Urine Nitrite (Negative) Negative Urine Bilirubin (Negative) Negative Urine Urobilinogen (Up TO 0.2) EU/dL 0.2 Ur Leukocyte Esterase (Negative) Negative Urine RBC (0-2) HPF 0-2 Urine WBC (0-5) HPF Negative Ur Epithelial Cells (Negative) HPF Rare Urine Crystals (Negative) HPF Negative Urine Bacteria (Negative) HPF Negative Urine Casts (Negative) LPF Negative Urine Mucus (Negative) Trace Ur Culture Indicated? No Urine Glucose (Negative) mg/dL Negative ECG Data Attestation: I personally reviewed and interpreted this ECG (s) as follows: Interpretation: EKG shows sinus bradycardia at 51, WI interval 227, normal axis, no acute ischemic changes, nondiagnostic EKG Repeat EKG 13:06 shows sinus bradycardia at 47, WI interval 220, normal axis, no major change from prior, no STEMI, nondiagnostic EKG Repeat EKG 14: 14 shows sinus bradycardia at 52, normal axis, no major change from prior, no STEMI, nondiagnostic EKG <Dung Valero MD - Last Filed: 08/07/20 17:28> patient seen by Dr. Wilkes who feels it is likely gastritis but will admit on tele and discuss having endoscopy as well. HPI <Ashely Williamson MD - Last Filed: 08/09/20 08:52> General Mode of arrival: ambulatory . Date/Time Provider Initiated Documentation: 08/07/20 11:01 . Limitations to Documentation: no limitations . Information obtained by: patient, RN/, RN notes reviewed and old records reviewed . HPI Narrative: Malachi Senior is a 50-year-old man with a history of GERD, gastric ulcer, hiatal hernia, status post cholecystectomy and appendectomy presenting to emergency department with abdominal pain. Patient reports that he woke up at 4:00 in the morning on 08/05/2020 with vomiting, left upper quadrant pain, and diarrhea. Patient reports that since then he has persistent pain, vomiting, and diarrhea. Patient reports that pain is worse in left upper quadrant radiates all aspects of his abdomen and to bilateral flanks. Patient reports that he held down fluids proteins yesterday, but in general has been vomiting every time he tries to eat or drink. He denies any other pain except for mild headache that he attributes to being dehydrated. Patient reports fever 100.1 when symptoms started, no other fever. Denies shortness of breath, cough, numbness, weakness, rash, bloody emesis, melena. Patient reports that he has a history of abdominal pain, although in the past this is always been right upper quadrant pain. Patient reports that this episode feels much different than abdominal pain that he has been seen for multiple times in the past. Patient reports that his prior abdominal pain was somewhat improved after having his cholecystectomy, although he reports that he has still had persistent nausea and feels that his quality of life is poor due to his chronic ongoing abdominal issues. Patient believes that he saw a information technology security manager in [place] at some point but is unsure of the timing. He reports occasional marijuana use, denies tobacco/nicotine, denies alcohol use. Related Data Home Medications Medication Instructions Recorded Confirmed cholestyramine (with sugar) 1 pwd PO BID #378 pwd 08/08/20 [Questran] ondansetron 4 mg TRANSLINGUAL Q8H PRN #10 tab 08/08/20 pantoprazole [Protonix] 40 mg PO DAILY #30 tab 08/08/20 sucralfate [Carafate] 1 g PO QACHS #120 tab 08/08/20 Previous Rx's Medication Instructions Recorded cholestyramine (with sugar) 1 pwd PO BID #378 pwd 08/08/20 [Questran] ondansetron 4 mg TRANSLINGUAL Q8H PRN #10 tab 08/08/20 pantoprazole [Protonix] 40 mg PO DAILY #30 tab 08/08/20 sucralfate [Carafate] 1 g PO QACHS #120 tab 08/08/20 Allergies Allergy/AdvReac Type Severity Reaction Status Date / Time morphine AdvReac Unverified 08/08/20 12:51 General Stated Complaint: Abd Prob NEELIMA: 3 Review of Systems <Ashely Williamson MD - Last Filed: 08/09/20 08:52> Narrative: Constitutional: denies fevers Eyes: denies eye pain ENT: denies ear pain, dental pain, sore throat Cardiovascular: denies chest pain Respiratory: denies SOB, cough GI: reports abdominal pain, vomiting, diarrhea, denies constipation, melena, bloody emesis : Denies dysuria, reports bilateral flank pain MSK: denies back pain, neck pain, arthralgias, myalgias Skin: denies rash Neuro: denies headaches, numbness, weakness PFSH <Ashely Williamson MD - Last Filed: 08/09/20 08:52> Medical History Depression Diverticulitis Duodenitis Gastric ulcer Gastritis GERD (gastroesophageal reflux disease) Hiatal hernia History of urinary urgency Surgical History (Updated 07/26/19 @ 13:12 by Hortensia Young RN) Appendectomy Colonoscopy - MAC (05/13/17) EGD - MAC (05/13/17) S/P laparoscopic cholecystectomy (~07/26/19) wrist surgery Family History (Updated 08/07/20 @ 18:06 by Ruth Carter MD) Maternal Grandmother Hypertension Diabetes Mother Stroke Cancer ovarian Maternal Grandfather Cancer lung Social History Smoking/Tobacco Use Status: Former Tobacco Use Smoking risk assessment performed?: Yes Alcohol Intake: never Drug use: Occasionally Substance use type: marijuana Details: 07/25/19 last used Do you feel safe at home: Yes Do you feel safe in your relationship?: Yes Exam <Ashely Williamson MD - Last Filed: 08/09/20 08:52> Narrative Exam Narrative: Constitutional: well and [id number], pleasant, appears uncomfortable but otherwise conversing normally HENT: head atraumatic/normocephalic/normal inspection, mucous membranes moist Eyes: conjunctiva normal, sclera normal, pupils 3mm b/l Neck: no stridor, normal ROM, trachea midline Resp: normal work of breathing, speaking in full sentences Cardio: normal rate, normal rhythm GI: abdomen soft, focal tenderness palpation left upper quadrant that reproduces pain worse than generalized abdominal tenderness, positive rebound, negative guarding, positive CVA tenderness bilaterally, non-distended Back: normal inspection, no rash Skin: warm, dry, normal color, no rash Neuro: alert, not altered, grossly non-focal, normal tone Ext: no edema, no posterior calf tenderness to palpation Psych: normal mood, normal affect, normal behavior Course <Ashely Williamson MD - Last Filed: 08/09/20 08:52> Vital Signs Vital signs: Vital Signs Temperature 36.5 C 08/07/20 11:06 Pulse 53 L 08/07/20 11:06 Respiratory Rate 16 08/07/20 11:06 Blood Pressure 153/91 H 08/07/20 11:06 Pulse Oximetry 97 08/07/20 11:06 Temperature 36.5 C 08/07/20 11:06 Temperature Source Skin 08/07/20 11:06 Pulse 53 L 08/07/20 11:06 Respiratory Rate 16 08/07/20 11:06 Respiratory Effort Non-Labored 08/07/20 11:06 Blood Pressure 153/91 H 08/07/20 11:06 Blood Pressure Position Supine 08/07/20 11:06 Pulse Oximetry 97 08/07/20 11:06 Oxygen Delivery Method Room Air 08/07/20 11:06 Oxygen Flow Rate 0 08/07/20 11:06 Pain Level 8 08/07/20 11:06 Lab/Test Results Lab/Test Results: Laboratory Tests Range/Units 08/07/20 11:15 WBC (4.4-10.8) 10^3/uL 7.00 RBC (4.36-5.78) 10^6/uL 5.22 Hgb (13.5-17.5) g/dL 15.7 Hct (40.0-50.0) % 45.4 MCV (80-95) fL 87.0 MCH (27.0-33.0) pg 30.1 MCHC (32.0-36.0) % 34.6 RDW (11.8-14.1) % 12.1 Plt Count (130-400) 10^3/uL 213 MPV (8.0-11.0) fL 9.1 Immature Gran % 0.7 Neutrophils % 52.8 Lymphocytes % 36.1 Monocytes % 7.7 Eosinophils % 1.6 Basophils % 1.1 Nucleated RBC % % 0 Absolute Neutrophils (1.2-6.7) 10^3/uL 3.69 Absolute Lymphocytes (1.2-3.4) 10^3/uL 2.53 Absolute Monocytes (0.1-0.8) 10^3/uL 0.54 Absolute Eosinophils (0.0-0.7) 10^3/uL 0.11 Absolute Basophils (0.0-0.2) 10^3/uL 0.08 Sign Out <Ashely Williamson MD - Last Filed: 08/09/20 08:52> Sign Out Data: Sign Out Comment: Patient signed out to Dr. Valero at time of shift change with evaluation by hospitalist for admission pending Last updated by Ashely Williamson MD at 08/07/20 16:48
[2020-08-07 11:49] LABS: ALT 30 U/L (16-63); AST 14 U/L (15-37); Albumin 3.9 g/dL (3.4-5.0); Alkaline Phosphatase 121 U/L (46-116); Anion Gap 7.4 mmol/L (3-11); BUN 20 mg/dL (7-18); Bilirubin, Total 0.7 mg/dL (0.2-1.0); CO2 27.6 mmol/L (21.0-32.0); CREATININE 1.2 mg/dL (0.70-1.30); Chloride 108 mmol/L (98-107); Glucose 103 mg/dL (74-106); Potassium 4.1 mmol/L (3.5-5.1); Sodium 143 mmol/L (136-145); Total Protein 7.1 g/dL (6.4-8.2)
[2020-08-07] MEDS: Ondansetron 4 MG/2 ML VIAL IVP ×2 (12:00→17:40)
[2020-08-07 12:07] LABS: Lipase 98 U/L (73-393); Magnesium 2.1 mg/dL (1.8-2.4); Troponin I < 0.05 ng/mL (<0.06)
[2020-08-07 12:43] LABS: Bilirubin Negative (Negative); Blood Trace-intact (Negative); Clarity Clear (Clear); Glucose Negative (Negative); Ketones Negative (Negative); Leukocyte Esterase Negative (Negative); Nitrite Negative (Negative); Specific Gravity 1.025 (1.005-1.025); Urobilinogen 0.2 EU/dL (Up TO 0.2)
[2020-08-07 12:51] LABS: Bacteria Negative HPF (Negative); C & S Indicated? No; Casts Negative LPF (Negative); Crystals Negative HPF (Negative); Epithelial Cells Rare HPF (Negative); Mucus Trace (Negative); RBC 0-2 HPF (0-2); WBC Negative HPF (0-5)
--- NOTE | 2020-08-07 13:00 | RT.EKG_ITS ---
APPROVED REPORT Exam: Resting ECG Reason for Exam: increased chest pain Patient Location: E HR:47 bpm ECG Measurements Heart Rate 47 AXIS VA 222 P 10 QRSd 83 QRS 27 QT 447 T 9 QTc 397 Conclusion Sinus bradycardia...rate< 60 Prolonged VA interval...VA >220, V-rate 30- 49 sinus bradycardia at 47, VA interval 220, normal axis, no major change from prior, nondiagnostic EKG
[2020-08-07] MEDS: HYDROmorphone 2 MG/ML VIAL 0.5 MG IVP ×3 (13:07→20:27)
--- NOTE | 2020-08-07 13:45 | DI.CT_ITS ---
Exam(s) CT CHEST/ABD/PEL W EXAM: CT CHEST/ABD/PEL W CLINICAL HISTORY: LUQ pain, chest pain. TECHNIQUE: Imaging Protocol: Axial computed tomography images with coronal and sagittal reformatted images were created and reviewed CONTRAST MATERIAL: Intravenous: Omnipaque 350 Contrast volume:100 ml Oral: None COMPARISON: CT CT ABDOMEN PELVIS W from 07/13/2019 FINDINGS: CHEST: LUNGS: Dependent increased markings posterior aspect both lower lobes again noted. No pleural effusi ons. There is a small pleural based noncalcified nodule again noted in the lateral basal segment of the left lobe which measures 5-6 millimeters, unchanged. There is also a similar size unchanged nodu lar density over the posterior basal segment left lower lobe (series 4/image 39) which is also unchan ged. No additional lung nodules evident.. MEDIASTINUM: There is no hilar nor mediastinal adenopathy. Visualized thyroid unremarkable. CARDIAC: Heart size is normal. There is no pericardial effusion.Caliber of the thoracic aorta is wit hin normal limits. OSSEOUS: No significant osseous lesions.. ABDOMEN: There is no ascites. LIVER: There are no focal hepatic lesions nor dilatation of intrahepatic ducts. GALLBLADDER/BILIARY: Surgically absent. Appendix surgically absent CBD is not dilated. PANCREAS: No evidence of pancreatic mass nor dilatation of the pancreatic duct. SPLEEN: Spleen is not enlarged. There are no intrasplenic lesions. Small splenule measuring 1 cm. S plenic and portal veins are patent. ADRENALS: There are no significant adrenal masses. KIDNEYS: No calculi nor hydronephrosis. No solid renal masses. There is 2 centimeter x 1.8 centimeter exophytic benign cysts off the lateral cortex of the right kidney. Tiny exophytic cyst off the post erior cortex of the left kidney. No solid renal masses calculi nor hydronephrosis. No hydroureter. No significant focal findings in the urinary bladder. ABDOMINAL AORTA: Abdominal aorta is not enlarged. LYMPH NODES: There is no retroperitoneal nor paraaortic adenopathy. ABDOMINAL WALL: No evidence of significant anterior abdominal wall hernia. GI: There is circumferential thickening of the sigmoid with prominent area of diverticuli. No streak ing to suggest acute diverticulitis. No free air. No abscess. PELVIS: LYMPH NODES: There is no intrapelvic nor inguinal adenopathy. GI: Appendix is surgically absent.Sigmoid findings as above. URINARY BLADDER: No calculi nor masses evident REPRODUCTIVE: Prostate gland mildly enlarged. OSSEOUS: No significant osseous lesions. IMPRESSION: 1. Compared to prior CT scan of June 2019 there are again 2 stable noncalcified pulmonary nodules in the left lower lobe as described above. Also benign-appearing increased markings both lung bases. No pleural effusions. 2. Gallbladder surgically absent. The biliary tree is not dilated. 3. Appendix is surgically absent. No abscess. 4. Sigmoid wall thickening and diverticuli. No obvious acute diverticulitis. 5. Single benign cyst in each kidney. No other significant renal findings. No hydronephrosis. RADIATION DOSE DELIVERED: 1,366.08mGy.cm Total DLP DATA REPOSITORY: All CT scans at this facility are submitted to the National Radiology Data Registry (NRDR) Dose Index Registry (DIR) with the [employer] ([employer]). RADIATION OPTIMIZATION: All CT scans at this facility use at least one of these dose optimization te chniques: automated exposure control; mA and/or kV adjustment per patient size (includes targeted exa ms where dose is matched to clinical indication); or iterative reconstruction.
--- NOTE | 2020-08-07 14:00 | RT.EKG_ITS ---
APPROVED REPORT Exam: Resting ECG Reason for Exam: chest pain Patient Location: E HR:52 bpm ECG Measurements Heart Rate 52 AXIS MI 83 P 0 QRSd 86 QRS 19 QT 452 T 9 QTc 420 Conclusion Sinus bradycardia...rate< 60 sinus bradycardia at 52, normal axis, no major change from prior, no STEMI, nondiagnostic EKG
[2020-08-07] MEDS: nitroGLYcerin 0.4 MG TAB ×3 (14:20→14:32)
[2020-08-07] MEDS: Pantoprazole 40 MG VIAL IVP ×2 (14:23→20:27)
[2020-08-07 15:00] LABS: Troponin I < 0.05 ng/mL (<0.06)
[2020-08-07] MEDS: Omnipaque 350 MG/ML 100 ML BTL IJ (15:18)
[2020-08-07] MEDS: Normal Saline - Diluent 50 ML VIAL IV (15:18)
--- NOTE | 2020-08-07 15:50 | NUR.NOTE ---
Nursing Note: Lupe Ashton [facility] [phone]/C [phone]
--- NOTE | 2020-08-07 17:24 | HPE_ITS ---
Date of service: 08/07/20 Time of Service: 17:00 Assessment and Plan Assessment and plan (1) Nausea vomiting and diarrhea: Status: Acute Assessment and plan: R/o COVID-19 and obtain stool studies. Check hemoccult (H/H wnl and normocytic). Imaging negative for acute pathology. Most likely scenario for n/v is acute on chronic gastritis and the diarrhea being secondary to cholecystectomy. Will empirically treat with IV protonix, antiemetics, carafate. Can have clear liquids tonight but will make NPO after midnight for a possible EGD. Surgical consult in am. (2) LUQ abdominal pain: Status: Acute Assessment and plan: ?Acute gastritis +/- musculoskeletal pain from vomiting. Treat as above prn IV dilaudid (3) Chest pain: Status: Acute Assessment and plan: Doubt ACS; however, will monitor on tele. Consider echo. Consider MPI as outpatient. LUQ pain is non-cardiac. (4) H/O acute gastritis: Status: Chronic Assessment and plan: with h/o hemorrhagic ulcer, acute duodenitis, hiatal hernia. As above - the patient will likely require an EGD on this admission (5) DVT prophylaxis: Status: Acute Assessment and plan: TEDs/SCDs (6) Discharge planning issues: Status: Acute Assessment and plan: Full code Observation status History of Present Illness History of Present Illness Chief Complaint: I have no quality of life right now LUQ pain, nausea/vomiting/diarrhea Narrative: Mr Senior is a 50 year old male with PMHx of chronic abdominal pain (he states since cholecystectomy in 07/18), as well as h/o duodenitis, gastritis, hemorrhagic ulcer, and hiatal hernia, who was sent to [facility] ED today by his PCP for complaints of LUQ pain, n/v/diarrhea and inability to keep down any food at home. The patient states that these symptoms started 2 weeks ago. Denies blood in stool or emetic contents. Stools have been posadas or brown, sometimes dark brown, like this morning. Stools have been oily. No one around his has been sick. He states he has been so miserable that he feels he has no quailty of life right now. The patient states that he had a low grade fever at home, but denies contact with anyone confirmed or suspected to have COVID-19. He is not vaccinated against COVID-19 and is not interested in receiving vaccination at this time. While in the ED, he had an episode of sharp pressure-like substernal chest pain accompanied by a sharp rise in BP, both of which were relieved with nitroglycerin. He states GI cocktail did not help him. He does admit to smoking canabis, but denies doing it in the last couple of weeks. Review of Systems All systems reviewed & are unremarkable except as noted in HPI and below PFSH Medical History (Updated 08/07/20 @ 18:20 by Ruth Carter MD) Depression Diverticulitis Duodenitis Gastric ulcer Gastritis GERD (gastroesophageal reflux disease) Hiatal hernia History of urinary urgency Surgical History (Updated 07/26/19 @ 13:12 by Hortensia Young RN) Appendectomy Colonoscopy - MAC (05/13/17) EGD - MAC (05/13/17) S/P laparoscopic cholecystectomy (~07/26/19) wrist surgery Family History (Updated 08/07/20 @ 18:06 by Ruth Carter MD) Maternal Grandmother Hypertension Diabetes Mother Stroke Cancer ovarian Maternal Grandfather Cancer lung Social History Smoking/Tobacco Use Status: Former Tobacco Use Smoking risk assessment performed?: Yes Alcohol Intake: never Drug use: Occasionally Substance use type: marijuana Details: 07/25/19 last used Do you feel safe at home: Yes Do you feel safe in your relationship?: Yes Meds Allergies and Home Medications Allergies Allergy/AdvReac Type Severity Reaction Status Date / Time No Known Allergies Allergy Unverified 08/07/20 11:17 Home Medications Medication Instructions Recorded Confirmed Type omeprazole 40 mg PO DAILY 09/06/18 08/07/20 History ibuprofen [IBU-200] 600 mg PO Q8H PRN #60 tab 05/11/19 08/07/20 Rx Exam Narrative Exam Narrative: General: Anxious Obese male who does appear uncomfortable, A&Ox3 Neurological: A&Ox3, no focal deficits Psychiatric: Anxious, irritable Skin: Visible skin intact HEENT: Atraumatic, normocephalic, EOMI, dry MM, clear oropharynx, no submandibular or cervical lymphadenopathy, no goiter or JVD Cardiovascular: RRR, no m/r/g Lungs: CTAB Gastrointestinal: soft, tender in LUQ and epigastriu, nondistended + BS Genitourinary: deferred Extremities: no edema BLE's Results Imaging Additional studies: CT chest/abdomen/pelvis: 1. Compared to prior CT scan of June 2019 there are again 2 stable noncalcified pulmonary nodules in the left lower lobe as described above. Also benign- appearing increased markings both lung bases. No pleural effusions. 2. Gallbladder surgically absent. The biliary tree is not dilated. 3. Appendix is surgically absent. No abscess. 4. Sigmoid wall thickening and diverticuli. No obvious acute diverticulitis. 5. Single benign cyst in each kidney. No other significant renal findings. No hydronephrosis. EKG #1: HR 51, sinus bradycardia, no acute ischemia EKG #2: HR 47, sinus bradycardia, no acute ischemia EKG #3: HR 52, sinus bradycardia Labs Result diagrams: 08/07/20 11:15 08/07/20 11:15 Labs: Laboratory Results - last 24 hr 08/07/20 08/07/20 08/07/20 11:15 11:15 11:15 WBC 7.00 RBC 5.22 Hgb 15.7 Hct 45.4 MCV 87.0 MCH 30.1 MCHC 34.6 RDW 12.1 Plt Count 213 MPV 9.1 Immature Gran % 0.7 Neutrophils % 52.8 Lymphocytes % 36.1 Monocytes % 7.7 Eosinophils % 1.6 Basophils % 1.1 Nucleated RBC % 0 Absolute Neutrophils 3.69 Absolute Lymphocytes 2.53 Absolute Monocytes 0.54 Absolute Eosinophils 0.11 Absolute Basophils 0.08 Sodium 143 Potassium 4.1 Chloride 108 H Carbon Dioxide 27.6 Anion Gap 7.4 BUN 20 H Creatinine 1.2 Estimated GFR/1.73 m2 >= 60.00 Glucose 103 Calcium 9.0 Magnesium 2.1 Total Bilirubin 0.7 AST 14 L ALT 30 Alkaline Phosphatase 121 H Troponin I < 0.05 Total Protein 7.1 Albumin 3.9 Lipase 98 Urine Color Urine Clarity Urine pH Ur Specific [place] Urine Protein Urine Ketones Urine Blood Urine Nitrite Urine Bilirubin Urine Urobilinogen Ur Leukocyte Esterase Urine RBC Urine WBC Ur Epithelial Cells Urine Crystals Urine Bacteria Urine Casts Urine Mucus Ur Culture Indicated? Urine Glucose 08/07/20 08/07/20 12:25 14:30 WBC RBC Hgb Hct MCV MCH MCHC RDW Plt Count MPV Immature Gran % Neutrophils % Lymphocytes % Monocytes % Eosinophils % Basophils % Nucleated RBC % Absolute Neutrophils Absolute Lymphocytes Absolute Monocytes Absolute Eosinophils Absolute Basophils Sodium Potassium Chloride Carbon Dioxide Anion Gap BUN Creatinine Estimated GFR/1.73 m2 Glucose Calcium Magnesium Total Bilirubin AST ALT Alkaline Phosphatase Troponin I < 0.05 Total Protein Albumin Lipase Urine Color Yellow Urine Clarity Clear Urine pH 7.0 Ur Specific [place] 1.025 Urine Protein Negative Urine Ketones Negative Urine Blood Trace-intact H Urine Nitrite Negative Urine Bilirubin Negative Urine Urobilinogen 0.2 Ur Leukocyte Esterase Negative Urine RBC 0-2 Urine WBC Negative Ur Epithelial Cells Rare Urine Crystals Negative Urine Bacteria Negative Urine Casts Negative Urine Mucus Trace Ur Culture Indicated? No Urine Glucose Negative Last Vital Signs Temp 36.5 C 08/07/20 11:06 Pulse 48 L 08/07/20 15:46 Resp 14 08/07/20 15:50 BP 131/77 08/07/20 15:46 Pulse Ox 96 08/07/20 15:50 COVID-19 Screening Have you, or household traveled for leisure in last 14 days?: No Had IN PERSON contact w/suspected or confirmed C-19 person: No Have you had the following symptoms in the past few days?: Yes Symptoms noted since travel?: Fever
[2020-08-07 17:31] LABS: Source Nasal/Nares
[2020-08-07] MEDS: Normal Saline 1,000 ML 150 ML IV ×2 (17:35→23:21)
[2020-08-07 18:17] LABS: COVID-19 PCR Negative (Negative)
[2020-08-07 18:34] LABS: *AMPHETAMINES SCREEN URINE Negative (Negative); *BARBITURATES SCREEN URINE Negative (Negative); *BENZODIAZEPINES SCREEN URINE Negative (Negative); Cannabinoids THC Positive (Negative); Cocaine Screen,Urine Negative (Negative); METHADONE URINE SCREEN Negative (Negative); OPIATES URINE SCREEN Positive (Negative)
[2020-08-07 18:39] LABS: Tricyclic Antidepressants Negative (Negative)
[2020-08-07] MEDS: Mylanta Suspension 30 ML CUP PO (20:26)
[2020-08-07] MEDS: Acetaminophen 325 MG TAB 650 MG PO (20:27)
[2020-08-07] MEDS: Sucralfate 1 GM TAB PO (21:25)
[2020-08-08 00:16] VITALS: BP 133/76; PULSE 47; RESP 12; TEMP 36; O2SAT 94
[2020-08-08] MEDS: Acetaminophen 325 MG TAB 650 MG PO ×3 (02:59→13:37)
[2020-08-08] MEDS: Ondansetron 4 MG/2 ML VIAL IVP ×3 (03:00→15:07)
[2020-08-08] MEDS: HYDROmorphone 2 MG/ML VIAL 0.5 MG IVP ×4 (03:00→13:37)
[2020-08-08] MEDS: Normal Saline Flush 10 ML SYR IVP ×7 (03:01→15:07)
[2020-08-08 03:57] VITALS: BP 137/82; PULSE 51; RESP 12; TEMP 36.7; O2SAT 95
[2020-08-08] MEDS: Normal Saline 1,000 ML 150 ML IV ×2 (06:03→13:30)
[2020-08-08 07:00] VITALS: PULSE 50
[2020-08-08 07:06] LABS: Abs Immature Grans 0.02 10^3/uL (0.0-0.06); Absolute Basophil Count 0.04 10^3/uL (0.0-0.2); Absolute Eosinophil Count 0.11 10^3/uL (0.0-0.7); Absolute Lymphocyte Count 2.33 10^3/uL (1.2-3.4); Absolute Monocyte Count 0.36 10^3/uL (0.1-0.8); Absolute Neutrophil Count 2.37 10^3/uL (1.2-6.7); Basophils % 0.8; Eosinophils % 2.1; HCT 38.3 % (40.0-50.0); HGB 13.2 g/dL (13.5-17.5); Immature Grans % 0.4; Lymphocytes % 44.6; MCH 30.5 pg (27.0-33.0); MCHC 34.5 % (32.0-36.0); MCV 88.5 fL (80-95); MPV 9.7 fL (8.0-11.0); Monocytes % 6.9; Neutrophils % 45.2; Nucleated RBC 0 %; Platelet Count 176 10^3/uL (130-400); RBC 4.33 10^6/uL (4.36-5.78); RDW-SD 38.8 fL; WBC 5.23 10^3/uL (4.4-10.8)
[2020-08-08 07:13] VITALS: BP 136/79; PULSE 53; RESP 19; TEMP 36.8; O2SAT 96
[2020-08-08 07:28] LABS: ALT 28 U/L (16-63); AST 10 U/L (15-37); Albumin 2.9 g/dL (3.4-5.0); Alkaline Phosphatase 73 U/L (46-116); BUN 12 mg/dL (7-18); Bilirubin, Direct 0.1 mg/dL (0.0-0.2); Bilirubin, Total 0.7 mg/dL (0.2-1.0); CREATININE 1.1 mg/dL (0.70-1.30); Calcium 8.1 mg/dL (8.5-10.1); Chloride 110 mmol/L (98-107); Glucose 97 mg/dL (74-106); Magnesium 1.9 mg/dL (1.8-2.4); Sodium 143 mmol/L (136-145); Total Protein 5.3 g/dL (6.4-8.2)
[2020-08-08 07:30] LABS: Troponin I < 0.05 ng/mL (<0.06)
[2020-08-08] MEDS: Pantoprazole 40 MG VIAL IVP (07:34)
[2020-08-08] MEDS: Sucralfate 1 GM TAB PO ×2 (07:34→11:21)
[2020-08-08 07:56] LABS: Hemoglobin A1C 5.3 % (<5.7)
--- NOTE | 2020-08-08 08:30 | PDOC.CMIN ---
- If Service Date Differs Date of service: 08/08/20 Time of Service: 08:31 Care Management Initial Assess REASON FOR HOSPITALIZATION:: Nausea, vomitting, diarrhea PAST MEDICAL HISTORY/PAST SURGICAL HISTORY:: Medical History (Updated 08/07/20 @ 18:20 by Ruth Carter MD). Depression. Diverticulitis. Duodenitis. Gastric ulcer. Gastritis. GERD (gastroesophageal reflux disease). Hiatal hernia. History of urinary urgency. Surgical History (Updated 07/26/19 @ 13:12 by Hortensia Young RN). Appendectomy. Colonoscopy - MAC (05/13/17). EGD - MAC (05/13/17). S/P laparoscopic cholecystectomy (~07/26/19). wrist surgery PREVIOUS FUNCTIONAL STATUS/SOCIAL/FAMILY SUPPORTS:: Hudson lives in an apartment in [place] with his girlfriend Cassandra. 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 Hudson has 2 adult children who are not in the area but with whom he has a close relationship.Hudson receives no commmunity services and does not anticipate the need for any at discharge. CURRENT FUNCTIONAL STATUS:: Hudson was lying in bed when CM met with him. He was compalining of upper abdominal pain which he described as being under his ribs. He stated I am just tird of feeling sick all of the time. I have a poor quality of life. He shared that he has had abdominal pain for years and that no one has been able to find the root cause. He verbalized that he hopes that if he has an endoscopic procedure, that he will get answers and be able to get better. ADVANCE DIRECTIVES:: none on file Has patient been provided with info about the portal/API?: Yes Did the patient sign up for the portal?: No CODE STATUS:: Full Code INSURANCE COVERAGE / FINANCIAL ISSUES:: Medicaid CURRENT HOME/COMMUNITY SERVICES/EQUIPMENT:: none currently PRIMARY CARE PHYSICIAN:: Nanci Spivey POTENTIAL DISCHARGE NEEDS:: Follow up with PCP and plan of care PATIENT/FAMILY EDUCATION NEEDS:: Review of discharge instructions, medications, activity, limitations, Ask Me Three TRANSPORTATION:: via private vehicle with friend/family PLAN:: Hudson will likely be discharged home with no new services. He will follow up with his community providers and plan of care and transport with a friend. CM will continue to support Hudson and assess for discharge plannng needs.
--- NOTE | 2020-08-08 09:36 | NUR.NOTE ---
Nursing Note: At 0930 on 08/08/20, this RN answered a call from the pt.'s girlfriend, Nicole Medina. RN updated the pt.'s girlfriend regarding the pt.'s mentation, VS, pain level, head to toe assessment, plan of care, etc. Pt.'s girlfriend verbalized understanding and presented with no questions. Pt.'s girlfriend's call was then transferred in to the pt.'s room. RN will reassess as necessary.
--- NOTE | 2020-08-08 10:42 | NUR.NOTE ---
Nursing Note: At 1040 on 08/08/20, this RN answered a call from the pt.'s mother. RN updated the pt.'s mother regarding the pt.'s mentation, VS, pain level, head to toe assessment, plan of care, etc. Pt.'s mother verbalized understanding and presented with no questions. RN will reassess as necessary.
[2020-08-08 11:25] VITALS: BP 165/96; PULSE 48; RESP 19; TEMP 36.8; O2SAT 98
--- NOTE | 2020-08-08 12:16 | W.ANESPRE ---
General Info Date of Service Date Performed: 08/08/20 Height: 6 ft Weight: 95.5 kg Body Mass Index (BMI): 28.5 Surgical Procedure: Operation Date: 08/08/20 13:20 Proposed Procedures Side Surgeon p Gastroscopy Frances Warner DO Meds Allergies and Home Medications Allergies Allergy/AdvReac Type Severity Reaction Status Date / Time morphine AdvReac Unverified 08/08/20 12:51 Home Medication Medication Instructions Recorded omeprazole 40 mg PO DAILY 09/06/18 ibuprofen [IBU-200] 600 mg PO Q8H PRN #60 tab 05/11/19 Current Visit Medications: Current Medications Generic Name Dose Route Start Last Admin Trade Name Freq PRN Reason Stop Dose Admin Acetaminophen 650 mg 08/07/20 17:17 08/08/20 07:45 Acetaminophen 325 Mg Tab PO 650 mg Q4H PRN PRN Administration Al Hydrox/Mg Hydrox/Simethicone 30 ml 08/07/20 17:17 08/07/20 20:26 Mylanta Suspension 30 Ml Cup PO 30 ml Q2H PRN PRN Administration Dimethicone/Zinc Oxide 0 gm 08/07/20 17:17 Lita Protect Cream 142 Gm Tube TP PRN PRN Hydromorphone HCl 0.5 mg 08/07/20 17:23 08/08/20 11:21 Hydromorphone 2 Mg/Ml Vial IVP 0.5 mg Q2H PRN PRN Administration Sodium Chloride 1,000 mls @ 150 mls/hr 08/07/20 17:30 08/08/20 06:03 Saline 1000ml Bag IV 150 mls/hr INFUSION ALFREDO Administration IV Miscellaneous Supplies 1 each 08/07/20 11:15 Iv Access IV DIRECTED ALFREDO Nitroglycerin 0.4 mg 08/07/20 14:08 Nitroglycerin 0.4 Mg Tab SL Q5 MIN PRN X3 PRN Ondansetron HCl 4 mg 08/07/20 17:23 08/08/20 09:21 Ondansetron 4 Mg/2 Ml Vial IVP 4 mg Q6H PRN PRN Administration Pantoprazole Sodium 40 mg 08/07/20 20:00 08/08/20 07:34 Pantoprazole 40 Mg Vial IVP 40 mg BID ALFREDO Administration Sodium Chloride 0 ml 08/07/20 11:07 08/08/20 11:21 Normal Saline Flush 10 Ml Syr IVP 20 ml PRN PRN Administration Sucralfate 1 gm 08/07/20 22:00 08/08/20 11:21 Sucralfate 1 Gm Tab PO 1 gm AC & HS ALFREDO Administration PFSH Active Problems Active Problems: Problem Status Onset Code Discharge planning issues Z02.9 DVT prophylaxis Z29.9 H/O acute gastritis Z87.19 Nausea vomiting and diarrhea R11.2, R19.7 LUQ abdominal pain R10.12 Chest pain R07.9 Postop check Z09 Chronic cholecystitis K81.1 Pre-op exam Z01.818 Male pelvic pain R10.2 Hand laceration S61.419A History of urinary urgency Z87.448 RUQ abdominal pain R10.11 Acute abdominal pain in right upper quadrant R10.11 Rectal arterial hemorrhage 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.5 Hiatal hernia K44.9 Elevated LFTs R94.5 Gastric ulcer K25.9 Depression F32.9 Suicidal ideations 12/25/13 R45.851 H/O surgical procedure Z98.89 Chronic abdominal pain R10.9, G89.29 Anal fissure K60.2 Diverticulitis of sigmoid colon K57.32 Chest pressure R07.89 GERD (gastroesophageal reflux disease) K21.9 Medical History Medical History (Updated 08/07/20 @ 18:20 by Ruth Carter MD) Depression Diverticulitis Duodenitis Gastric ulcer Gastritis GERD (gastroesophageal reflux disease) Hiatal hernia History of urinary urgency Surgical History Surgical History (Updated 07/26/19 @ 13:12 by Hortensia Young RN) Appendectomy Colonoscopy - MAC (05/13/17) EGD - MAC (05/13/17) S/P laparoscopic cholecystectomy (~07/26/19) wrist surgery Tobacco Smoking/Tobacco Use Status: Former Tobacco Use Alcohol Alcohol Intake: never Substance Use Substance use: Occasionally Substance use type: marijuana Details: 07/25/19 last used Vital Signs and Lab Results Vital Signs Most Recent Vital Signs in EMR: Most Recent Vital Signs Temp Pulse Resp BP Pulse Ox 36.8 C 48 L 19 165/96 H 98 08/08/20 11:25 08/08/20 11:25 08/08/20 11:25 08/08/20 11:25 08/08/20 11:25 Lab Results Result Diagrams: 08/08/20 12:05 08/08/20 06:15 Blood Type / Crossmatch: No Data to Display Complete Blood Count: White Blood Count 5.23 10^3/uL (4.4-10.8) 08/08/20 06:15 08/08/20 Red Blood Count 4.33 10^6/uL (4.36-5.78) L 08/08/20 06:08/08/20 Hemoglobin 13.6 g/dL (13.5-17.5) 08/08/20 12:05 08/08/20 Hematocrit 39.2 % (40.0-50.0) L 08/08/20 12:05 08/08/20 Platelet Count 176 10^3/uL (130-400) 08/08/20 06:15 08/08/20 Lactate 1.1 mmol/L (0.6-1.4) 07/13/19 13:00 07/13/19 Complete Metabolic Panel: Sodium Level 143 mmol/L (136-145) 08/08/20 06:08/08/20 Potassium Level 4.0 mmol/L (3.5-5.1) 08/08/20 06:08/08/20 Chloride Level 110 mmol/L (98-107) H 08/08/20 06:08/08/20 Carbon Dioxide Level 27.0 mmol/L (21.0-32.0) 08/08/20 06:08/08/20 Blood Urea Nitrogen 12 mg/dL (7-18) 08/08/20 06:08/08/20 Creatinine 1.1 mg/dL (0.70-1.30) 08/08/20 06:08/08/20 Magnesium Level 1.9 mg/dL (1.8-2.4) 08/08/20 06:08/08/20 Calcium Level 8.1 mg/dL (8.5-10.1) L 08/08/20 06:08/08/20 Albumin 2.9 g/dL (3.4-5.0) L 08/08/20 06:08/08/20 Glucose Level 97 mg/dL (74-106) 08/08/20 06:08/08/20 Hemoglobin A1c 5.3 % (<5.7) 08/08/20 06:15 08/08/20 C-Reactive Protein 0.13 mg/dL (0.0-0.3) 08/11/18 10:46 08/11/18 Liver Function Panel: Alanine Aminotransferase (ALT/SGPT) 28 U/L (16-63) 08/08/20 06:15 08/08/20 Aspartate Amino Transf (AST/SGOT) 10 U/L (15-37) L 08/08/20 06:15 08/08/20 Gamma Glutamyl Transpeptidase 46 U/L (15-85) 04/28/17 17:47 04/28/17 Coagulation Panel: INR International Normalized Ratio 1.0 (0.9-1.1) 06/07/19 06:25 06/07/19 Prothrombin Time 10.5 sec (9.3-11.0) 06/07/19 06:25 06/07/19 Activated Partial Thromboplast Time 26.1 sec (21.0-31.4) 06/07/19 06:25 06/07/19 Cardiac Panel: Troponin I < 0.05 ng/mL (<0.06) 08/08/20 06:15 08/08/20 LV-Hdb-H-Type Natriuretic Peptide 18 pg/mL (<300) 06/07/19 06:25 06/07/19 Arterial Blood Gas: No Data to Display Venous Blood Gas: Venous Blood Lactate 0.52 mmol/L (0.90-1.70) L 02/10/16 10:44 02/10/16 Pancreas Panel: Amylase Level 58 U/L (25-115) 03/10/19 11:40 03/10/19 Lipase 98 U/L (73-393) 08/07/20 11:15 08/07/20 Thyroid Panel: Thyroid Stimulating Hormone (TSH) 1.20 uIU/mL (0.36-3.74) 08/08/20 06:15 08/08/20 Infectious Disease: Coronavirus (COVID-19)(PCR) Negative (Negative) 08/07/20 17:25 08/07/20 Coronavirus 2019 Source Nasal/nares 08/07/20 17:25 08/07/20 Blood Cultures: No Data to Display Toxicology Panel: Ethyl Alcohol Level < 3.0 mg/dL (<3) 12/19/13 20:25 12/19/13 Urine Amphetamines Screen Negative (Negative) 08/07/20 12:25 08/07/20 Urine Benzodiazepines Screen Negative (Negative) 08/07/20 12:25 08/07/20 Urine Barbiturates Screen Negative (Negative) 08/07/20 12:25 08/07/20 Urine Cocaine Screen Negative (Negative) 08/07/20 12:25 08/07/20 Urine Methadone Screen Negative (Negative) 08/07/20 12:25 08/07/20 Urine Opiates Screen Positive (Negative) A 08/07/20 12:25 08/07/20 Ur Tricyclic Antidepressants Screen Negative (Negative) 08/07/20 12:25 08/07/20 Ur Tetrahydrocannabinol (THC) Scrn Positive (Negative) A 08/07/20 12:25 08/07/20 Imaging and Studies Imaging and Studies EKG Summary:: 08/07/20: sinus bradycardia at 52, normal axis, no major change from prior, no STEMI, nondiagnostic EKG I have reviewed and I agree with the emergency room physician's ECG interpretation. Anesthesia Assessment and Plan Anesthesia History Personal History: No History of Anesthesia Complications Family History: No Family History of Anesthesia Complications Exercise Tolerance Exercise Tolerance: Metabolic Equivalents>4 Pertinent Negatives Pertinent Negatives: No Symptoms of GERD Cardiac & Pulmonary Exam Cardiac Exam: Normal S1/S2 Heart Sounds Pulmonary Exam: Clear Bilateral Breath Sounds Airway Exam Known Difficult Airway: No Mallampati Class: 1 Mouth Opening: Normal (> 3cm) Thyromental Distance: Greater than 3 cm Neck Range of Motion: Full ROM Neck Circumference: Normal Teeth Condition: Normal Dentition ASA Classification ASA Score: ASA 2 Emergency Case?: No NPO Status NPO Status: NPO Clears >2 hours, Solids >8 hours Anesthesia Plan Anesthesia Technique: General Anesthesia Airway Planned: Natural Airway Monitors Used: Standard Monitors
[2020-08-08 12:24] LABS: HCT 39.2 % (40.0-50.0); HGB 13.6 g/dL (13.5-17.5)
[2020-08-08 12:57] VITALS: BMI 28.5
--- NOTE | 2020-08-08 13:35 | SCONE_ITS ---
Date of service: 08/08/20 Time of Service: 13:35 Assessment and Plan Assessment and plan (1) H/O acute gastritis: Status: Chronic (2) Nausea vomiting and diarrhea: Status: Acute (3) LUQ abdominal pain: Status: Acute (4) GERD (gastroesophageal reflux disease): Status: Acute (5) Diverticulitis of sigmoid colon: Status: Acute (6) Gastric ulcer: Status: Chronic (7) Hiatal hernia: Status: Chronic (8) Postcholecystectomy diarrhea: Status: Acute Assessment and plan: Patient was quite belligerent and refused to give me any history. He refused to have an EGD and wanted to be transferred to a different hospital. I do not feel comfortable treating and taking care of this patient. I did discuss the case with Dr. Teran. She does not have any availability for an elective EGD on 512 Recommend changing his PPI from omeprazole to Protonix as this may be contributing to his diarrhea Most likely he has post Kylah- diarrhea and I would treat with cholestyramine Send stool sample for fecal fat count. 45 45 minutes was spent to do a consult on this patient, to discuss his care and discuss doing a procedure. Patient BPH came quite well intermittent with a during the interview and it was terminated for provider safety. I discussed the case with anesthesia. I discussed the case with Dr. Rose and I discussed the case with Dr. Teran. Reviewing the chart and documentation History of Present Illness Narrative: from H&P: Chief Complaint: I have no quality of life right now LUQ pain, nausea/vomiting/diarrhea Narrative: Mr Senior is a 50 year old male with PMHx of chronic abdominal pain (he states since cholecystectomy in 07/18), as well as h/o duodenitis, gastritis, hemorrhagic ulcer, and hiatal hernia, who was sent to [facility] ED today by his PCP for complaints of LUQ pain, n/v/diarrhea and inability to keep down any food at home. The patient states that these symptoms started 2 weeks ago. Denies blood in stool or emetic contents. Stools have been posadas or brown, sometimes dark brown, like this morning. Stools have been oily. No one around his has been sick. He states he has been so miserable that he feels he has no quailty of life right now. The patient states that he had a low grade fever at home, but denies contact with anyone confirmed or suspected to have COVID-19. He is not vaccinated against COVID-19 and is not interested in receiving vaccination at this time. While in the ED, he had an episode of sharp pressure-like substernal chest pain accompanied by a sharp rise in BP, both of which were relieved with nitroglycerin. He states GI cocktail did not help him. He does admit to smoking canabis, but denies doing it in the last couple of weeks 07/26/19 LUNGS: Dependent increased markings posterior aspect both lower lobes again noted. No pleural effusions. There is a small pleural based noncalcified nodule again noted in the lateral basal segment of the left lobe which measures 5-6 millimeters, unchanged. There is also a similar size unchanged nodular density over the posterior basal segment left lower lobe (series 4/image 39) which is also unchanged. No additional lung nodules evident.. MEDIASTINUM: There is no hilar nor mediastinal adenopathy. Visualized thyroid unremarkable. CARDIAC: Heart size is normal. There is no pericardial effusion.Caliber of the thoracic aorta is within normal limits. OSSEOUS: No significant osseous lesions.. ABDOMEN: There is no ascites. LIVER: There are no focal hepatic lesions nor dilatation of intrahepatic ducts. GALLBLADDER/BILIARY: Surgically absent. Appendix surgically absent CBD is not dilated. PANCREAS: No evidence of pancreatic mass nor dilatation of the pancreatic duct. SPLEEN: Spleen is not enlarged. There are no intrasplenic lesions. Small splenule measuring 1 cm. Splenic and portal veins are patent. ADRENALS: There are no significant adrenal masses. KIDNEYS: No calculi nor hydronephrosis. No solid renal masses. There is 2 centimeter x 1.8 centimeter exophytic benign cysts off the lateral cortex of the right kidney. Tiny exophytic cyst off the posterior cortex of the left kidney. No solid renal masses calculi nor hydronephrosis. No hydroureter. No significant focal findings in the urinary bladder. ABDOMINAL AORTA: Abdominal aorta is not enlarged. LYMPH NODES: There is no retroperitoneal nor paraaortic adenopathy. ABDOMINAL WALL: No evidence of significant anterior abdominal wall hernia. GI: There is circumferential thickening of the sigmoid with prominent area of diverticuli. No streaking to suggest acute diverticulitis. No free air. No abscess. PELVIS: LYMPH NODES: There is no intrapelvic nor inguinal adenopathy. GI: Appendix is surgically absent.Sigmoid findings as above. URINARY BLADDER: No calculi nor masses evident REPRODUCTIVE: Prostate gland mildly enlarged. OSSEOUS: No significant osseous lesions. IMPRESSION: 1. Compared to prior CT scan of June 2019 there are again 2 stable noncalcified pulmonary nodules in the left lower lobe as described above. Also benign- appearing increased markings both lung bases. No pleural effusions. 2. Gallbladder surgically absent. The biliary tree is not dilated. 3. Appendix is surgically absent. No abscess. 4. Sigmoid wall thickening and diverticuli. No obvious acute diverticulitis. 5. Single benign cyst in each kidney. No other significant renal findings. No hydronephrosis. It was asked to see him by Dr. Carter regarding abdominal pain, nausea vomiting, and a mild decrease in hemoglobin. I did attempt to talk interview with the patient and discuss his signs and symptoms. Patient was very belligerent, angry, and hostile. He says he has been tested for everything and I should read the chart. He will not give me any family history he said he has been tested for H. pylori he and C. difficile and sprue. He has not been tested for sprue. He says he is only had chronic abdominal pain since he had his gallbladder out. Since he has had his gallbladder out he is also had severe nausea and diarrhea. For the past 2 weeks he has been vomiting. He is lost 20 pounds in the last year he states he has not eaten anything since last Friday. He cannot keep anything down. He has approximately 10 oily bowel movements a day. His electrolytes are normal. He insists that he has pancreatic insufficiency and that we should treat him for this. I further he became more angry and swore at me and said he wanted to go to a different hospital. At that point I terminated the interview and explained to him that that was his prerogative. I do not feel comfortable taking care of this patient. This is not an emergency situation his repeat hemoglobin was stable.. Patient has no fever. He has no white count. All his labs are essentially normal. He had a CT of the chest abdomen pelvis which is essentially normal and shows no hernias. He has been seen multiple times in our hospital. The records go back to 1999 and which show he has been complaining of chronic abdominal pain and diarrhea since that time. He had a colonoscopy in [address] Greenberg for diarrhea which did show diverticula. In 2016 he was in the ER complaining of abdominal pain. Dr. Teran consulted and saw the patient. His CT was normal at that time. She did comment that he had a history of opioid abuse. He had a EGD/CE in [address] Teran it did show gastritis/esophagitis. And diverticula/internal hemorrhoids He had an EGD with myself in 2019. This was significant for a bleeding gastric ulcer that was also supported by pathology. As well as duodenitis and gastritis which was reported by pathology. He also had a hiatal hernia. I did discuss the case with Dr. Teran. She does not have time to do an EGD on 512 as her day is full. At this point he mostly the has both Mariola diarrhea. We can send the Stool sample for fecal fat. I would treat him with cholestyramine once a day. Given his normal electrolytes I do not think his diarrhea is as severe as he alleges. Being that he is complaining of diarrhea he should switch from omeprazole to Protonix. He should also stop ibuprofen usage given his history of bleeding gastric ulcer. He has also not had a follow-up EGD to ensure that the ulcer has healed. On 07/18 he had a lap kylah with Dr. Martinez. The path did show chronic cholecystitis Consults Consult date: 08/08/20 Requesting physician: Ruth Carter Review of Systems All systems reviewed & are unremarkable except as noted in HPI and below and Unobtainable due to mental status [facility] Medical History Depression Diverticulitis Duodenitis Gastric ulcer Gastritis GERD (gastroesophageal reflux disease) Hiatal hernia History of urinary urgency Surgical History (Updated 07/26/19 @ 13:12 by Hortensia Young RN) Appendectomy Colonoscopy - MAC (05/13/17) EGD - MAC (05/13/17) S/P laparoscopic cholecystectomy (~07/26/19) wrist surgery Family History (Updated 08/07/20 @ 18:06 by Ruth Carter MD) Maternal Grandmother Hypertension Diabetes Mother Stroke Cancer ovarian Maternal Grandfather Cancer lung Social History Smoking/Tobacco Use Status: Former Tobacco Use Smoking risk assessment performed?: Yes Alcohol Intake: never Drug use: Occasionally Substance use type: marijuana Details: 07/25/19 last used Do you feel safe at home: Yes Do you feel safe in your relationship?: Yes Exam Narrative Exam Narrative: Patient refused physical exam Results Last Vital Signs Temp 36.8 C 08/08/20 11:25 Pulse 48 L 08/08/20 11:25 Resp 19 08/08/20 11:25 BP 165/96 H 08/08/20 11:25 Pulse Ox 98 08/08/20 11:25 Labs Result diagrams: 08/08/20 12:05 08/08/20 06:15 Labs: Laboratory Results - last 24 hr 08/07/20 08/07/20 08/07/20 12:25 14:30 17:25 WBC RBC Hgb Hct MCV MCH MCHC RDW Plt Count MPV Immature Gran % Neutrophils % Lymphocytes % Monocytes % Eosinophils % Basophils % Nucleated RBC % Absolute Neutrophils Absolute Lymphocytes Absolute Monocytes Absolute Eosinophils Absolute Basophils Sodium Potassium Chloride Carbon Dioxide Anion Gap BUN Creatinine Estimated GFR/1.73 m2 Glucose Hemoglobin A1c Calcium Magnesium Total Bilirubin Conjugated Bilirubin AST ALT Alkaline Phosphatase Troponin I < 0.05 Total Protein Albumin TSH Urine Opiates Screen Positive A Urine Methadone Screen Negative Ur Barbiturates Screen Negative Ur Tricyclics Screen Negative Ur Amphetamines Screen Negative U Benzodiazepines Scrn Negative Urine Cocaine Screen Negative Ur THC Screen Positive A COVID-19 Source Nasal/nares SARS-CoV-2 (PCR) Negative 08/08/20 08/08/20 08/08/20 06:15 06:15 06:15 WBC 5.23 RBC 4.33 L Hgb 13.2 L D Hct 38.3 L MCV 88.5 MCH 30.5 MCHC 34.5 RDW 12.0 Plt Count 176 MPV 9.7 Immature Gran % 0.4 Neutrophils % 45.2 Lymphocytes % 44.6 Monocytes % 6.9 Eosinophils % 2.1 Basophils % 0.8 Nucleated RBC % 0 Absolute Neutrophils 2.37 Absolute Lymphocytes 2.33 Absolute Monocytes 0.36 Absolute Eosinophils 0.11 Absolute Basophils 0.04 Sodium 143 Potassium 4.0 Chloride 110 H Carbon Dioxide 27.0 Anion Gap 6.0 BUN 12 D Creatinine 1.1 Estimated GFR/1.73 m2 >= 60.00 Glucose 97 Hemoglobin A1c 5.3 Calcium 8.1 L Magnesium 1.9 Total Bilirubin 0.7 Conjugated Bilirubin 0.1 AST 10 L ALT 28 Alkaline Phosphatase 73 Troponin I < 0.05 Total Protein 5.3 L Albumin 2.9 L TSH 1.20 Urine Opiates Screen Urine Methadone Screen Ur Barbiturates Screen Ur Tricyclics Screen Ur Amphetamines Screen U Benzodiazepines Scrn Urine Cocaine Screen Ur THC Screen COVID-19 Source SARS-CoV-2 (PCR) 08/08/20 12:05 WBC RBC Hgb 13.6 Hct 39.2 L MCV MCH MCHC RDW Plt Count MPV Immature Gran % Neutrophils % Lymphocytes % Monocytes % Eosinophils % Basophils % Nucleated RBC % Absolute Neutrophils Absolute Lymphocytes Absolute Monocytes Absolute Eosinophils Absolute Basophils Sodium Potassium Chloride Carbon Dioxide Anion Gap BUN Creatinine Estimated GFR/1.73 m2 Glucose Hemoglobin A1c Calcium Magnesium Total Bilirubin Conjugated Bilirubin AST ALT Alkaline Phosphatase Troponin I Total Protein Albumin TSH Urine Opiates Screen Urine Methadone Screen Ur Barbiturates Screen Ur Tricyclics Screen Ur Amphetamines Screen U Benzodiazepines Scrn Urine Cocaine Screen Ur THC Screen COVID-19 Source SARS-CoV-2 (PCR)
--- NOTE | 2020-08-08 13:50 | CHAPLAIN ---
Malachi said he is mostly frustrated. He's not feeling well and his girlfriend left for [place] the day before he was admitted here. He's frustrated with a lack of answers ands not being able to see his girlfriend. On top of that, his mom spoke with a physician yesterday, and was told she could visit Malachi, but was not told about the visiting and arrived here, from [place], [place], after visiting hours and was not allowed in.
[2020-08-08 15:09] VITALS: PULSE 56
--- NOTE | 2020-08-08 15:56 | DSE_ITS ---
Date of service: 08/08/20 Time of Service: 15:57 DS: Diagnosis Discharge Diagnosis (1) LUQ abdominal pain: Status: Acute (2) Gastric ulcer: Status: Suspected (3) Nausea vomiting and diarrhea: Status: Acute (4) Chest pain, non-cardiac: Status: Acute (5) H/O acute gastritis: Status: Chronic (6) GERD (gastroesophageal reflux disease): Status: Acute (7) Diverticulitis of sigmoid colon: Status: Acute (8) Hiatal hernia: Status: Chronic (9) Postcholecystectomy diarrhea: Status: Acute (10) COVID-19 ruled out by laboratory testing: Status: Ruled-out (11) Aggressive behavior of adult: Status: Acute Discharge Plan Disposition Patient Disposition: AGAINST MEDICAL ADVICE Condition: Stable Discharge Details Reason For Visit: SUSPECTED ACUTE GASTRITIS Admit Date/Time: 08/07/20 17:19 Admit Provider: Ruth Carter Attending Provider: Ruth Carter Primary Care Provider: Nanci Spivey [facility] Course Hospital Course: Mr Senior is a 50 year old male with PMHx of gastritis, duodenitis, hemorrhagic ulcer, as well as h/o chronic post-cholecystectomy pain who was observed on [facility] hospitalist service from 08/07/20 until 08/08/20 when he left AMA having presented with LUQ pain, initial reports of n/v/diarrhea for 2 weeks (which he later stated happened for 5 days), and chest pain. He ruled out for ACS and the chest pain is believed to be likely player services representative of esophageal spasm. He was treated with IV PPI and carafate with suspicion that he might have a new gastric ulcer and was expected to undergo an EGD on 08/08/20 by general surgery. However, during his interaction with our general surgeon, Dr Warner, the patient was verbally aggressive and, therefore, the procedure was deferred. No other surgeon could offer him to have this procedure in a timely manner. The patient was feeling better with no episodes of emesis in the last 24 hrs. For this reason, we felt that transfer to a tertiary care facility would not be indicated, but continued medical therapy at our facility might be appropriate with outpatient follow up with GI. Dr Warner also felt the patient might be having post-cholecystectomy diarrhea and cholestyramine or banatrol might be useful. The patient left before prescriptions could be given to him and they are being sent electronically. Case discussed with both Dr Warner and Dr Leroy. Care for patient on day of discharge took 45 minutes. Home Meds and New Rx's Prescriptions: New pantoprazole [Protonix] 40 mg tablet,delayed release (DR/EC) 40 mg PO DAILY Qty: 30 RF: 0 sucralfate [Carafate] 1 gram tablet 1 g PO QACHS Qty: 120 RF: 0 ondansetron 4 mg tablet,disintegrating 4 mg translingual Q8H PRN (Reason: nausea and vomiting) Qty: 10 RF: 0 cholestyramine (with sugar) [Questran] 4 gram powder 1 pwd PO BID Qty: 378 RF: 0 Discontinued omeprazole 40 MG capsule,delayed release(DR/EC) 40 mg PO DAILY RF: 0 ibuprofen [IBU-200] 200 mg tablet 600 mg PO Q8H PRN (Reason: pain) Qty: 60 RF: 0 Discharge Instructions Ref[place] [place] - Solitario Leroy [ [facility] STAFF PHYSICIAN] - Activity:: Activity as Tolerated Equipment/Supplies:: No Equipment Needed Diet:: As Tolerated Discharge Orders Discharge Orders: Discharge Order (Routine); Ordered 08/08/20 Ordered By: Ruth Carter Discharge Data Discharge Date/Time-TO BE ENTERED AT DEPARTURE: 08/08/20 15:38 DS: Summary Time Spent with Patient providing and/or coordinating discharge services: Greater than 30 minutes Status at Discharge Functional status at discharge: independent ambulation Overall status at discharge: patient is progressing back to baseline Mental Status: mental status grossly normal Speech and Movement: agitated Mood: angry Affect: hostile Exam Narrative Exam Narrative: General: Anxious Obese male who is verbally aggressive and keeps making fists while talking to myself and his nurse HEENT:EOMI, MMM Cardiovascular: not auscultated on day the patient left AMA Lungs: Nonlabored breathing; not auscultated on day the patient left AMA Gastrointestinal: not distended Extremities: no edema BLE's Psych Mental Status: mental status grossly normal Speech and Movement: agitated Mood: angry Affect: hostile DS: Data Vitals/I&O Vitals and I&O: Vital Signs Temperature 36.8 C 08/08/20 11:25 Temperature Source Tympanic 08/08/20 11:25 Pulse 56 L 08/08/20 15:09 Pulse Rhythm Regular 08/08/20 07:31 Pulse 47 L 08/07/20 17:50 Respiratory Rate 19 08/08/20 11:25 Respiratory Effort Non-Labored 08/08/20 07:31 Respiratory Depth Normal 08/08/20 07:31 Respiratory Pattern Normal 08/08/20 07:31 Blood Pressure 165/96 H 08/08/20 11:25 Blood Pressure Mean 101 08/07/20 17:46 Blood Pressure Position Supine 08/07/20 11:06 Pulse Oximetry 98 08/08/20 11:25 Oxygen Delivery Method Room Air 08/08/20 11:25 Oxygen Flow Rate 0 08/08/20 11:25 Pain Level 7 08/08/20 15:15 Comment 08/08/20 00:16 Intake & Output 08/07/20 08/08/20 08/08/20 23:59 11:59 23:59 Intake Total 2862.5 / 2862.5 999 / 1999 999 / 1999 Output Total 275 / 275 115 / 2049 900 / 2049 Balance 2587.5 / 2587.5 -150 / -50 100 / -50 Weight 95.5 kg 95.5 kg Intake: IV 2862.5 / 2862.5 999 / 1999 999 / 1999 Output: Urine 275 / 275 115 / 0 900 / 2049 Other: Urine Color Straw Pale Pale Yellow Yellow Urine Appearance Clear Clear Clear Urine Odor Normal None None Comment Void x1 in the urinal. Void x1 in the urinal. Voiding Methods Urinal Urinal Urinal Data Completed and Pending Completed studies during hospitalization [Text1]: CT chest/abdomen/pelvis: 1. Compared to prior CT scan of June 2019 there are again 2 stable noncalcified pulmonary nodules in the left lower lobe as described above. Also benign- appearing increased markings both lung bases. No pleural effusions. 2. Gallbladder surgically absent. The biliary tree is not dilated. 3. Appendix is surgically absent. No abscess. 4. Sigmoid wall thickening and diverticuli. No obvious acute diverticulitis. 5. Single benign cyst in each kidney. No other significant renal findings. No hydronephrosis. Labs on day of discharge: Labs from last 24 hours 08/08/20 08/08/20 08/08/20 12:05 06:15 06:15 WBC 5.23 RBC 4.33 L Hgb 13.6 13.2 L D Hct 39.2 L 38.3 L MCV 88.5 MCH 30.5 MCHC 34.5 RDW 12.0 Plt Count 176 MPV 9.7 Immature Gran % 0.4 Neutrophils % 45.2 Lymphocytes % 44.6 Monocytes % 6.9 Eosinophils % 2.1 Basophils % 0.8 Nucleated RBC % 0 Absolute Neutrophils 2.37 Absolute Lymphocytes 2.33 Absolute Monocytes 0.36 Absolute Eosinophils 0.11 Absolute Basophils 0.04 Sodium Potassium Chloride Carbon Dioxide Anion Gap BUN Creatinine Estimated GFR/1.73 m2 Glucose Hemoglobin A1c 5.3 Calcium Magnesium Total Bilirubin Conjugated Bilirubin AST ALT Alkaline Phosphatase Troponin I Total Protein Albumin TSH Urine Opiates Screen Urine Methadone Screen Ur Barbiturates Screen Ur Tricyclics Screen Ur Amphetamines Screen U Benzodiazepines Scrn Urine Cocaine Screen Ur THC Screen COVID-19 Source SARS-CoV-2 (PCR) 08/08/20 08/07/20 08/07/20 06:15 17:25 12:25 WBC RBC Hgb Hct MCV MCH MCHC RDW Plt Count MPV Immature Gran % Neutrophils % Lymphocytes % Monocytes % Eosinophils % Basophils % Nucleated RBC % Absolute Neutrophils Absolute Lymphocytes Absolute Monocytes Absolute Eosinophils Absolute Basophils Sodium 143 Potassium 4.0 Chloride 110 H Carbon Dioxide 27.0 Anion Gap 6.0 BUN 12 D Creatinine 1.1 Estimated GFR/1.73 m2 >= 60.00 Glucose 97 Hemoglobin A1c Calcium 8.1 L Magnesium 1.9 Total Bilirubin 0.7 Conjugated Bilirubin 0.1 AST 10 L ALT 28 Alkaline Phosphatase 73 Troponin I < 0.05 Total Protein 5.3 L Albumin 2.9 L TSH 1.20 Urine Opiates Screen Positive A Urine Methadone Screen Negative Ur Barbiturates Screen Negative Ur Tricyclics Screen Negative Ur Amphetamines Screen Negative U Benzodiazepines Scrn Negative Urine Cocaine Screen Negative Ur THC Screen Positive A COVID-19 Source Nasal/nares SARS-CoV-2 (PCR) Negative [facility] Medical History Depression Diverticulitis Duodenitis Gastric ulcer Gastritis GERD (gastroesophageal reflux disease) Hiatal hernia History of urinary urgency Surgical History (Updated 07/26/19 @ 13:12 by Hortensia Young RN) Appendectomy Colonoscopy - MAC (05/13/17) EGD - MAC (05/13/17) S/P laparoscopic cholecystectomy (~07/26/19) wrist surgery Family History (Updated 08/07/20 @ 18:06 by Ruth Carter MD) Maternal Grandmother Hypertension Diabetes Mother Stroke Cancer ovarian Maternal Grandfather Cancer lung Social History Smoking/Tobacco Use Status: Former Tobacco Use Smoking risk assessment performed?: Yes Alcohol Intake: never Drug use: Occasionally Substance use type: marijuana Details: 07/25/19 last used Do you feel safe at home: Yes Do you feel safe in your relationship?: Yes
== END 2020-08-08 15:38 | disposition left against medical advice (07) ==
LOC: ER 17:54 → MS 19:09
PROVIDERS: Student in an Organized Health Care Education/Training Program; Admitting Provider Internal Medicine; Emergency Provider Emergency Medicine; PCP Nurse Practitioner Family; Visit Provider Internal Medicine
DX: R11.2 Nausea with vomiting, unspecified (principal); R07.89 Other chest pain; R10.12 Left upper quadrant pain; K91.5 Postcholecystectomy syndrome; K21.9 Gastro-esophageal reflux disease without esophagitis; K44.9 Diaphragmatic hernia without obstruction or gangrene; Z20.822 Contact with and (suspected) exposure to COVID-19; F91.1 Conduct disorder, childhood-onset type; K57.92 Diverticulitis of intestine, part unspecified, without perforation or abscess without bleeding
CPT/HCPCS: 36410; 36415; 74177; 80048; 80053; 80076; 80307; 83690; 87635; 93005; 96361; 96374; 96375; 99285; 71260; 81003; 81015; 83036; 83735; 84443; 84484; 85014; 85018; 85025; 93010; 99217; 99220; G0378; J2405; J3490

== ENCOUNTER 2020-10-21 10:17 | Emergency (ER) | payer MEDICAID, SELFPAY ==
[2020-10-21] VITALS (34 sets, daily range): BP systolic 133–163; BP diastolic 87–107; PULSE 48–69; RESP 10–23; TEMP 36.6; O2SAT 94–98
--- NOTE | 2020-10-21 10:15 | RT.EKG_ITS ---
APPROVED REPORT Exam: Resting ECG Reason for Exam: near syncope Patient Location: E HR:61 bpm ECG Measurements Heart Rate 61 AXIS CO 207 P 27 QRSd 91 QRS 26 QT 426 T 17 QTc 430 Conclusion Sinus rhythm.. Borderline prolonged CO interval...CO >202, V-rate 50- 90
--- NOTE | 2020-10-21 10:30 | DI.CT_ITS ---
Exam(s) CT BRAIN NECK CTA EXAM: CT BRAIN NECK CTA CLINICAL HISTORY: dizziness, headache. TECHNIQUE: Imaging Protocol: Axial CT angiography was performed with multi-slice acquisition and mu lti-planar and/or 3D reconstructions. CONTRAST MATERIAL: Intravenous: Omnipaque 350 Contrast volume:85 mL COMPARISON: CT CT HEAD WO from 08/11/2018 FINDINGS: CT Head W/O and W: Ventricles and Extra axial spaces: Normal in size and morphology for the patient's age. Hemorrhage: None. Cerebral parenchyma: Normal. No acute territorial infarct. Midline shift: None. Brainstem/Cerebellum: Normal. Calvarium: Normal. Visualized Paranasal sinuses/Mastoids: Clear. Soft Tissues: Unremarkable. Enhancement: Unremarkable. CTA Neck W: Common Carotid: Right: No dissection, occlusion or significant stenosis. Left: No dissection, occlusion or significant stenosis. External Carotid: Right: No occlusion or significant stenosis. Left: No occlusion or significant stenosis. Internal Carotid: Right: No dissection, occlusion or significant stenosis. Left: No dissection, occlusion or significant stenosis. Vertebral Artery: Right: No dissection, occlusion or significant stenosis. Left: No dissection, occlusion or significant stenosis. Lung Apices: Normal. Bones: Mild degenerative changes are seen in the cervical spine. Soft Tissues: Normal. CTA Brain W: Internal Carotid Arteries: Petrous: Normal. Cavernous: Normal. Cerebral: Normal. Anterior Cerebral Arteries: Right: No aneurysm, occlusion or significant stenosis. Left: No aneurysm, occlusion or significant stenosis. Middle Cerebral Arteries: Right: No aneurysm, occlusion or significant stenosis. Left: No aneurysm, occlusion or significant stenosis. Posterior cerebral Arteries: Right: No aneurysm, occlusion or significant stenosis. Left: No aneurysm, occlusion or significant stenosis. Vertebral Arteries: Right: No aneurysm, occlusion or significant stenosis. Left: No aneurysm, occlusion or significant stenosis. Basilar Artery: No aneurysm, occlusion or significant stenosis. IMPRESSION: 1. Normal CTA examination of the [place]. No evidence of occlusion or significant stenosis. 2. Unremarkable noncontrast CT Head. 3. Normal CTA examination of the neck. No evidence of occlusion or significant stenosis. RADIATION DOSE DELIVERED: 2,225.46mGy.cm Total DLP DATA REPOSITORY: All CT scans at this facility are submitted to the National Radiology Data Registry (NRDR) Dose Index Registry (DIR) with the [employer] (ACR). RADIATION OPTIMIZATION: All CT scans at this facility use at least one of these dose optimization te chniques: automated exposure control; mA and/or kV adjustment per patient size (includes targeted exa ms where dose is matched to clinical indication); or iterative reconstruction.
--- NOTE | 2020-10-21 10:42 | W.ED.GENAD ---
Discharge Plan Disposition Patient Disposition: HOME Condition: Improving Discharge Details Clinical Impression: Vertigo Primary Care Provider: Nanci Spivey ED Provider: Rafael Almanza Home Meds and New Rx's Prescriptions: New meclizine 25 mg tablet 25 mg PO TID PRN (Reason: dizziness or vertigo) Qty: 10 RF: 0 Continued omeprazole 40 mg capsule,delayed release(DR/EC) 40 mg PO DAILY RF: 0 meloxicam 7.5 mg tablet 7.5 mg PO DAILY RF: 0 Discharge Instructions Instructions: Vertigo (ED) Additional Instructions: Sleep with head of bed elevated 2-3 pillows for the next 2-3 nights. No rapid movements of the head or bending over rapidly. May use meclizine, as needed for persistent vertigo. Please follow-up with physical therapy. Return for worsening or any other acute concerns. Stand Alone Forms: Physical Therapy Referral Medical Decision Making 50-year-old male presents with intermittent episodes of dizziness, lightheadedness, mild headache. He felt some unsteadiness of gait this week at work. He is not fallen or injured himself. With the episodes of dizziness he has had some diaphoresis and nausea. No focal motor weakness and no numbness present. Arrives to the ER pressure 152/91 pulse 66. He does have 3-4 beat horizontal nystagmus with leftward gaze. He is able to walk and exam is otherwise reassuring. Differential diagnosis includes peripheral versus central mediated vertigo. Patient given meclizine, IV access was established, he is given a fluid bolus, referred for CT CTA. Patient's laboratories reveal a elevated BUN over baseline, noting some dehydration. His CBC is unremarkable, chemistries otherwise reassuring and troponin negative. Heart rate 85 on room air Imaging: Nothing CTA of brain and neck without acute findings. Chest x-ray unremarkable. Patient with persistent vertiginous symptoms and given Valium IV. Patient does have him some improvement with this. Discussed with him that his neuroimaging is reassuring. We will trial meclizine and improved positioning at home over the next 2 days time. I will refer him for outpatient vestibular rehabilitation. He understands indications to return to the ER and is stable and improved time. HPI General Mode of arrival: ambulatory. Date/Time Provider Initiated Documentation: 10/21/20 10:17. Limitations to Documentation: no limitations. Information obtained by: patient. History of Present Illness 50 year old M presents to the emergency department with the chief complaint of Intermittent episodes of dizziness and headache., described as moderate, and is localized to the head. Patient reports no radiation. Patient started experiencing this day(s) and it has been intermittent. Rest improves symptom(s), Other factors that worsen symptoms (Worse with quick movements of the head) . Patient notes headaches and nausea/vomiting; denies confusion, chest pain, fever/chills, shortness of breath, syncope and weakness. Patient did receive the following treatments prior to arrival, none Related Data Home Medications Medication Instructions Recorded Confirmed meclizine 25 mg PO TID PRN #10 tab 10/21/20 meloxicam 7.5 mg PO DAILY 10/21/20 10/21/20 omeprazole 40 mg PO DAILY 10/21/20 10/21/20 Previous Rx's Medication Instructions Recorded meclizine 25 mg PO TID PRN #10 tab 10/21/20 Allergies Allergy/AdvReac Type Severity Reaction Status Date / Time morphine AdvReac Unverified 10/21/20 10:27 General Stated Complaint: Dizzy/Sync NEELIMA: 2 Review of Systems Narrative: No fall or injury. No fever, rash, recent illness. No change to medications. 8 systems reviewed and otherwise negative [facility] Medical History Depression Diverticulitis Duodenitis Gastric ulcer Gastritis GERD (gastroesophageal reflux disease) Hiatal hernia History of urinary urgency Surgical History (Updated 07/26/19 @ 13:12 by Hortensia Young RN) Appendectomy Colonoscopy - MAC (05/13/17) EGD - MAC (05/13/17) S/P laparoscopic cholecystectomy (~07/26/19) wrist surgery Family History Maternal Grandmother Hypertension Diabetes Mother Stroke Cancer ovarian Maternal Grandfather Cancer lung Social History Smoking/Tobacco Use Status: Former Tobacco Use Smoking risk assessment performed?: Yes Alcohol Intake: current Alcohol Intake frequency: a few times a month Alcohol type: hard liquor Drug use: Occasionally Substance use type: marijuana Do you feel safe at home: Yes Do you feel safe in your relationship?: Yes Exam Narrative Exam Narrative: GEN: awake, alert, oriented 3. Pleasant, well groomed, interactive. HEAD: Normocephalic, atraumatic ENT: Mucous membranes moist, oropharynx unremarkable, External ear exam unremarkable EYES: PERRL, EOMI NECK: Full ROM, no NATY, no menigismus CHEST/RESP: Nontender, clear to auscultation bilateral, no wheeze/rhonchi/rales CARDIOVASCULAR: RRR, no murmur, rub dudley. 2+ Rad pulse bilateral ABDOMEN: Soft, nontender, no mass. +Bowel sounds EXT: Full ROM, no edema, no rash Neuro: Cranial nerves II through XII intact. There is left gaze horizontal nystagmus present. Patient able to walk with narrow based gait and good heel strike. Otherwise grossly normal neurologic exam, conversant, interactive. Psych: Speech fluent, thoughts congruent, affect normal Course Vital Signs Vital signs: Vital Signs Temperature 36.6 C 10/21/20 10:20 Pulse 66 10/21/20 10:20 Respiratory Rate 23 10/21/20 10:20 Blood Pressure 152/91 H 10/21/20 10:20 Pulse Oximetry 97 10/21/20 10:20 Temperature 36.6 C 10/21/20 10:20 Temperature Source Temporal Artery Scan 10/21/20 10:20 Pulse 66 10/21/20 10:20 Respiratory Rate 23 10/21/20 10:20 Respiratory Effort Non-Labored 10/21/20 10:25 Blood Pressure 152/91 H 10/21/20 10:20 Blood Pressure Position Supine 10/21/20 10:20 Pulse Oximetry 97 10/21/20 10:20 Oxygen Delivery Method Room Air 10/21/20 10:20 Oxygen Flow Rate 0 10/21/20 10:20 Pain Level 7 10/21/20 10:20
--- NOTE | 2020-10-21 10:45 | DI.RAD_ITS ---
Exam(s) XR CHEST 2V PA LATERAL EXAM: XR CHEST 2V PA LATERAL CLINICAL HISTORY: vertigo TECHNIQUE: 2D digital imaging was performed. COMPARISON: CR,XR XR CHEST 2V PA LATERAL from 06/07/2019 FINDINGS: MEDIASTINUM: Normal. HEART: Normal. PULMONARY VASCULATURE: Normal. LUNGS: Clear. PLEURAL SPACE: No pleural effusion or pneumothorax. BONE:Within normal limits for the patient's age. OTHER FINDINGS:Normal. IMPRESSION: No acute pulmonary findings. DATA REPOSITORY: RADIATION DOSE DELIVERED:
[2020-10-21 10:54] LABS: Abs Immature Grans 0.06 10^3/uL (0.0-0.06); Absolute Basophil Count 0.09 10^3/uL (0.0-0.2); Absolute Eosinophil Count 0.22 10^3/uL (0.0-0.7); Absolute Lymphocyte Count 2.92 10^3/uL (1.2-3.4); Absolute Monocyte Count 0.52 10^3/uL (0.1-0.8); Absolute Neutrophil Count 2.08 10^3/uL (1.2-6.7); Basophils % 1.5; Eosinophils % 3.7; HCT 43.9 % (40.0-50.0); HGB 15.4 g/dL (13.5-17.5); Lymphocytes % 49.6; MCH 30.3 pg (27.0-33.0); MCHC 35.1 % (32.0-36.0); MCV 86.2 fL (80-95); MPV 9.7 fL (8.0-11.0); Monocytes % 8.8; Neutrophils % 35.4; Nucleated RBC 0 %; Platelet Count 238 10^3/uL (130-400); RBC 5.09 10^6/uL (4.36-5.78); RDW 11.7 % (11.8-14.1); RDW-SD 37.1 fL; WBC 5.89 10^3/uL (4.4-10.8)
[2020-10-21] MEDS: Meclizine 25 MG TAB PO ×2 (10:56→13:45)
[2020-10-21] MEDS: Normal Saline 1,000 ML 1000 ML IV (10:57)
[2020-10-21 11:10] LABS: ALT 29 U/L (16-63); AST 14 U/L (15-37); Alkaline Phosphatase 104 U/L (46-116); Anion Gap 8.4 mmol/L (3-11); BUN 22 mg/dL (7-18); CO2 27.6 mmol/L (21.0-32.0); CREATININE 1.1 mg/dL (0.70-1.30); Calcium 8.8 mg/dL (8.5-10.1); Chloride 106 mmol/L (98-107); Glucose 106 mg/dL (74-106); Potassium 3.8 mmol/L (3.5-5.1); Sodium 142 mmol/L (136-145); Total Protein 7.1 g/dL (6.4-8.2)
[2020-10-21 11:12] LABS: Troponin I < 0.05 ng/mL (<0.06)
[2020-10-21] MEDS: Omnipaque 350 MG/ML 100 ML BTL IJ (11:34)
[2020-10-21] MEDS: Normal Saline Flush 10 ML SYR IVP (11:35)
[2020-10-21] MEDS: Normal Saline - Diluent 50 ML VIAL IV (11:35)
--- NOTE | 2020-10-21 12:23 | DI.VRAD_ITS ---
PROCEDURE INFORMATION: Exam: CT Angiography Head With Contrast, Arteriography Exam date and time: 10/21/2020 10:42 AM Age: 50 years old Clinical indication: Pain; Headache and vertigo TECHNIQUE: Imaging protocol: Computed tomography angiography of the head with contrast. Exam focused on the arteries. 3D rendering (Not supervised by radiologist): MIP and/or 3D reconstructed images were created by the technologist. Contrast material: OMNIPAQUE 350; Contrast volume: 85 ml; Contrast route: INTRAVENOUS (IV); COMPARISON: CT HEAD WO 08/11/2018 12:23 PM FINDINGS: ANTERIOR CIRCULATION: Right internal carotid artery: Intracranial segment is patent with no significant stenosis. No aneurysm. Right middle cerebral artery: No occlusion or significant stenosis. No aneurysm. Right anterior cerebral artery: No occlusion or significant stenosis. No aneurysm. Left internal carotid artery: Intracranial segment is patent with no significant stenosis. No aneurysm. Left middle cerebral artery: No occlusion or significant stenosis. No aneurysm. Left anterior cerebral artery: . No occlusion or significant stenosis. No aneurysm. POSTERIOR CIRCULATION: Right vertebral artery: No occlusion or significant stenosis. No aneurysm. Left vertebral artery: No occlusion or significant stenosis. No aneurysm. Basilar artery: No occlusion or significant stenosis. No aneurysm. Right posterior cerebral artery: No occlusion or significant stenosis. No aneurysm. Left posterior cerebral artery: No occlusion or significant stenosis. No aneurysm. Brain: No definite mass, mass effect, or midline shift. Cerebral ventricles: No ventriculomegaly. Bones/joints: Unremarkable. No acute fracture. Soft tissues: Unremarkable. Larynx: There is mild dilatation of the right laryngeal ventricle. IMPRESSION: 1. No major vessel cut off or high-grade stenosis in the arteries of the [id number]. 2. No definite intracranial aneurysm. PROCEDURE INFORMATION: Exam: CT Angiography Neck With Contrast Exam date and time: 10/21/2020 10:42 AM Age: 50 years old Clinical indication: Pain; Headache and vertigo TECHNIQUE: Imaging protocol: Computed tomography angiography of the neck with contrast. 3D rendering (Not supervised by radiologist): MIP and/or 3D reconstructed images were created by the technologist. Contrast material: OMNIPAQUE 350; Contrast volume: 85 ml; Contrast route: INTRAVENOUS (IV); COMPARISON: CT HEAD WO 08/11/2018 12:23 PM FINDINGS: Right common carotid artery: No stenosis. No dissection or occlusion. Right internal carotid artery: No stenosis of the extracranial segment. No dissection or occlusion. Right external carotid artery: No occlusion or stenosis of the origin. Left common carotid artery: No stenosis. No dissection or occlusion. Left internal carotid artery: No stenosis of the extracranial segment. No dissection or occlusion. Left external carotid artery: No occlusion or stenosis of the origin. Right vertebral artery: No stenosis. No dissection or occlusion. Left vertebral artery: No stenosis. No dissection or occlusion. Soft tissues: Normal. No significant soft tissue swelling. Bones/joints: No acute fracture. IMPRESSION: No stenosis or occlusion. REFERENCES: NASCET CRITERIA. The degree of internal carotid artery stenosis is based on NASCET criteria. Normal is no stenosis. Mild is less than 50% stenosis. Moderate is 50-69% stenosis. Severe is 70% to 99% stenosis. Total occlusion is no detectable patent lumen. Dictated and Authenticated by: Nate Isaac MD. Ordering:CARY Hall MD
--- NOTE | 2020-10-21 12:24 | DI.VRAD_ITS ---
PROCEDURE INFORMATION: Exam: XR Chest Exam date and time: 10/21/2020 10:46 AM Age: 50 years old Clinical indication: Other: Vertigo TECHNIQUE: Imaging protocol: XR of the chest. Views: 2 views. COMPARISON: CT CHEST/ABD/PEL W 08/07/2020 3:11 PM FINDINGS: Lungs: Unremarkable. No consolidation. Pleural spaces: Unremarkable. No pleural effusion. No pneumothorax. Heart/Mediastinum: Unremarkable. No cardiomegaly. Bones/joints: Unremarkable. IMPRESSION: No acute findings. Dictated and Authenticated by: Nate Isaac MD. Ordering:CARY Hall MD
[2020-10-21] MEDS: diazePAM 10 MG/2 ML SYR 5 MG IVP (12:50)
== END 2020-10-21 13:56 | disposition home or self-care (01) ==
PROVIDERS: Emergency Provider Emergency Medicine; PCP Nurse Practitioner Family
DX: R42 Dizziness and giddiness (principal)
CPT/HCPCS: 36415; 70496; 70498; 80053; 93005; 96361; 96374; 99285; 71046; 83735; 84484; 85025; 93010; 99284; J3360; J3490

== ENCOUNTER 2020-10-31 23:50 | Emergency (ER) | payer MEDICAID, SELFPAY ==
[2020-10-31 23:56] VITALS: PULSE 78; RESP 20; TEMP 36.5; O2SAT 95
--- NOTE | 2020-11-01 00:12 | ED.GENADUL_ITS ---
Discharge Plan Disposition Patient Disposition: OTHER Condition: Stable Discharge Details Chief Complaint: Orthopedic Clinical Impression: Left shoulder pain Primary Care Provider: Nanci Spivey ED Provider: Dung Valero Home Meds and New Rx's Prescriptions: No Action omeprazole 40 mg capsule,delayed release(DR/EC) 40 mg PO DAILY RF: 0 meloxicam 7.5 mg tablet 7.5 mg PO DAILY RF: 0 meclizine 25 mg tablet 25 mg PO TID PRN (Reason: dizziness or vertigo) Qty: 10 RF: 0 Medical Decision Making 50 yo male who states he had arthroscopic surgery on his left shoulder in [place] on 10/31 and had no complications per his report comes in with gradually increasing pain since the surgery despite taking prescribed oxycodone. He denies fevers or chills but refused to answer most other questions until he had pain medication. I advised I needed to do an assessment first which he declined and would not let me examine the shoulder prior to pain medication. He was verbally abusive towards nursing and myself and would swear frequently. He is caox4 and has no slurred speech and is clinically sober and had capacity to make his own decisions. Prior to me completing initial physical exam and history he decided he was eloping from the ED. I do not feel he requires a call back as he does have capacity to make his own decisions. HE did not want to stay for any further questioning and walked out of the ED without assistance and steady gait. HE was told if he would want to have a complete exam and history done and changes his mind he can always return to the emergency department. Differential Diagnosis Differential Diagnosis: muscle spasm, post operative pain HPI General Mode of arrival: ambulatory . Date/Time Provider Initiated Documentation: 10/31/20 23:51 . Limitations to Documentation: no limitations . Information obtained by: patient . History of Present Illness 50 year old M presents to the emergency department with the chief complaint of left shoulder pain, described as moderate, Patient reports no radiation. Patient started experiencing this day(s) (1) and it has been constant. No relieving factors improve symptom(s), No exacerbating factors reported . Related Data Home Medications Medication Instructions Recorded Confirmed meclizine 25 mg PO TID PRN #10 tab 10/21/20 meloxicam 7.5 mg PO DAILY 10/21/20 10/21/20 omeprazole 40 mg PO DAILY 10/21/20 10/21/20 Previous Rx's Medication Instructions Recorded meclizine 25 mg PO TID PRN #10 tab 10/21/20 Allergies Allergy/AdvReac Type Severity Reaction Status Date / Time morphine AdvReac Unverified 10/21/20 10:27 General Stated Complaint: Orthopedic NEELIMA: 5 Review of Systems Unobtainable due to (patient left before I could asses this) PFS Medical History Depression Diverticulitis Duodenitis Gastric ulcer Gastritis GERD (gastroesophageal reflux disease) Hiatal hernia History of urinary urgency Surgical History (Updated 07/26/19 @ 13:12 by Hortensia Young RN) Appendectomy Colonoscopy - MAC (05/13/17) EGD - MAC (05/13/17) S/P laparoscopic cholecystectomy (~07/26/19) wrist surgery Family History Maternal Grandmother Hypertension Diabetes Mother Stroke Cancer ovarian Maternal Grandfather Cancer lung Social History Smoking/Tobacco Use Status: Former Tobacco Use Smoking risk assessment performed?: Yes Alcohol Intake: current Alcohol Intake frequency: a few times a month Alcohol type: hard liquor Drug use: Occasionally Substance use type: marijuana Do you feel safe at home: Yes Do you feel safe in your relationship?: Yes Exam Const General: not ill appearing and not lethargic Orientation: alert HENMT Head: normal to inspection Neck Neck: normal visual inspection Resp Effort & Inspection: normal respiratory effort and able to speak in complete sentences Cardio Rate: regular rate Neuro General: patient alert and patient oriented x3 Extrem General: normal to inspection Psych Appearance: well kempt Speech and Movement: speech not slurred Course Vital Signs Vital signs: Vital Signs Temperature 36.5 C 10/31/20 23:56 Pulse 78 10/31/20 23:56 Respiratory Rate 20 10/31/20 23:56 Pulse Oximetry 95 10/31/20 23:56 Temperature 36.5 C 10/31/20 23:56 Temperature Source Temporal Artery Scan 10/31/20 23:56 Pulse 78 10/31/20 23:56 Respiratory Rate 20 10/31/20 23:56 Respiratory Effort Non-Labored 10/31/20 23:58 Blood Pressure Position Sitting 10/31/20 23:56 Pulse Oximetry 95 10/31/20 23:56 Oxygen Delivery Method Room Air 10/31/20 23:56 Oxygen Flow Rate 0 10/31/20 23:56 Pain Level 10 11/01/20 00:00
--- NOTE | 2020-11-01 00:12 | NUR.NOTE ---
Access called informing staff of pt with post surgical pain. RN out to receive pt, RN asking questions about pt surgical procedure. Pt very short and hostile with answers. RN asking required triage question pertaining to travel outside the [place], pt response I WAS IN THE [facility], WHERE WOULD I HAVE GONE! RN asked had he injured the shoulder? Pt response Well obviously! I had surgery. RN asked what he was prescribed for pain and if he had been prescribed any muscle relaxants considering he said my shoulder wont spasming. He then responded NO THEY DIDNT GIVE ME A FUCKING THING FOR MUSCLE SPASMS!. According to the , who brought the patient in, I gave him 2 tablets of oxycodone and 2 tylenol about 30-45min ago. RN finished triage and updated MD. in to see patient, pt eloped at 0015. Nursing Note:
== END 2020-11-01 00:15 | disposition other institution (70) ==
PROVIDERS: Emergency Provider Emergency Medicine; PCP Nurse Practitioner Family
DX: M25.512 Pain in left shoulder (principal); Z98.890 Other specified postprocedural states; Z53.29 Procedure and treatment not carried out because of patient's decision for other reasons
CPT/HCPCS: 99281

== ENCOUNTER 2021-02-26 22:05 | Outpatient (REF) | payer MEDICAID, SELFPAY ==
[2021-02-28 11:23] LABS: COVID-19 RT-PCR UVMMC Result Negative (Negative)
== END 2021-02-26 22:06 | disposition home or self-care (01) ==
LOC: LBN 22:05
PROVIDERS: PCP Nurse Practitioner Family; Visit Provider Nurse Practitioner Family
DX: Z20.822 Contact with and (suspected) exposure to COVID-19 (principal)
CPT/HCPCS: U0003

== ENCOUNTER 2021-06-15 19:10 | Outpatient (REF) | payer MEDICAID, SELFPAY ==
[2021-06-15 20:35] LABS: Anion Gap 9.5 mmol/L (3-11); BUN 19 mg/dL (7-18); CO2 26.5 mmol/L (21.0-32.0); CREATININE 1.2 mg/dL (0.70-1.30); Calcium 8.7 mg/dL (8.5-10.1); Chloride 105 mmol/L (98-107); Glucose 108 mg/dL (74-106); Potassium 3.7 mmol/L (3.5-5.1); Sodium 141 mmol/L (136-145)
== END 2021-06-15 19:11 | disposition home or self-care (01) ==
LOC: NCHCN 19:10
PROVIDERS: PCP Nurse Practitioner Family; Visit Provider Nurse Practitioner Family
DX: I10 Essential (primary) hypertension (principal)
CPT/HCPCS: 80048

== ENCOUNTER 2021-08-29 18:30 | Outpatient (REF) | payer MEDICAID, SELFPAY ==
[2021-08-29 18:22] LABS: Bilirubin Negative (Negative); Blood Trace-lysed (Negative); Clarity Clear (Clear); Glucose Negative (Negative); Ketones Negative (Negative); Leukocyte Esterase Negative (Negative); Nitrite Negative (Negative); Specific Gravity >= 1.030 (1.005-1.025); Urobilinogen 0.2 EU/dL (Up TO 0.2); pH 6.5 (5-8)
[2021-08-29 18:32] LABS: Bacteria Negative HPF (Negative); C & S Indicated? No; Crystals Negative HPF (Negative); Epithelial Cells Negative HPF (Negative); Mucus Trace (Negative); RBC 0-2 HPF (0-2); WBC 0-2 HPF (0-5)
[2021-08-29 22:16] LABS: PSA, Screening 1.8 ng/mL (<=3.5)
== END 2021-08-29 18:31 | disposition home or self-care (01) ==
LOC: LBN 18:30
PROVIDERS: PCP Nurse Practitioner Family; Visit Provider Nurse Practitioner Gerontology
DX: R31.29 Other microscopic hematuria (principal); R39.89 Other symptoms and signs involving the genitourinary system; Z12.5 Encounter for screening for malignant neoplasm of prostate
CPT/HCPCS: 84153; 81003; 81015; 87086

== ENCOUNTER 2022-07-26 07:23 | Emergency (ER) | payer OTHER, SELFPAY ==
[2022-07-26 07:31] VITALS: BP 154/99; PULSE 67; RESP 16; TEMP 36.4; O2SAT 96
--- NOTE | 2022-07-26 08:00 | DI.RAD_ITS ---
Exam(s) XR THUMB RT EXAM: XR THUMB RT CLINICAL HISTORY: pain. TECHNIQUE: 2D digital imaging was performed. Three views. COMPARISON: CR,XR XR HAND LT COMPLETE from 05/01/2019 FINDINGS: BONES: No acute fracture is present. No bony destructive lesion is seen. There is a smoothly margina ariadna small bony density seen at the dorsal base of the distal phalanx of the thumb consistent with an old injury. There is an old 5th metacarpal fracture. JOINTS: No dislocation present. SOFT TISSUE: Normal. IMPRESSION: No acute abnormality. DATA REPOSITORY: RADIATION DOSE DELIVERED:
--- NOTE | 2022-07-26 08:02 | W.ED.GENAD ---
Discharge Plan Disposition Patient Disposition: Home Discharge Details Chief Complaint: Orthopedic Clinical Impression: Tendinitis, Pain of right thumb Primary Care Provider: Nanci Spivey ED Provider: Wilfred Carrasco Home Meds and New Rx's Prescriptions: No Action lisinopril 10 mg tablet 10 mg PO DAILY omeprazole 40 mg capsule,delayed release(DR/EC) 40 mg PO DAILY Patient Comments: TAKE 1 CAPSULE BY MOUTH DAILY Medical Decision Making X-rays of the thumb did not reveal any acute abnormalities. Given the patient's level of pain, I am wondering if he does not have some tendinitis. He will be placed in a cock-up splint. Instructions for Tylenol Motrin. Ice. Follow-up with workamanda tucker. HPI General Date/Time Provider Initiated Documentation: 07/26/22 08:01. HPI Narrative: 52-year-old presents to the emergency room with complaint of right thumb pain. 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 The pain got worse throughout the day to the point that he was unable to use his thumb. He states that he went home and this morning when he woke up the pain was worse swelling was worse and he practically has very limited range of motion of the thumb. No direct trauma to the thumb No fevers no chills. Related Data Home Medications Medication Instructions Recorded Confirmed omeprazole 40 mg capsule,delayed 40 mg PO DAILY 10/21/20 07/26/22 release lisinopril 10 mg tablet 10 mg PO DAILY 08/29/21 07/26/22 Allergies Allergy/AdvReac Type Severity Reaction Status Date / Time No Known Allergies Allergy Unverified 07/26/22 08:27 General Stated Complaint: Orthopedic NEELIMA: 4 Review of Systems Narrative: 10 point review of system is negative unless otherwise specified in the HPI [facility] All Active Problems (Updated 07/26/22 @ 08:48 by Wilfred Carrasco MD) Tendinitis (Acute) Pain of right thumb (Acute) Vertigo (Acute) Left shoulder pain (Acute) Aggressive behavior of adult (Acute) Chest pain, non-cardiac (Acute) Postcholecystectomy diarrhea (Acute) Discharge planning issues (Acute) DVT prophylaxis (Acute) H/O acute gastritis (Chronic) Nausea vomiting and diarrhea (Acute) LUQ abdominal pain (Acute) Chest pain (Acute) Postop check (Acute) Pre-op exam (Acute) Male pelvic pain (Acute) Hand laceration (Acute) History of urinary urgency (Acute) RUQ abdominal pain (Acute) Rectal arterial hemorrhage (Acute) Hiatal hernia (Chronic) Elevated LFTs (Acute) Depression (Acute) Trazodone overdose w2ith transient bradycardia and hypertension, admitted to [facility]. One other psychiatric admission for a suicidal attempt. Suicidal ideations (Acute 12/25/13) Talked about shooting himself, driving his car very fast off the road, or taking excessive pills. H/O surgical procedure (Chronic) A. APPENDECTOMY WITH LYSIS OF ADHESIONS 10/2006 B. COLONOSCOPY C: EXPLORATORY LAPAROTOMY. Chronic abdominal pain (Chronic) Possible irritable bowel syndrome. Hospsitalized x2 with a negative workup. Anal fissure (Chronic) Diverticulitis of sigmoid colon (Acute) Chest pressure (Acute) GERD (gastroesophageal reflux disease) (Acute) Medical History Depression Diverticulitis Duodenitis Gastric ulcer Gastritis GERD (gastroesophageal reflux disease) Hiatal hernia History of urinary urgency Surgical History (Updated 07/26/19 @ 13:12 by Hortensia Young RN) Appendectomy Colonoscopy - MAC (05/13/17) EGD - MAC (05/13/17) S/P laparoscopic cholecystectomy (~07/26/19) wrist surgery Family History Maternal Grandmother Hypertension Diabetes Mother Stroke Cancer ovarian Maternal Grandfather Cancer lung Social History Smoking/Tobacco Use Status: Former Tobacco Use Smoking risk assessment performed?: Yes Alcohol Intake: current Alcohol Intake frequency: a few times a month Alcohol type: hard liquor Drug use: Occasionally Substance use type: marijuana Do you feel safe at home: Yes Do you feel safe in your relationship?: Yes Exam Narrative Exam Narrative: General: A,A Ox3, Calm, no apparent distress, well developed, pleasant and cooperative Head Size/Shape: normocephalic, atraumatic Eyes Pupils: PERRLA Extraocular Mobility: intact and symmetrical Conjunctiva: non-injected, anicteric, no discharge Ears, Nose, Throat Nares: patent bilaterally Oral Cavity: moist Respiratory Effort: no dyspnea Heart Auscultation: Normal cap refill Musculoskeletal System Joints, Bones, and Muscles: Right thumb. Diffuse swelling. Decreased range of motion. Very tender Extremities: warm and well-perfused, no cyanosis, capillary refill <2 seconds Skin Skin Inspection: no rash, no lesions, no bruising Neurological Motor: normal tone, normal strength, moving all extremities equally Psychiatric: good insight, good judgement, normal mood and affect Course Vital Signs Vital signs: Vital Signs Temperature 36.4 C L 07/26/22 07:31 Pulse 67 07/26/22 07:31 Respiratory Rate 16 07/26/22 07:31 Blood Pressure 154/99 H 07/26/22 07:31 Pulse Oximetry 96 07/26/22 07:31 Temperature 36.4 C L 07/26/22 07:31 Temperature Source Oral 07/26/22 07:31 Pulse 67 07/26/22 07:31 Respiratory Rate 16 07/26/22 07:31 Respiratory Effort Normal 07/26/22 07:38 Blood Pressure 154/99 H 07/26/22 07:31 Blood Pressure Position Sitting 07/26/22 07:31 Pulse Oximetry 96 07/26/22 07:31 Oxygen Delivery Method Room Air 07/26/22 07:31 Oxygen Flow Rate 0 07/26/22 07:31 Pain Level 8 07/26/22 07:31
[2022-07-26] MEDS: Ibuprofen 600 MG TAB PO (09:03)
== END 2022-07-26 09:12 | disposition home or self-care (01) ==
PROVIDERS: Emergency Provider Emergency Medicine; PCP Nurse Practitioner Family
DX: M77.8 Other enthesopathies, not elsewhere classified (principal); M79.644 Pain in right finger(s)
CPT/HCPCS: 99283; 73140

== ENCOUNTER 2022-08-27 18:46 | Outpatient (REF) | payer MEDICAID, SELFPAY ==
[2022-08-27 18:57] LABS: Abs Immature Grans 0.05 10^3/uL (0.0-0.06); Absolute Basophil Count 0.12 10^3/uL (0.0-0.2); Absolute Eosinophil Count 0.27 10^3/uL (0.0-0.7); Absolute Lymphocyte Count 2.65 10^3/uL (1.2-3.4); Absolute Monocyte Count 0.45 10^3/uL (0.1-0.8); Absolute Neutrophil Count 2.42 10^3/uL (1.2-6.7); Eosinophils % 4.5; HCT 43.1 % (40.0-50.0); HGB 15.4 g/dL (13.5-17.5); Immature Grans % 0.8; Lymphocytes % 44.5; MCH 30.1 pg (27.0-33.0); MCHC 35.7 % (32.0-36.0); MCV 84 fL (80-95); MPV 9.7 fL (8.0-11.0); Monocytes % 7.6; Neutrophils % 40.6; Platelet Count 252 10^3/uL (130-400); RBC 5.12 10^6/uL (4.36-5.78); RDW 11.9 % (11.8-14.1); RDW-SD 36.4 fL; WBC 5.96 10^3/uL (4.4-10.8)
[2022-08-27 19:06] LABS: ALT 28 U/L (16-63); AST 19 U/L (15-37); Alkaline Phosphatase 150 U/L (46-116); Anion Gap 8.9 mmol/L (3-11); BUN 19 mg/dL (7-18); Bilirubin, Total 0.5 mg/dL (0.2-1.0); CO2 25.1 mmol/L (21.0-32.0); CREATININE 1.2 mg/dL (0.70-1.30); Calcium 8.5 mg/dL (8.5-10.1); Calculated LDL 78 mg/dL (<100); Chloride 106 mmol/L (98-107); Cholesterol 168 mg/dL (<200); Estimated GFR 72.76 (mL/min/1.73m2); Glucose 103 mg/dL (74-106); HDL Cholesterol 32 mg/dL (40-60); Potassium 3.8 mmol/L (3.5-5.1); Sodium 140 mmol/L (136-145); Triglyceride 291 mg/dL (<150)
[2022-08-27 19:42] LABS: Vitamin D 25 Total 18.5 ng/mL (30-100)
== END 2022-08-27 18:47 | disposition home or self-care (01) ==
LOC: NCHCN 18:46
PROVIDERS: PCP Nurse Practitioner Family; Visit Provider Nurse Practitioner Family
DX: I10 Essential (primary) hypertension (principal); E55.9 Vitamin D deficiency, unspecified; K21.9 Gastro-esophageal reflux disease without esophagitis; G43.909 Migraine, unspecified, not intractable, without status migrainosus; E78.1 Pure hyperglyceridemia
CPT/HCPCS: 80053; 80061; 82306; 85025

== ENCOUNTER 2022-09-04 13:07 | Outpatient (CLI) | payer OTHER, SELFPAY ==
--- NOTE | 2022-09-04 07:30 | DI.MRI_ITS ---
Exam(s) MR UPPER EXTREMITY RT WO EXAM: MR UPPER EXTREMITY RT WO CLINICAL HISTORY: Persistent pain rt thumb, m79.644. TECHNIQUE: Multiplanar multisequence MRI was performed. COMPARISON: Comparison x-rays 07/26/2022. FINDINGS: BONES: There is no fracture or contusion pattern. Specifically, there is no evidence of a contusion o r fracture in the trapezium or 1st metacarpal bone. There is a simple cyst in the subcortical base o f the 1st metacarpal bone. There is a small hemangioma or fatty rest in the triquetral bone. JOINTS: The radiocarpal joint is unremarkable. The carpal joints are unremarkable. TENDONS: Flexors: Unremarkable. Extensors: Unremarkable. MUSCLES: Unremarkable. MEDIAN NERVE: Unremarkable on this noncontrast examination. ULNAR NERVE: Unremarkable on this noncontrast examination. SOFT TISSUES: There is a 6 x 5 mm ganglion cyst at the pisotriquetral joint. LIGAMENTS: Unremarkable. TRIANGULAR FIBROCARTILAGE: Unremarkable. OTHER: IMPRESSION: 1. No acute abnormality. 2. No evidence of an occult fracture, tendon or ligament tear. DATA REPOSITORY:
== END 2022-09-04 13:27 ==
PROVIDERS: PCP Nurse Practitioner Family; Visit Provider Nurse Practitioner Family
DX: M79.644 Pain in right finger(s) (principal)
CPT/HCPCS: 73218

== ENCOUNTER 2022-11-14 15:22 | Outpatient (REF) | payer MEDICAID, SELFPAY ==
[2022-11-14 14:38] LABS: HCT 42.8 % (40.0-50.0); HGB 15.3 g/dL (13.5-17.5); MCH 30.4 pg (27.0-33.0); MCHC 35.7 % (32.0-36.0); MCV 85 fL (80-95); MPV 9.9 fL (8.0-11.0); Platelet Count 237 10^3/uL (130-400); RBC 5.04 10^6/uL (4.36-5.78); RDW 12.1 % (11.8-14.1); RDW-SD 37.1 fL
[2022-11-14 14:59] LABS: ALT 19 U/L (16-63); AST 14 U/L (15-37); Alkaline Phosphatase 140 U/L (46-116); Amylase 71 U/L (25-115); Anion Gap 10.8 mmol/L (3-11); BUN 17 mg/dL (7-18); Bilirubin, Total 0.4 mg/dL (0.2-1.0); CO2 24.2 mmol/L (21.0-32.0); CREATININE 1.3 mg/dL (0.70-1.30); Calcium 9.1 mg/dL (8.5-10.1); Chloride 106 mmol/L (98-107); Glucose 113 mg/dL (74-106); Lipase 32 U/L (16-77); Potassium 4.2 mmol/L (3.5-5.1); Sodium 141 mmol/L (136-145); Total Protein 6.8 g/dL (6.4-8.2)
[2022-11-14 23:14] LABS: PSA, Screening 1.7 ng/mL (<=3.5)
== END 2022-11-14 15:23 | disposition home or self-care (01) ==
LOC: NCHCN 15:22
PROVIDERS: PCP Nurse Practitioner Family; Visit Provider Nurse Practitioner Family
DX: R10.11 Right upper quadrant pain (principal); I10 Essential (primary) hypertension; K91.5 Postcholecystectomy syndrome; N40.1 Benign prostatic hyperplasia with lower urinary tract symptoms; E55.9 Vitamin D deficiency, unspecified; Z12.5 Encounter for screening for malignant neoplasm of prostate; K21.9 Gastro-esophageal reflux disease without esophagitis; R79.89 Other specified abnormal findings of blood chemistry
CPT/HCPCS: 80053; 83690; 84153; 85027; 82150

== ENCOUNTER → 2022-12-12 01:41 | Outpatient (CLI) | payer MEDICAID, SELFPAY ==
--- NOTE | 2022-12-12 | DI.US_ITS ---
Exam(s) US ABDOMEN EXAM: US ABDOMEN CLINICAL HISTORY: RUQ PAIN R10.11 GERD K21.9 DIARRHEA K91.5 TECHNIQUE: Ultrasound abdomen performed using standard protocol. COMPARISON: No exams were available for comparison FINDINGS: LIVER: Normal size and echogenicity. No focal liver lesions are seen. GALLBLADDER: Status post cholecystectomy. No evidence of cholelithiasis. No evidence of wall thicken ing. No pericholecystic fluid identified. VALENTINE'S SIGN: Negative. BILIARY SYSTEM: No intrahepatic or extrahepatic biliary ductal dilation. KIDNEYS: Kidneys are symmetric in size. No evidence of renal calculi. No evidence of hydronephrosis. No renal mass or cyst identified. PANCREAS: Normal where visualized. SPLEEN: Not enlarged. ABDOMINAL AORTA AND IVC: Visualized portions normal caliber. ASCITES: None seen. IMPRESSION: Status post cholecystectomy. No acute abnormality. DATA REPOSITORY:
== END ==
PROVIDERS: PCP Nurse Practitioner Family; Visit Provider Nurse Practitioner Family
DX: K21.9 Gastro-esophageal reflux disease without esophagitis; K91.5 Postcholecystectomy syndrome
CPT/HCPCS: 76700

== ENCOUNTER 2023-01-08 08:31 | Emergency (ER) | payer MEDICAID, SELFPAY ==
[2023-01-08] VITALS (31 sets, daily range): BP systolic 95–188; BP diastolic 36–113; PULSE 52–66; RESP 18; O2SAT 95–100
[2023-01-08 08:49] LABS: Abs Immature Grans 0.09 10^3/uL (0.0-0.06); Absolute Basophil Count 0.03 10^3/uL (0.0-0.2); Absolute Eosinophil Count 0.01 10^3/uL (0.0-0.7); Absolute Lymphocyte Count 2.14 10^3/uL (1.2-3.4); Absolute Monocyte Count 0.67 10^3/uL (0.1-0.8); Basophils % 0.2; Eosinophils % 0.1; HGB 15.5 g/dL (13.5-17.5); Immature Grans % 0.7; Lymphocytes % 15.9; MCH 30.2 pg (27.0-33.0); MCHC 36.9 % (32.0-36.0); MCV 82 fL (80-95); MPV 8.8 fL (8.0-11.0); Neutrophils % 78.1; Platelet Count 295 10^3/uL (130-400); RBC 5.14 10^6/uL (4.36-5.78); RDW 11.9 % (11.8-14.1); RDW-SD 35.2 fL; WBC 13.47 10^3/uL (4.4-10.8)
[2023-01-08 08:50] LABS: Lactate 2.1 mmol/L (0.6-1.4)
[2023-01-08] MEDS: HYDROmorphone 2 MG/ML SYR 1 MG IVP ×2 (08:50→09:00)
[2023-01-08] MEDS: Ketorolac 15 MG/ML VIAL IVP (08:50)
[2023-01-08] MEDS: Lactated Ringers 1,000 ML 1000 ML IV (08:50)
[2023-01-08 08:53] LABS: Absolute Neutrophil Count 10.52 10^3/uL (1.2-6.7)
[2023-01-08] MEDS: Ondansetron 4 MG/2 ML VIAL IVP (08:54)
--- NOTE | 2023-01-08 09:00 | DI.CT_ITS ---
Exam(s) CT THORAX ABD/PEL CTA EXAM: CT THORAX ABD/PEL CTA CLINICAL HISTORY: recent femoral art clot, severe back lt abd pain. TECHNIQUE: Imaging Protocol: Axial CT angiography was performed with multi-slice acquisition and mu lti-planar and/or 3D reconstructions. CONTRAST MATERIAL: Intravenous: Omnipaque 350 Contrast volume:100 ml COMPARISON: CT CT ABDOMEN PELVIS WO/W from 04/21/[address] CHEST/ABD/PEL W from 08/07/[address] BRAIN NECK CTA from 10/21/2020 FINDINGS: CHEST: Pulmonary Arteries: No evidence of filling defects to suggest pulmonary emboli. Tracheobronchial tree: No bronchiectasis or mucus plugging. Mediastinum and Payton: No dominant adenopathy or fluid collection. Pulmonary parenchyma: Somewhat limited evaluation due to expiratory changes. Left lower lobe infiltr ate. Stable nodules posterior left lung base. Pleura: No effusion. No pneumothorax. Heart: The heart is notdilated. No coronary artery calcifications are seen. Aorta: Thoracic aorta non-dilated. Bones: Vertebral bodies are maintained in height. Prominent endplate osteophytes in the lower thorac ic region. Tubes, Catheters, and Lines: None. ABDOMEN and PELVIS: Liver: Normal size. Normal density. No suspicious measurable mass. Portal, Superior Mesenteric, and Splenic Veins: Grossly normal. Not well opacified due to arterial p hase of examination. Gallbladder and Biliary Tract: Status post cholecystectomy. No radiodense calculus. No biliary dilat ation. Pancreas: Normal density, no abnormal calcifications or inflammatory process. Spleen: Normal. Adrenals: No masses seen. Kidneys: Normal size, contour and axis. Mild left hydronephrosis. Tiny stone at ureterovesical junc tion. No additional calculi visible. No suspicious masses seen. Vasculature: Abdominal aorta non-dilated. No significant atherosclerotic changes. Celiac axis, SMA, renal arteries are normal in diameter and patent. Common, internal and external iliac arteries and common femoral arteries are normal in diameter. No significant stenosis or thrombus. The right supe rficial femoral artery shows thrombus and is dilated. Left superficial femoral artery normal diamete r and patent . The venous system is not opacified with contrast and not able to be evaluated. Bowel: Sigmoid diverticulosis. No obstruction or bowel wall thickening. Appendix is not seen. Peritoneal Cavity: No ascites, collection or mesenteric inflammatory response. Lymph Nodes: Within normal limits. Soft Tissues: Unremarkable. Bladder: Symmetric distention, no gross wall thickening. Reproductive Organs: Unremarkable as visualized. Lymph Nodes: Within normal limits. Bones: Mild degenerative changes, greatest at L5-S1. IMPRESSION: 1. No evidence of pulmonary embolism. Left lower lobe infiltrate. 2. Clot in a dilated right superficial femoral artery. 3. Tiny calcification at left ureterovesical junction causing mild hydronephrosis. No additional kim culi. 4. Findings called to Dr. Williamson of the emergency department. RADIATION DOSE DELIVERED: Total DLP DATA REPOSITORY: All CT scans at this facility are submitted to the National Radiology Data Registry (NRDR) Dose Index Registry (DIR) with the [employer] (ACR). RADIATION OPTIMIZATION: All CT scans at this facility use at least one of these dose optimization te chniques: automated exposure control; mA and/or kV adjustment per patient size (includes targeted exa ms where dose is matched to clinical indication); or iterative reconstruction.
[2023-01-08 09:05] LABS: ALT 27 U/L (16-63); AST 11 U/L (15-37); Albumin 3.9 g/dL (3.4-5.0); Alkaline Phosphatase 93 U/L (46-116); BUN 16 mg/dL (7-18); Bilirubin, Total 0.8 mg/dL (0.2-1.0); CREATININE 1.5 mg/dL (0.70-1.30); Calcium 9.6 mg/dL (8.5-10.1); Chloride 101 mmol/L (98-107); Estimated GFR 55.67 (mL/min/1.73m2); Glucose 129 mg/dL (74-106); Lipase 25 U/L (16-77); Magnesium 1.7 mg/dL (1.8-2.4); Potassium 3.7 mmol/L (3.5-5.1); Sodium 136 mmol/L (136-145); Total Protein 7.4 g/dL (6.4-8.2)
[2023-01-08] MEDS: Normal Saline - Diluent 50 ML VIAL IJ (09:19)
[2023-01-08] MEDS: Omnipaque 350 MG/ML 100 ML BTL IJ (09:19)
[2023-01-08] MEDS: Ketamine 500 MG/10 ML VIAL 30 MG IVP (09:33)
--- NOTE | 2023-01-08 10:08 | W.ED.GENAD ---
Discharge Plan Disposition Patient Disposition: Home Condition: Stable Discharge Details Clinical Impression: Calculus of distal left ureter, Kidney stone, Hydronephrosis of left kidney, Left lower lobe pulmonary infiltrate Primary Care Provider: BARRY DIEZ ED Provider: Jonathan Williamson Home Meds and New Rx's Prescriptions: New tamsulosin [Flomax] 0.4 mg capsule 0.4 mg PO DAILY Qty: 14 0RF Continued cholecalciferol (vitamin D3) 25 mcg (1,000 unit) capsule 25 mcg PO DAILY benzonatate 100 mg capsule 100 mg PO TID PRN (Reason: cough) Qty: 14 0RF albuterol sulfate [Proventil HFA] 90 mcg/actuation HFA aerosol inhaler 2 puff inhalation Q6H PRN (Reason: shortness of breath or wheezing) Qty: 8.5 0RF azithromycin 250 mg tablet See Rx Instructions PO .COMPLEX Qty: 6 0RF Rx Instructions: For 250 mg dose pack: take 500 mg today (day 1), then 250 mg for 4 days (days 2-5) PO amoxicillin-pot clavulanate 875-125 mg tablet 1 tab PO Q12H Qty: 14 0RF omeprazole 40 mg capsule,delayed release(DR/EC) 40 mg PO DAILY Patient Comments: TAKE 1 CAPSULE BY MOUTH DAILY No Action lisinopril 10 mg tablet 40 mg PO DAILY Discharge Instructions Instructions: Kidney Stones (ED) Additional Instructions: Please follow-up with vascular surgery as directed. Please contact your primary care physician to arrange follow-up. Be sure to discuss findings on CT. Additional outpatient follow-up may be necessary for your lung findings. Strain your urine to attempt to collect kidney stone. Continue to take Flomax as prescribed. Please follow-up with urology. Return to the ER immediately for any worsening or new concerning symptoms. Referrals: [facility] [Provider Group] BARRY DIEZ, CURB SETTER [Primary Care Provider] - Discharge Data Discharge Date/Time-TO BE ENTERED AT DEPARTURE: 01/08/23 11:56 Medical Decision Making 1022 --52-year-old with history of male pelvic pain, diverticulitis, recently seen at outside hospital and found to have right femoral arterial occlusion, here today with severe left back, flank and abdominal pain. Patient is quite uncomfortable on initial assessment. Patient was given Dilaudid 1 mg IV and Toradol 15 mg IV. He was reassessed and continued to have severe pain. Additional Dilaudid 1 mg IV was given. Patient was also given some dissociative dose of ketamine. Zofran was given as an antiemetic. CTA of the thorax, abdomen and pelvis was interpreted by radiology: IMPRESSION: 1. No evidence of pulmonary embolism. ? Left lower lobe infiltrate. 2. Clot in a dilated right superficial femoral artery. 3. Tiny calcification at left ureterovesical junction causing mild hydronephrosis.? No additional calculi. 4. Findings called to Dr. Williamson of the emergency department. We will initiate treatment with Flomax. Obtained outside hospital records from [facility] where patient presented on 01/06/2023 to the emergency department with right lower extremity pain for [address]. [address] imaging that revealed S FA thrombus with partial reconstitution distally, he was started on heparin and transferred to [facility]. Patient was also noted to have a cough for 2 weeks, was afebrile nontoxic-appearing, he been on antibiotics for the past several days. Viral respiratory infection panel was negative. CTA of the chest revealed lobulated density in the left lower lobe and plan was to continue antibiotics and follow-up outpatient. 1140 --patient reassessed and feeling much better. Plan for discharge with outpatient follow-up with urology. Patient to follow-up with PCP regarding lung findings. Patient to follow-up with vascular surgery as previously directed. Usual customary discharge instructions reviewed. Lab Data Lab results reviewed: Yes I reviewed the patient's lab results. Labs: Laboratory Tests Range/Units 01/08/23 08:42 WBC (4.4-10.8) 10^3/uL 13.47 H RBC (4.36-5.78) 10^6/uL 5.14 Hgb (13.5-17.5) g/dL 15.5 Hct (40.0-50.0) % 42.0 MCV (80-95) fL 82 MCH (27.0-33.0) pg 30.2 MCHC (32.0-36.0) % 36.9 H RDW (11.8-14.1) % 11.9 Plt Count (130-400) 10^3/uL 295 MPV (8.0-11.0) fL 8.8 Immature Gran % 0.7 Neutrophils % 78.1 Lymphocytes % 15.9 Monocytes % 5.0 Eosinophils % 0.1 Basophils % 0.2 Nucleated RBC % (0.0-0.3) % 0.0 Absolute Neutrophils (1.2-6.7) 10^3/uL 10.52 H Absolute Lymphocytes (1.2-3.4) 10^3/uL 2.14 Absolute Monocytes (0.1-0.8) 10^3/uL 0.67 Absolute Eosinophils (0.0-0.7) 10^3/uL 0.01 Absolute Basophils (0.0-0.2) 10^3/uL 0.03 VBG Lactate (0.6-1.4) mmol/L 2.1 H Sodium (136-145) mmol/L 136 Potassium (3.5-5.1) mmol/L 3.7 Chloride (98-107) mmol/L 101 Carbon Dioxide (21.0-32.0) mmol/L 23.0 Anion Gap (3-11) mmol/L 12.0 H BUN (7-18) mg/dL 16 Creatinine (0.70-1.30) mg/dL 1.5 H Est GFR (CKD-EPI 2020) (mL/min/1.73m2) 55.67 Glucose (74-106) mg/dL 129 H Calcium (8.5-10.1) mg/dL 9.6 Magnesium (1.8-2.4) mg/dL 1.7 L Total Bilirubin (0.2-1.0) mg/dL 0.8 AST (15-37) U/L 11 L ALT (16-63) U/L 27 Alkaline Phosphatase (46-116) U/L 93 Total Protein (6.4-8.2) g/dL 7.4 Albumin (3.4-5.0) g/dL 3.9 Lipase (16-77) U/L 25 HPI General Mode of arrival: EMS. Date/Time Provider Initiated Documentation: 01/08/23 08:40. Limitations to Documentation: no limitations. Information obtained by: patient and family. HPI Narrative: 52-year-old male presents with chief complaint of back pain. Patient notes that severe back pain that started this morning. Pain is localized to left flank and radiated to his abdomen. Pain is unbearable. He has associated nausea. Of note, patient was recently seen at outside hospital ED and found to have femoral artery clot, was transferred to [facility] and evaluated and found to not require emergent treatment and was discharged yesterday. Patient has had recent cough. He is being treated with antibiotics for potential pneumonia and also found to have questionable lung mass on imaging. Related Data Home Medications Medication Instructions Recorded Confirmed omeprazole 40 mg capsule,delayed 40 mg PO DAILY 10/21/20 01/08/23 release albuterol sulfate 90 mcg/actuation 2 puff inhalation Q6H PRN 01/04/23 01/08/23 aerosol inhaler (Proventil HFA) shortness of breath or wheezing #8.5 grams amoxicillin 875 mg-potassium 1 tab PO Q12H #14 tabs 01/04/23 01/08/23 clavulanate 125 mg tablet azithromycin 250 mg tablet See Rx Instructions PO .COMPLEX #6 01/04/23 01/08/23 tabs benzonatate 100 mg capsule 100 mg PO TID PRN cough #14 caps 01/04/23 01/08/23 cholecalciferol (vitamin D3) 25 25 mcg PO DAILY 01/04/23 01/08/23 mcg (1,000 unit) capsule lisinopril 10 mg tablet 40 mg PO DAILY 01/08/23 01/08/23 tamsulosin 0.4 mg capsule (Flomax) 0.4 mg PO DAILY #14 caps 01/08/23 Previous Rx's Medication Instructions Recorded albuterol sulfate 90 mcg/actuation 2 puff inhalation Q6H PRN 01/04/23 aerosol inhaler (Proventil HFA) shortness of breath or wheezing #8.5 grams amoxicillin 875 mg-potassium 1 tab PO Q12H #14 tabs 01/04/23 clavulanate 125 mg tablet azithromycin 250 mg tablet See Rx Instructions PO .COMPLEX #6 01/04/23 tabs benzonatate 100 mg capsule 100 mg PO TID PRN cough #14 caps 01/04/23 tamsulosin 0.4 mg capsule (Flomax) 0.4 mg PO DAILY #14 caps 01/08/23 Allergies Allergy/AdvReac Type Severity Reaction Status Date / Time No Known Allergies Allergy Verified 01/04/23 09:08 General Stated Complaint: Nk/Back Pain NEELIMA: 3 Review of Systems Narrative: Unobtainable secondary to acuity of condition and severe pain PFSH All Active Problems Left lower lobe pulmonary infiltrate (Acute) Hydronephrosis of left kidney (Acute) Kidney stone (Chronic) Calculus of distal left ureter (Acute) Strain of right thumb (Acute) De Quervain's tenosynovitis (Acute) Vertigo (Acute) Left shoulder pain (Acute) Aggressive behavior of adult (Acute) Chest pain, non-cardiac (Acute) Postcholecystectomy diarrhea (Acute) Discharge planning issues (Acute) DVT prophylaxis (Acute) H/O acute gastritis (Chronic) Nausea vomiting and diarrhea (Acute) LUQ abdominal pain (Acute) Chest pain (Acute) Postop check (Acute) Pre-op exam (Acute) Male pelvic pain (Acute) Hand laceration (Acute) History of urinary urgency (Acute) RUQ abdominal pain (Acute) Rectal arterial hemorrhage (Acute) Hiatal hernia (Chronic) Elevated LFTs (Acute) Depression (Acute) Trazodone overdose w2ith transient bradycardia and hypertension, admitted to [facility]. One other psychiatric admission for a suicidal attempt. Suicidal ideations (Acute 12/25/13) Talked about shooting himself, driving his car very fast off the road, or taking excessive pills. H/O surgical procedure (Chronic) A. APPENDECTOMY WITH LYSIS OF ADHESIONS 10/2006 B. COLONOSCOPY C: EXPLORATORY LAPAROTOMY. Chronic abdominal pain (Chronic) Possible irritable bowel syndrome. Hospsitalized x2 with a negative workup. Anal fissure (Chronic) Diverticulitis of sigmoid colon (Acute) Chest pressure (Acute) GERD (gastroesophageal reflux disease) (Acute) Medical History Depression Diverticulitis Duodenitis Gastritis GERD (gastroesophageal reflux disease) Surgical History Appendectomy Colonoscopy - MAC (05/13/17) EGD - MAC (05/13/17) S/P laparoscopic cholecystectomy (~07/26/19) wrist surgery Family History Maternal Grandmother Hypertension Diabetes Mother Stroke Cancer ovarian Maternal Grandfather Cancer lung Social History Smoking/Tobacco Use Status: Former Tobacco Use Smoking risk assessment performed?: Yes Alcohol Intake: current Alcohol Intake frequency: a few times a month Alcohol type: hard liquor Drug use: Occasionally Substance use type: marijuana Do you feel safe at home: Yes Do you feel safe in your relationship?: Yes Exam Const General: cooperative and no acute distress HENMT Mouth: moist mucous membranes Eyes Conjunctivae: normal conjunctivae Sclera: normal sclerae Resp Auscultation: clear to auscultation bilaterally, no rales, no rhonchi and no wheezes Cardio Rate: regular rate and not tachycardic Rhythm: regular rhythm GI Palpation: soft, not firm, no guarding, no masses, not rigid and nontender Skin General skin exam: no rashes or lesions noted Neuro General: patient alert, patient awake and tone normal Extrem General: no edema Psych Appearance: grossly normal Mental Status: mental status grossly normal Course Vital Signs Vital signs: Vital Signs Pulse 63 01/08/23 08:31 Respiratory Rate 18 01/08/23 08:31 Blood Pressure 174/113 H 01/08/23 08:31 Pulse Oximetry 100 01/08/23 08:31 Pulse 52 L 01/08/23 09:46 Pulse 58 L 01/08/23 09:02 Respiratory Rate 18 01/08/23 08:31 Respiratory Effort Normal 01/08/23 08:36 Blood Pressure 188/81 H 01/08/23 09:46 Blood Pressure Mean 123 01/08/23 09:46 Blood Pressure Position Right Lateral 01/08/23 08:31 Pulse Oximetry 99 01/08/23 09:46 Respiratory End-tidal CO2 24 01/08/23 09:46 Oxygen Delivery Method Nasal Cannula 01/08/23 09:45 Oxygen Flow Rate 3 01/08/23 09:45 Pain Level 10 01/08/23 08:31 Lab/Test Results Lab/Test Results: Laboratory Tests Range/Units 01/08/23 01/08/23 01/08/23 08:42 08:42 08:42 WBC (4.4-10.8) 10^3/uL 13.47 H RBC (4.36-5.78) 10^6/uL 5.14 Hgb (13.5-17.5) g/dL 15.5 Hct (40.0-50.0) % 42.0 MCV (80-95) fL 82 MCH (27.0-33.0) pg 30.2 MCHC (32.0-36.0) % 36.9 H RDW (11.8-14.1) % 11.9 Plt Count (130-400) 10^3/uL 295 MPV (8.0-11.0) fL 8.8 Immature Gran % 0.7 Neutrophils % 78.1 Lymphocytes % 15.9 Monocytes % 5.0 Eosinophils % 0.1 Basophils % 0.2 Nucleated RBC % (0.0-0.3) % 0.0 Absolute Neutrophils (1.2-6.7) 10^3/uL 10.52 H Absolute Lymphocytes (1.2-3.4) 10^3/uL 2.14 Absolute Monocytes (0.1-0.8) 10^3/uL 0.67 Absolute Eosinophils (0.0-0.7) 10^3/uL 0.01 Absolute Basophils (0.0-0.2) 10^3/uL 0.03 VBG Lactate (0.6-1.4) mmol/L 2.1 H Sodium (136-145) mmol/L 136 Potassium (3.5-5.1) mmol/L 3.7 Chloride (98-107) mmol/L 101 Carbon Dioxide (21.0-32.0) mmol/L 23.0 Anion Gap (3-11) mmol/L 12.0 H BUN (7-18) mg/dL 16 Creatinine (0.70-1.30) mg/dL 1.5 H Est GFR (CKD-EPI 2020) (mL/min/1.73m2) 55.67 Glucose (74-106) mg/dL 129 H Calcium (8.5-10.1) mg/dL 9.6 Magnesium (1.8-2.4) mg/dL 1.7 L Total Bilirubin (0.2-1.0) mg/dL 0.8 AST (15-37) U/L 11 L ALT (16-63) U/L 27 Alkaline Phosphatase (46-116) U/L 93 Total Protein (6.4-8.2) g/dL 7.4 Albumin (3.4-5.0) g/dL 3.9 Lipase (16-77) U/L 25
[2023-01-08] MEDS: Tamsulosin 0.4 MG CAPCR PO (11:25)
== END 2023-01-08 11:56 | disposition home or self-care (01) ==
PROVIDERS: Emergency Provider Student in an Organized Health Care Education/Training Program; PCP Nurse Practitioner Family
DX: N13.2 Hydronephrosis with renal and ureteral calculous obstruction (principal); R91.8 Other nonspecific abnormal finding of lung field; Z86.718 Personal history of other venous thrombosis and embolism; Z87.891 Personal history of nicotine dependence
CPT/HCPCS: 71275; 80053; 83690; 96361; 96374; 96375; 96376; 99285; 74174; 83605; 83735; 85025; 99284; J1170; J1885; J2405; J3490

== ENCOUNTER 2023-01-13 14:46 | Emergency (ER) | payer MEDICAID, SELFPAY ==
[2023-01-13 14:51] VITALS: BP 138/81; PULSE 96; RESP 22; TEMP 37.1; O2SAT 98
[2023-01-13] MEDS: Droperidol 5 MG/2 ML VIAL 2.5 MG IVP (15:25)
--- NOTE | 2023-01-13 15:27 | NUR.NOTE ---
Per Dr Calvillo request, [facility] website was accessed for this patients recent ER and hospital stays notes. Dr Calvillo read what she was looking for and this scriber disconnected from the Chart.
[2023-01-13 15:30] LABS: Abs Immature Grans 0.15 10^3/uL (0.0-0.06); Absolute Basophil Count 0.12 10^3/uL (0.0-0.2); Absolute Eosinophil Count 0.37 10^3/uL (0.0-0.7); Absolute Lymphocyte Count 3.38 10^3/uL (1.2-3.4); Absolute Monocyte Count 0.83 10^3/uL (0.1-0.8); Absolute Neutrophil Count 5.93 10^3/uL (1.2-6.7); Basophils % 1.1; Eosinophils % 3.4; HCT 44.7 % (40.0-50.0); HGB 16.4 g/dL (13.5-17.5); Immature Grans % 1.4; Lactate 1.8 mmol/L (0.6-1.4); Lymphocytes % 31.4; MCH 29.9 pg (27.0-33.0); MCHC 36.7 % (32.0-36.0); MCV 81 fL (80-95); MPV 9.1 fL (8.0-11.0); Monocytes % 7.7; Platelet Count 297 10^3/uL (130-400); RBC 5.49 10^6/uL (4.36-5.78); RDW 11.7 % (11.8-14.1); RDW-SD 34.5 fL; WBC 10.78 10^3/uL (4.4-10.8)
--- NOTE | 2023-01-13 15:46 | W.ED.GENAD ---
Discharge Plan Disposition Patient Disposition: Home Condition: Good Discharge Details Clinical Impression: Leg pain, right Primary Care Provider: BARRY DIEZ ED Provider: Cristian Calvillo Home Meds and New Rx's Prescriptions: No Action lisinopril 10 mg tablet 40 mg PO DAILY cholecalciferol (vitamin D3) 25 mcg (1,000 unit) capsule 25 mcg PO DAILY benzonatate 100 mg capsule 100 mg PO TID PRN (Reason: cough) Qty: 14 0RF albuterol sulfate [Proventil HFA] 90 mcg/actuation HFA aerosol inhaler 2 puff inhalation Q6H PRN (Reason: shortness of breath or wheezing) Qty: 8.5 0RF aspirin 81 mg tablet,delayed release (DR/EC) 81 mg PO DAILY Patient Comments: TAKE 1 TABLET BY MOUTH DAILY hydrochlorothiazide 12.5 mg tablet 12.5 mg PO DAILY Patient Comments: TAKE 1 TABLET BY MOUTH EVERY DAY atorvastatin 40 mg tablet 40 mg PO DAILY Patient Comments: TAKE 1 TABLET BY MOUTH DAILY omeprazole 40 mg capsule,delayed release(DR/EC) 40 mg PO DAILY Patient Comments: TAKE 1 CAPSULE BY MOUTH DAILY tamsulosin [Flomax] 0.4 mg capsule 0.4 mg PO DAILY Qty: 14 0RF Discharge Instructions Instructions: Leg Pain (ED) Medical Decision Making Emergent evaluation of right lower extremity pain. Initial differential included to acute arterial occlusion, infectious etiology, drug-seeking behavior. I reviewed the patient's recent medical records at [facility]. It appears that there was concern for a partial occlusion of the right superficial femoral artery. He was started on heparin at outside facility and transferred to [facility] for further evaluation. He was seen by vascular surgery at [facility] and felt that he had good collateral blood flow and that this was a chronic occlusion, not acute ischemia. ABIs were performed at that time which were within normal limits. Vascular surgery did not feel that the chronic occlusion was the cause of the patient's severe leg pain. They recommended discharge with baby aspirin and follow-up as needed. They recommended evaluation of other causes of his leg pain. On my physical examination he has no concerning signs or symptoms for acute limb ischemia. We will recheck ANA LUISA today and attempt pain control. 1600: Unable to get ANA LUISA or other arterial duplex ultrasound 1640: Patient's pain has resolved, he feels much better. Reviewed his lab work and do not feel that there are clinically significant abnormalities that need emergent dressing at this time. This time I do not have a clear explanation for his chronic right lower extremity , But I do not believe it is secondary to arterial insufficiency. I recommended continued outpatient follow-up as well as primary care follow-up for additional evaluation and treatment. Medical Records Medical records reviewed: Yes I reviewed the patient's medical records. HPI General Date/Time Provider Initiated Documentation: 01/13/23 14:52. Limitations to Documentation: no limitations. Information obtained by: patient and old records reviewed. HPI Narrative: 52-year-old gentleman with past medical history mental health disorder, diverticulitis, right leg pain presents for evaluation of persistent right lower extremity pain. Reports that he was seen at [place] last week for right lower extremity pain and diagnosed with a blood clot in his leg. He was started on a heparin infusion and transferred to [facility]. He states that when he got to [facility] they stopped the heparin drip and told him that he did not have a blood clot and that he should follow-up as an outpatient. He states that he made an attempt to follow-up with vascular surgery at [facility], but they are not able to see him for another 2 weeks. He states that his pain is constant, severe. It is worse from the groin to the knee on the inner right thigh. He states that he gets no relief. He did reports some tingling in his leg. Related Data Home Medications Medication Instructions Recorded Confirmed omeprazole 40 mg capsule,delayed 40 mg PO DAILY 10/21/20 01/13/23 release albuterol sulfate 90 mcg/actuation 2 puff inhalation Q6H PRN 01/04/23 01/13/23 aerosol inhaler (Proventil HFA) shortness of breath or wheezing #8.5 grams benzonatate 100 mg capsule 100 mg PO TID PRN cough #14 caps 01/04/23 01/13/23 cholecalciferol (vitamin D3) 25 25 mcg PO DAILY 01/04/23 01/13/23 mcg (1,000 unit) capsule lisinopril 10 mg tablet 40 mg PO DAILY 01/08/23 01/13/23 tamsulosin 0.4 mg capsule (Flomax) 0.4 mg PO DAILY #14 caps 01/08/23 01/13/23 aspirin 81 mg tablet,delayed 81 mg PO DAILY 01/13/23 01/13/23 release atorvastatin 40 mg tablet 40 mg PO DAILY 01/13/23 01/13/23 hydrochlorothiazide 12.5 mg tablet 12.5 mg PO DAILY 01/13/23 01/13/23 Previous Rx's Medication Instructions Recorded albuterol sulfate 90 mcg/actuation 2 puff inhalation Q6H PRN 01/04/23 aerosol inhaler (Proventil HFA) shortness of breath or wheezing #8.5 grams benzonatate 100 mg capsule 100 mg PO TID PRN cough #14 caps 01/04/23 tamsulosin 0.4 mg capsule (Flomax) 0.4 mg PO DAILY #14 caps 01/08/23 Allergies Allergy/AdvReac Type Severity Reaction Status Date / Time No Known Allergies Allergy Verified 01/13/23 14:56 General Stated Complaint: Vascular NEELIMA: 3 PFSH All Active Problems (Updated 01/13/23 @ 16:38 by Cristian Calvillo MD) Leg pain, right (Acute) Left lower lobe pulmonary infiltrate (Acute) Hydronephrosis of left kidney (Acute) Kidney stone (Chronic) Calculus of distal left ureter (Acute) Strain of right thumb (Acute) De Quervain's tenosynovitis (Acute) Vertigo (Acute) Left shoulder pain (Acute) Aggressive behavior of adult (Acute) Chest pain, non-cardiac (Acute) Postcholecystectomy diarrhea (Acute) Discharge planning issues (Acute) DVT prophylaxis (Acute) H/O acute gastritis (Chronic) Nausea vomiting and diarrhea (Acute) LUQ abdominal pain (Acute) Chest pain (Acute) Postop check (Acute) Pre-op exam (Acute) Male pelvic pain (Acute) Hand laceration (Acute) History of urinary urgency (Acute) RUQ abdominal pain (Acute) Rectal arterial hemorrhage (Acute) Hiatal hernia (Chronic) Elevated LFTs (Acute) Depression (Acute) Trazodone overdose w2ith transient bradycardia and hypertension, admitted to [facility]. One other psychiatric admission for a suicidal attempt. Suicidal ideations (Acute 12/25/13) Talked about shooting himself, driving his car very fast off the road, or taking excessive pills. H/O surgical procedure (Chronic) A. APPENDECTOMY WITH LYSIS OF ADHESIONS 10/2006 B. COLONOSCOPY C: EXPLORATORY LAPAROTOMY. Chronic abdominal pain (Chronic) Possible irritable bowel syndrome. Hospsitalized x2 with a negative workup. Anal fissure (Chronic) Diverticulitis of sigmoid colon (Acute) Chest pressure (Acute) GERD (gastroesophageal reflux disease) (Acute) Medical History Gastritis Duodenitis Depression GERD (gastroesophageal reflux disease) Diverticulitis Surgical History S/P laparoscopic cholecystectomy (~07/26/19) wrist surgery EGD - [facility] (05/13/17) Colonoscopy - [facility] (05/13/17) Appendectomy Family History Maternal Grandmother Hypertension Diabetes Mother Stroke Cancer ovarian Maternal Grandfather Cancer lung Social History Smoking/Tobacco Use Status: Former Tobacco Use Smoking risk assessment performed?: Yes Alcohol Intake: current Alcohol Intake frequency: a few times a month Alcohol type: hard liquor Drug use: Occasionally Substance use type: marijuana Do you feel safe at home: Yes Do you feel safe in your relationship?: Yes Exam Narrative Exam Narrative: Review of Systems: All systems reviewed & are unremarkable except as noted in HPI and below Exam: Const: Well-nourished, Well-developed,, yelling, appears in distress HEENT: NACT / Eyes: PERRL, no conjunctival injection, and symmetrical lids / EARS Atraumatic external nose and ears / MOUTH Moist MM / NECK: Symmetric, trachea midline, No thyromegaly / THROAT oropharynx clear CVS: RRR, No murmurs or gallops. Peripheral pulses 2+ and equal in all extremities. Brisk capillary refill in all extremities. 2+ right femoral pulse, Doppler signal of popliteal, DP and PT pulses on the right RESP: Unlabored respiratory effort, Clear to auscultation bilaterally. No wheezes rales or rhonchi GI: Soft, Nontender/Nondistended, No hepatosplenomegaly. No guarding or rebound. MSK: Extremities w/o deformity or TTP, No cyanosis or clubbing, full range of motion Skin: Right lower extremity is warm, well-perfused, no skin mottling Neuro: sloop captain II-XII grossly intact. Sensation grossly intact, no focal neurologic deficits. Psych: Agitated Course Vital Signs Vital signs: Vital Signs Temperature 37.1 C 01/13/23 14:51 Pulse 96 H 01/13/23 14:51 Respiratory Rate 22 01/13/23 14:51 Blood Pressure 138/81 01/13/23 14:51 Pulse Oximetry 98 01/13/23 14:51 Temperature 37.1 C 01/13/23 14:51 Temperature Source Skin 01/13/23 14:51 Pulse 96 H 01/13/23 14:51 Respiratory Rate 22 01/13/23 14:51 Respiratory Effort Normal, Non-Labored 01/13/23 15:29 Respiratory Depth Normal 01/13/23 15:29 Respiratory Pattern Normal 01/13/23 15:29 Blood Pressure 138/81 01/13/23 14:51 Blood Pressure Position Sitting 01/13/23 14:51 Pulse Oximetry 98 01/13/23 14:51 Oxygen Delivery Method Room Air 01/13/23 14:51 Oxygen Flow Rate 0 01/13/23 14:51 Pain Level 10 01/13/23 14:51 Lab/Test Results Lab/Test Results: Laboratory Tests Range/Units 01/13/23 15:21 WBC (4.4-10.8) 10^3/uL 10.78 RBC (4.36-5.78) 10^6/uL 5.49 Hgb (13.5-17.5) g/dL 16.4 Hct (40.0-50.0) % 44.7 MCV (80-95) fL 81 MCH (27.0-33.0) pg 29.9 MCHC (32.0-36.0) % 36.7 H RDW (11.8-14.1) % 11.7 L Plt Count (130-400) 10^3/uL 297 MPV (8.0-11.0) fL 9.1 Immature Gran % 1.4 Neutrophils % 55.0 Lymphocytes % 31.4 Monocytes % 7.7 Eosinophils % 3.4 Basophils % 1.1 Nucleated RBC % (0.0-0.3) % 0.0 Absolute Neutrophils (1.2-6.7) 10^3/uL 5.93 Absolute Lymphocytes (1.2-3.4) 10^3/uL 3.38 Absolute Monocytes (0.1-0.8) 10^3/uL 0.83 H Absolute Eosinophils (0.0-0.7) 10^3/uL 0.37 Absolute Basophils (0.0-0.2) 10^3/uL 0.12 VBG Lactate (0.6-1.4) mmol/L 1.8 H
[2023-01-13 15:49] LABS: ALT 39 U/L (16-63); AST 14 U/L (15-37); Albumin 3.8 g/dL (3.4-5.0); Alkaline Phosphatase 119 U/L (46-116); Anion Gap 9.2 mmol/L (3-11); BUN 11 mg/dL (7-18); Bilirubin, Total 0.6 mg/dL (0.2-1.0); CO2 24.8 mmol/L (21.0-32.0); CREATININE 1.4 mg/dL (0.70-1.30); Calcium 9.8 mg/dL (8.5-10.1); Chloride 100 mmol/L (98-107); Estimated GFR 60.47 (mL/min/1.73m2); Glucose 147 mg/dL (74-106); Potassium 3.4 mmol/L (3.5-5.1); Sodium 134 mmol/L (136-145); Total Protein 7.7 g/dL (6.4-8.2)
[2023-01-13 16:51] VITALS: BP 144/63; PULSE 74; RESP 18; TEMP 36.9; O2SAT 97
== END 2023-01-13 16:52 | disposition home or self-care (01) ==
PROVIDERS: Emergency Provider Emergency Medicine; PCP Nurse Practitioner Family
DX: M79.604 Pain in right leg (principal)
CPT/HCPCS: 80053; 99283; 83605; 85025; J1790

== ENCOUNTER 2023-01-16 08:21 | Outpatient (RCR) | payer MEDICAID, SELFPAY ==
--- NOTE | 2023-01-16 08:15 | HOLTER_ITS ---
APPROVED REPORT Conclusion This is a 48-hour Holter monitor Rhythm throughout was sinus. Average heart rate was 81. Minimum was 60, maximum 122 There were very rare isolated atrial and ventricular ectopic beats There was one self-limited atrial run, 15 beats in duration There was no atrial fibrillation, no high-grade AV block, no pauses greater than 3 seconds No patient symptoms were reported
== END 2023-01-28 23:59 | disposition home or self-care (01) ==
LOC: CARDOPNVT 08:21
PROVIDERS: PCP Nurse Practitioner Family; Visit Provider Nurse Practitioner Family
DX: I74.3 Embolism and thrombosis of arteries of the lower extremities (principal); R00.0 Tachycardia, unspecified
CPT/HCPCS: 93225; 93226

== ENCOUNTER → 2023-02-18 02:12 | Outpatient (CLI) | payer MEDICAID, SELFPAY ==
--- NOTE | 2023-02-18 08:45 | DI.CT_ITS ---
Exam(s) CT CHEST WO EXAM: CT CHEST WO CLINICAL HISTORY: PULMONARY INFILTRATE, R91.8. TECHNIQUE: Imaging protocol: Axial computed tomography images were obtained and coronal and sagittal reformatted images were created and reviewed. COMPARISON: CT CT CHEST/ABD/PEL W from 08/07/[address] THORAX ABD/PEL CTA from 01/08/2023 FINDINGS: Tracheobronchial tree: Patent where visualized. Pulmonary parenchyma: No consolidation or dominant measurable mass. No architectural distortion. Ther e is a 3 mm nodule in the periphery of the right lower lobe. There are stable nodules in the left lo wer lobe. The larger measures 8 mm. The smaller 1 which is more lateral measures 5 mm. No other or new pulmonary nodules are seen. The left lower lobe infiltrate has largely resolved with residual a telectasis or scarring in the left lower lobe. No focal consolidating infiltrates are seen. Mediastinum and Payton: No dominant adenopathy or fluid collection. The esophagus is unremarkable. Thyroid gland: Unremarkable. Pleura: No effusion or pneumothorax. Heart: The heart is not dilated. No coronary artery calcifications are seen. No pericardial effusion. Aorta: Thoracic aorta non-dilated. Upper abdomen: Status post cholecystectomy. Lymph nodes: Within normal limits. Soft tissues: Unremarkable. Bones:Within normal limits for the patient's age. IMPRESSION: 1. Resolution of the left lower lobe infiltrate with residual atelectasis or scarring. 2. Stable pulmonary nodules. Twelve month follow-up CT scan of the chest is recommended for re-evalu ation. 3. No acute pulmonary process. RADIATION DOSE DELIVERED: Total DLP Total DLP DATA REPOSITORY: All CT scans at this facility are submitted to the National Radiology Data Registry (NRDR) Dose Index Registry (DIR) with the [employer] ([employer]). RADIATION OPTIMIZATION: All CT scans at this facility use at least one of these dose optimization te chniques: automated exposure control; mA and/or kV adjustment per patient size (includes targeted exa ms where dose is matched to clinical indication); or iterative reconstruction.
== END ==
PROVIDERS: PCP Nurse Practitioner Family; Visit Provider Nurse Practitioner Family
DX: R91.8 Other nonspecific abnormal finding of lung field (principal)
CPT/HCPCS: 71250

== ENCOUNTER 2023-08-04 11:05 | Outpatient (REF) | payer OTHER, SELFPAY ==
[2023-08-04 15:45] LABS: HCT 41.8 % (40.0-50.0); HGB 14.5 g/dL (13.5-17.5); MCH 29.5 pg (27.0-33.0); MCHC 34.7 % (32.0-36.0); MCV 85 fL (80-95); MPV 9.8 fL (8.0-11.0); Platelet Count 212 10^3/uL (130-400); RBC 4.92 10^6/uL (4.36-5.78); RDW 11.7 % (11.8-14.1); RDW-SD 35.9 fL; WBC 5.54 10^3/uL (4.4-10.8)
[2023-08-04 16:25] LABS: ALT 37 U/L (16-63); AST 16 U/L (15-37); Albumin 3.9 g/dL (3.4-5.0); Alkaline Phosphatase 166 U/L (46-116); Anion Gap 9.4 mmol/L (3-11); BUN 20 mg/dL (7-18); Bilirubin, Total 0.5 mg/dL (0.2-1.0); CO2 28.6 mmol/L (21.0-32.0); CREATININE 1.4 mg/dL (0.70-1.30); Calcium 8.7 mg/dL (8.5-10.1); Calculated LDL 46 mg/dL (<100); Chloride 106 mmol/L (98-107); Cholesterol 98 mg/dL (<200); Glucose 105 mg/dL (74-106); HDL Cholesterol 35 mg/dL (40-60); Potassium 3.8 mmol/L (3.5-5.1); Sodium 144 mmol/L (136-145); Total Protein 6.7 g/dL (6.4-8.2); Triglyceride 89 mg/dL (<150)
== END 2023-08-04 11:06 | disposition home or self-care (01) ==
LOC: NCHCN 11:05
PROVIDERS: PCP Nurse Practitioner Family; Visit Provider Nurse Practitioner Family
DX: I10 Essential (primary) hypertension (principal); Z13.220 Encounter for screening for lipoid disorders; Z00.00 Encounter for general adult medical examination without abnormal findings
CPT/HCPCS: 80053; 80061; 85027

== ENCOUNTER 2024-06-30 16:55 | Outpatient (REF) | payer OTHER, SELFPAY ==
[2024-06-30 16:27] LABS: HCT 41.6 % (40.0-50.0); HGB 14.1 g/dL (13.5-17.5); MCH 30.1 pg (27.0-33.0); MCHC 33.9 % (32.0-36.0); MCV 89 fL (80-95); MPV 10.1 fL (8.0-11.0); Platelet Count 184 10^3/uL (130-400); RBC 4.68 10^6/uL (4.36-5.78); RDW 12.6 % (11.8-14.1); RDW-SD 41.2 fL
[2024-06-30 16:56] LABS: ALT 37 U/L (16-63); AST 21 U/L (15-37); Alkaline Phosphatase 111 U/L (46-116); Anion Gap 8.4 mmol/L (3-11); BUN 17 mg/dL (7-18); Bilirubin, Total 0.9 mg/dL (0.2-1.0); CO2 28.6 mmol/L (21.0-32.0); CREATININE 1.2 mg/dL (0.70-1.30); Calcium 8.7 mg/dL (8.5-10.1); Calculated LDL 31 mg/dL (<100); Chloride 107 mmol/L (98-107); Cholesterol 95 mg/dL (<200); Estimated GFR 71.86 (mL/min/1.73m2); Glucose 101 mg/dL (74-106); HDL Cholesterol 48 mg/dL (>or=40); Potassium 4.1 mmol/L (3.5-5.1); Sodium 144 mmol/L (136-145); Total Protein 6.6 g/dL (6.4-8.2); Triglyceride 81 mg/dL (<150)
[2024-06-30 19:38] LABS: Hemoglobin A1C 5.4 % (<5.7)
[2024-07-01 09:53] LABS: HIV-1/2 Ag & Ab Screen Negative (Negative)
[2024-07-01 10:08] LABS: Hepatitis C Ab w Rflx HCV PCR Negative (Negative)
== END 2024-06-30 16:56 | disposition home or self-care (01) ==
LOC: NCHCN 16:55
PROVIDERS: PCP Nurse Practitioner Family; Visit Provider Nurse Practitioner Family
DX: Z11.59 Encounter for screening for other viral diseases (principal)
CPT/HCPCS: 80053; 80061; 85027; 86803; 87389; 83036

== ENCOUNTER 2024-08-04 17:13 | Outpatient (REF) | payer OTHER, SELFPAY ==
[2024-08-04 19:47] LABS: ESR 1 mm/hr (0-20)
[2024-08-04 19:49] LABS: HCT 40.2 % (40.0-50.0); HGB 14.2 g/dL (13.5-17.5); MCH 30.6 pg (27.0-33.0); MCHC 35.3 % (32.0-36.0); MCV 87 fL (80-95); MPV 10.5 fL (8.0-11.0); Platelet Count 155 10^3/uL (130-400); RBC 4.64 10^6/uL (4.36-5.78); RDW 12.2 % (11.8-14.1); RDW-SD 38.6 fL; WBC 6.91 10^3/uL (4.4-10.8)
[2024-08-04 20:00] LABS: C-Reactive Protein < 0.50 mg/dL (<or=0.5)
== END 2024-08-04 17:14 | disposition home or self-care (01) ==
LOC: NCHCN 17:13
PROVIDERS: PCP Nurse Practitioner Family; Visit Provider Nurse Practitioner Family
DX: I31.39 Other pericardial effusion (noninflammatory) (principal)
CPT/HCPCS: 85027; 85652; 86140